=== PATIENT | male | born 1950 | race Caucasian/White ===

== ENCOUNTER 2017-11-04 09:30 | Outpatient (RCR) | payer MEDICARE, SELFPAY | END 2017-11-10 23:59 | LOC: CR 09:30 | PROVIDERS: Visit Provider Internal Medicine Cardiovascular Disease | DX: I25.118 Atherosclerotic heart disease of native coronary artery with other forms of angina pectoris (principal); I47.2 Ventricular tachycardia; I25.5 Ischemic cardiomyopathy; I50.9 Heart failure, unspecified; R06.09 Other forms of dyspnea; R07.9 Chest pain, unspecified; R94.30 Abnormal result of cardiovascular function study, unspecified; I25.2 Old myocardial infarction; Z95.1 Presence of aortocoronary bypass graft; Z98.61 Coronary angioplasty status; Z95.810 Presence of automatic (implantable) cardiac defibrillator | CPT/HCPCS: 92971; G0166 ==

== ENCOUNTER → 2018-12-14 12:55 | Outpatient (CLI) | payer MEDICARE, SELFPAY ==
--- NOTE | 2018-12-14 13:45 | RAD_ITS ---
STUDY: X-RAY CHEST REASON FOR EXAM: Male, 68 years old. History of hypercholesterolemia with amiodarone therapy. Shortness of breath. TECHNIQUE: Frontal and lateral views of the chest. COMPARISON: August 12, 2017 FINDINGS: The lungs are hyperexpanded and unchanged. There is no demonstrated pleural abnormality. There is stable cardiomegaly, sternotomy wires, changes of coronary artery bypass grafting and a dual-lead cardiac pacer. Normal mediastinum and hank. Normal visualized pulmonary arteries. There is atherosclerotic calcification of the aortic arch with tortuosity unchanged. There is osteopenia of the thoracic spine with spondylosis, mild anterior wedging of a few mid thoracic vertebral bodies and increased kyphosis. Normal visualized ribs, clavicles, and shoulders. There is no demonstrated abnormality of the visualized soft tissue structures of the upper abdomen. RAD/Chest PA and Lateral IMPRESSION: Stable cardiomegaly with hyperexpansion. No new or acute finding. Electronically Signed: Angelo Gomez MD at 17:51 EST , Service support ,
--- NOTE | 2018-12-16 11:28 | PFT ---
INTRODUCTION: The patient is a 68-year-old male that presents for pulmonary function studies secondary to a diagnosis of hypercholesterolemia. Respiratory therapy reports good patient effort. Bronchodilators were used during testing. INTERPRETATION: Forced expiration spirometry demonstrates no evidence of a large airways obstructive ventilatory defect. There was no significant response to aerosolized bronchodilators. Spirograms are of good quality and plateau gradually. Body plethysmography was performed and reveals lung volumes to be within normal limits. Diffusing capacity by single breath CO is also within normal limits at 79% of predicted. When compared to prior pulmonary function studies from February 2014, there has been a 21% reduction in TLC and a 12% reduction in DLCO. IMPRESSION: Normal pulmonary function studies. There has been changes since the last PFTs were completed in 2013, as noted above.
== END ==
PROVIDERS: Family Provider Family Medicine; PCP Family Medicine; Referring Provider Internal Medicine Cardiovascular Disease; Visit Provider Internal Medicine Cardiovascular Disease
DX: E78.00 Pure hypercholesterolemia, unspecified (principal)
CPT/HCPCS: 71046; 94060; 94726; 94729

== ENCOUNTER → 2019-01-06 08:11 | Outpatient (CLI) | payer MEDICARE, SELFPAY ==
[2018-12-12 09:48] VITALS: BMI 28.5
[2019-01-06 08:55] LABS: AST(SGOT) 19 U/L (15-37); Alanine Aminotransfer ALT/SGPT 33 U/L (16-61); Albumin, Serum 4.2 g/dL (3.2-5.0); Alkaline Phosphatase 104 U/L (45-117); Bilirubin, Direct 0.21 mg/dL (0.00-0.30); Cholesterol 160 mg/dL (200); Globulin 3.7 g/dL (2.2-4.2); High Density Lipoprotein 41 mg/dL; Protein, Total 7.9 g/dL (6.4-8.2); T4 Free Direct 1.18 ng/dL (0.76-1.46); Thyroid Stim Hormone (TSH) 8.33 uIU/mL (0.358-3.74); Triglycerides 269 mg/dL; Very Low Density Lipoprotein 54 mg/dL (5-40)
== END ==
PROVIDERS: Family Provider Family Medicine; PCP Family Medicine; Referring Provider Internal Medicine Cardiovascular Disease; Visit Provider Internal Medicine Cardiovascular Disease
DX: I50.22 Chronic systolic (congestive) heart failure (principal); E78.00 Pure hypercholesterolemia, unspecified
CPT/HCPCS: 36415; 80061; 80076; 84439; 84443

== ENCOUNTER → 2020-06-11 10:24 | Outpatient (CLI) | payer MEDICARE, SELFPAY ==
[2020-02-29 10:15] VITALS: BMI 27.0
--- NOTE | 2020-06-11 10:50 | RAD_ITS ---
STUDY: X-RAY CHEST REASON FOR EXAM: Male, 69 years old. Amiodarone therapy, no chest complaints TECHNIQUE: PA and lateral COMPARISON: 12/14/2018 FINDINGS: There is prominence of the markings in left lower lobe.. There is no demonstrated pleural abnormality. Postop change status post median sternotomy and CABG Normal size heart. Normal mediastinum and hank. Normal visualized pulmonary arteries. Normal visualized aortic arch and descending thoracic aorta. Pacer noted on the right with electrodes in satisfactory position Dorsal spine demonstrates arthritic changes and multilevel chronic compression deformities. Normal visualized ribs, clavicles, and shoulders. There is no demonstrated abnormality of the visualized soft tissue structures of the upper abdomen. No significant change since prior study RAD/Chest PA and Lateral IMPRESSION: No acute cardiopulmonary pathology Electronically Signed: Luis Marrero MD at 21:37 EDT , Service support ,
[2020-06-11 11:39] LABS: AST(SGOT) 17 U/L (15-37); Alanine Aminotransfer ALT/SGPT 26 U/L (16-61); Albumin, Serum 3.7 g/dL (3.2-5.0); Alkaline Phosphatase 122 U/L (45-117); Bilirubin, Direct 0.24 mg/dL (0.00-0.30); Cholesterol 170 mg/dL (200); Globulin 3.9 g/dL (2.2-4.2); High Density Lipoprotein 38 mg/dL; Protein, Total 7.6 g/dL (6.4-8.2); T4 Free Direct 1.26 ng/dL (0.76-1.46); Triglycerides 278 mg/dL; Very Low Density Lipoprotein 56 mg/dL (5-40)
== END ==
PROVIDERS: PCP Internal Medicine Cardiovascular Disease; Referring Provider Internal Medicine Cardiovascular Disease; Visit Provider Internal Medicine Cardiovascular Disease
DX: I25.10 Atherosclerotic heart disease of native coronary artery without angina pectoris (principal); Z95.5 Presence of coronary angioplasty implant and graft; Z95.1 Presence of aortocoronary bypass graft; I25.5 Ischemic cardiomyopathy; I50.22 Chronic systolic (congestive) heart failure; E78.00 Pure hypercholesterolemia, unspecified; Z95.810 Presence of automatic (implantable) cardiac defibrillator; Z79.899 Other long term (current) drug therapy
CPT/HCPCS: 36415; 71046; 80061; 80076; 84439; 84443

== ENCOUNTER → 2020-11-07 08:45 | Outpatient (CLI) | payer MEDICARE, SELFPAY ==
[2020-11-04 13:26] VITALS: BMI 27.8
[2020-11-07 09:46] LABS: AST(SGOT) 17 U/L (15-37); Alanine Aminotransfer ALT/SGPT 27 U/L (16-61); Albumin, Serum 3.7 g/dL (3.2-5.0); Alkaline Phosphatase 126 U/L (45-117); Bilirubin, Direct 0.21 mg/dL (0.00-0.30); Cholesterol 153 mg/dL (200); Globulin 3.9 g/dL (2.2-4.2); High Density Lipoprotein 41 mg/dL; Protein, Total 7.6 g/dL (6.4-8.2); T4 Free Direct 1.42 ng/dL (0.76-1.46); T4 Total, Thyroxin 11.2 ug/dL (4.5-12.1); Thyroid Stim Hormone (TSH) 4.82 uIU/mL (0.358-3.74); Triglycerides 254 mg/dL; Very Low Density Lipoprotein 51 mg/dL (5-40)
== END ==
PROVIDERS: Referring Provider Internal Medicine Cardiovascular Disease; Visit Provider Internal Medicine Cardiovascular Disease
DX: I50.22 Chronic systolic (congestive) heart failure (principal); I25.10 Atherosclerotic heart disease of native coronary artery without angina pectoris; Z95.5 Presence of coronary angioplasty implant and graft; Z95.1 Presence of aortocoronary bypass graft; I25.5 Ischemic cardiomyopathy; I47.2 Ventricular tachycardia; E78.00 Pure hypercholesterolemia, unspecified; Z95.810 Presence of automatic (implantable) cardiac defibrillator
CPT/HCPCS: 36415; 80061; 80076; 84436; 84439; 84443

== ENCOUNTER 2021-10-30 10:52 | Outpatient (CLI) | payer MEDICARE, SELFPAY ==
[2021-10-30 12:01] LABS: Absolute Lymphocyte Count 2.07 X10^3/uL (0.83-4.51); Absolute Neutrophil Count 5.1 X10^3/uL (2.0-7.7); Basophil# 0.06 X10^3/uL; Basophil% 0.7 % (0-1); Eosinophil# 0.24 X10^3/uL; Hematocrit 47.3 % (40-54); Hemoglobin 16.8 g/dL (13.0-16.5); Lymphocyte # 2.07 X10^3/ul (0.83-4.51); Lymphocyte % 25.5 % (19-41); Mean Corp Hgb Conc 35.5 g/dL (32-36); Mean Corpuscular Hgb 29.5 pg (27.0-32.0); Mean Corpuscular Volume 83.1 fL (80-94); Mean Platelet Vol. 9.9 fl (6.2-12.0); Monocyte# 0.63 X10^3/uL; Monocyte% 7.7 % (0-10); NRBC Flagged by Analyzer 0 % (0-5); Neutrophil # 5.08 X10^3/uL (2.7-7.7); Neutrophil % 62.5 % (47-70); Platelet Count 166 K/mm3 (150-450); RBC Distribution Width CV 12.2 % (11.6-14.6); RBC Distribution Width SD 37.1 fl (35.1-43.9); Red Blood Count 5.69 M/mm3 (4.6-6.2); White Blood Count 8.1 K/mm3 (4.4-11.0)
[2021-10-30 12:45] LABS: AST(SGOT) 13 U/L (15-37); Alanine Aminotransfer ALT/SGPT 25 U/L (16-61); Albumin, Serum 3.7 g/dL (3.2-5.0); Alkaline Phosphatase 104 U/L (45-117); Anion Gap 5 (5-15); BUN 13 mg/dL (7-18); BUN/Creat Ratio 12.3 RATIO (10-20); Bilirubin, Direct 0.27 mg/dL (0.00-0.30); Calcium,Total 9.3 mg/dL (8.5-10.1); Chloride 101 mmol/L (98-107); Cholesterol 162 mg/dL (200); Creatinine, Serum 1.06 mg/dL (0.70-1.30); EST Glomerular Filtration Rate 74 mL/min (>60); Est Glom Filt Rate - Afr Amer 89 mL/min (>60); Globulin 4.1 g/dL (2.2-4.2); Glucose 310 mg/dL (74-106); High Density Lipoprotein 41 mg/dL; Potassium 4.5 mmol/L (3.5-5.1); Protein, Total 7.8 g/dL (6.4-8.2); Sodium Level 135 mmol/L (136-145); T4 Free Direct 1.66 ng/dL (0.76-1.46); T4 Total, Thyroxin 14.9 ug/dL (4.5-12.1); Thyroid Stim Hormone (TSH) 0.92 uIU/mL (0.358-3.74); Triglycerides 212 mg/dL; Very Low Density Lipoprotein 42 mg/dL (5-40)
[2021-10-30 13:02] LABS: Digoxin Level 1.42 ng/mL (0.80-2.00)
== END 2021-10-30 23:59 | disposition short-term general hospital (02) ==
LOC: LAB 10:55
PROVIDERS: Referring Provider Nurse Practitioner Family; Visit Provider Nurse Practitioner Family
DX: I25.10 Atherosclerotic heart disease of native coronary artery without angina pectoris (principal); I50.22 Chronic systolic (congestive) heart failure; I47.2 Ventricular tachycardia; I25.5 Ischemic cardiomyopathy; E78.00 Pure hypercholesterolemia, unspecified; E03.2 Hypothyroidism due to medicaments and other exogenous substances; Z95.1 Presence of aortocoronary bypass graft; Z95.5 Presence of coronary angioplasty implant and graft; Z51.81 Encounter for therapeutic drug level monitoring; Z79.899 Other long term (current) drug therapy
CPT/HCPCS: 36415; 80048; 80061; 80076; 80162; 84436; 84439; 84443; 85025

== ENCOUNTER → 2022-06-01 | Outpatient (CLI) | payer MEDICARE, SELFPAY ==
--- NOTE | 2022-06-01 08:36 | ECHOD_ITS ---
Reason For Study: CHF Procedure This was a 2D Doppler, Color Flow transthoracic echocardiogram. The study was technically difficult. Exam performed in department. Left Ventricle Moderate segmental systolic dysfunction (see wall motion). The estimated ejection fraction is 35 %. Diastolic function is indeterminate. Infero-Basal: Hypokinetic. Basal inferoseptal: Hypokinetic. Basal anteroseptal: Hypokinetic. Mid-Anterior : Hypokinetic. Mid-Inferior: Akinetic. Mid- inferoseptal : Akinetic. Mid-anteroseptal : Akinetic. [place] : Akinetic. Right Ventricle Normal RV size. ICD or pacer leads identified within the right ventricle. Normal systolic function. Atria The left atrium is mildly enlarged. Normal right atrium. ICD or pacer leads identified within the right atrium. No doppler evidence for ASD. Mitral Valve There is no mitral annular calcification. Normal mitral valve. Trivial mitral valve insufficiency. Tricuspid Valve Normal tricuspid valve. Trivial tricuspid valve insufficiency. Unable to estimate RV systolic pressure/pulmonary artery pressure due to technically difficult study. Aortic Valve Trisinus/trileaflet aortic valve. Normal aortic valve. Trivial aortic valve insufficiency. Pulmonic Valve The pulmonic valve is not well visualized. Great Vessels The aortic root is not well visualized. Pericardium/Pleural No pericardial effusion. MMode/2D Measurements & Calculations LAV(MOD-bp): 76.9 ml LVAd ap4: 30.6 cm2 LVAd ap2: 26.8 cm2 LAV(MOD-bp) Indexed: 44.0 ml/m2 LVLd ap4: 7.7 cm LVLd ap2: 7.4 cm LAV(MOD-sp2): 62.5 ml EDV(MOD-sp4): 100.3 ml EDV(MOD-sp2): 81.1 ml LAV(MOD-sp4): 64.7 ml EDV(sp4-el): 102.4 ml EDV(sp2-el): 82.8 ml LVAs ap4: 22.8 cm2 LVAs ap2: 19.8 cm2 LVLs ap4: 7.4 cm LVLs ap2: 6.9 cm ESV(MOD-sp4): 56.0 ml ESV(MOD-sp2): 48.2 ml ESV(sp4-el): 59.6 ml ESV(sp2-el): 48.4 ml EF(MOD-sp4): 44.2 % EF(MOD-sp2): 40.6 % EF(sp4-el): 41.9 % SV(MOD-sp4): 44.3 ml SV(MOD-sp2): 33.0 ml SV(sp4-el): 42.9 ml LA A4 area: 23.1 cm2 LA dimension(2D): 4.5 cm RA A4 area: 11.3 cm2 Time Measurements MV dec time: 0.36 sec Doppler Measurements & Calculations MV E max lukas: 27.2 cm/sec Lat Peak E' Lukas: 10.7 cm/sec Med Peak E' Lukas: 4.7 cm/sec MV A max lukas: 59.8 cm/sec E/E' lat: 2.5 E/E' med: 5.8 MV E/A: 0.45 Ao V2 max: 101.5 cm/sec LV V1 max: 75.4 cm/sec MV dec slope: 76.0 cm/sec2 Ao max P.1 mmHg LV V1 max P.3 mmHg Ao V2 mean: 71.4 cm/sec LV V1 mean P.1 mmHg Ao mean P.4 mmHg LV V1 mean: 48.1 cm/sec Ao V2 VTI: 22.3 cm LV V1 VTI: 15.6 cm PA V2 max: 93.4 cm/sec ECHO/Echo Complete Interpretation Summary The study was technically difficult. Moderate segmental systolic dysfunction (see wall motion). The estimated ejection fraction is 35 %. The left atrium is mildly enlarged. Trivial mitral valve insufficiency. Trivial tricuspid valve insufficiency. Trivial aortic valve insufficiency. Unable to estimate RV systolic pressure/pulmonary artery pressure due to techni eryn difficult study. Diastolic function is indeterminate. ICD or pacer leads identified within the right atrium ICD or pacer leads identified within the right ventricle. Ordering Physician: Elijah Turcios Referring Physician: Elijah Turcios Performed By: Drea Schneider RCS
== END | disposition home or self-care (01) ==
LOC: CVS 08:36
PROVIDERS: Referring Provider Nurse Practitioner Family; Visit Provider Nurse Practitioner Family
DX: I25.10 Atherosclerotic heart disease of native coronary artery without angina pectoris (principal); I50.22 Chronic systolic (congestive) heart failure; Z95.1 Presence of aortocoronary bypass graft; Z95.5 Presence of coronary angioplasty implant and graft
CPT/HCPCS: 93306

== ENCOUNTER → 2022-12-03 | Outpatient (CLI) | payer MEDICARE, SELFPAY ==
--- NOTE | 2022-12-03 11:46 | RAD_ITS ---
INDICATION: amiodarone therapy EXAMINATION/TECHNIQUE: X-RAY - XR Chest 2 Views COMPARISON: 06/11/2020 FINDINGS: LINES/DEVICES: Stable transvenous pacemaker. LUNGS: Stable coarsening of interstitial markings. No vascular congestion, consolidation or pleural effusion. MEDIASTINUM AND CARDIOVASCULAR STRUCTURES: Cardiac silhouette not enlarged. Central airways and mediastinal contour are unremarkable. BONES AND SOFT TISSUES: No acute changes. RAD/Chest PA and Lateral IMPRESSION: No radiographic evidence of acute cardiopulmonary disease. Electronically Signed: Guanaco Armas MD at 0:24 EST ,
[2022-12-03 13:16] LABS: AST(SGOT) 18 U/L (15-37); Alanine Aminotransfer ALT/SGPT 26 U/L (16-61); Albumin, Serum 3.7 g/dL (3.2-5.0); Alkaline Phosphatase 117 U/L (45-117); Bilirubin, Direct 0.22 mg/dL (0.00-0.30); Cholesterol 185 mg/dL (200); Globulin 3.8 g/dL (2.2-4.2); High Density Lipoprotein 45 mg/dL; Protein, Total 7.5 g/dL (6.4-8.2); Thyroid Stim Hormone (TSH) 3.36 uIU/mL (0.358-3.74); Triglycerides 199 mg/dL; Very Low Density Lipoprotein 40 mg/dL (5-40)
== END | disposition home or self-care (01) ==
LOC: RAD 11:45
PROVIDERS: Visit Provider Internal Medicine Cardiovascular Disease
DX: I25.10 Atherosclerotic heart disease of native coronary artery without angina pectoris (principal); I50.22 Chronic systolic (congestive) heart failure; I47.20 Ventricular tachycardia, unspecified; Z95.5 Presence of coronary angioplasty implant and graft; Z95.1 Presence of aortocoronary bypass graft; I25.5 Ischemic cardiomyopathy; E78.00 Pure hypercholesterolemia, unspecified
CPT/HCPCS: 36415; 71046; 80061; 80076; 84436; 84443

== ENCOUNTER → 2023-12-03 | Outpatient (CLI) | payer MEDICARE, SELFPAY ==
[2023-12-03 10:36] LABS: Absolute Lymphocyte Count 2.89 X10^3/uL (0.83-4.51); Absolute Neutrophil Count 5.3 X10^3/uL (2.0-7.7); Basophil# 0.07 X10^3/uL; Basophil% 0.7 % (0-1); Eosinophil# 0.37 X10^3/uL; Eosinophils% 3.9 % (0-5); Hemoglobin 15.1 g/dL (13.0-16.5); Lymphocyte # 2.89 X10^3/ul (0.83-4.51); Lymphocyte % 30.5 % (19-41); Mean Corp Hgb Conc 34.3 g/dL (32-36); Mean Corpuscular Hgb 28.5 pg (27.0-32.0); Mean Corpuscular Volume 83.2 fL (80-94); Mean Platelet Vol. 9.8 fl (6.2-12.0); Monocyte# 0.81 X10^3/uL; Monocyte% 8.5 % (0-10); NRBC Flagged by Analyzer 0 % (0-5); Neutrophil # 5.29 X10^3/uL (2.7-7.7); Neutrophil % 55.8 % (47-70); Platelet Count 208 K/mm3 (150-450); RBC Distribution Width CV 12.6 % (11.6-14.6); Red Blood Count 5.29 M/mm3 (4.6-6.2); White Blood Count 9.5 K/mm3 (4.4-11.0)
[2023-12-03 11:45] LABS: AST(SGOT) 15 U/L (15-37); Alanine Aminotransfer ALT/SGPT 18 U/L (16-61); Albumin, Serum 3.7 g/dL (3.2-5.0); Alkaline Phosphatase 117 U/L (45-117); Anion Gap 8 (5-15); BUN 20 mg/dL (7-18); BUN/Creat Ratio 17.7 RATIO (10-20); Calcium,Total 9.5 mg/dL (8.5-10.1); Chloride 101 mmol/L (98-107); Cholesterol 189 mg/dL (200); Creatinine, Serum 1.13 mg/dL (0.70-1.30); EST Glomerular Filtration Rate 68 mL/min (>60); Est Glom Filt Rate - Afr Amer 82 mL/min (>60); Globulin 3.8 g/dL (2.2-4.2); Glucose 317 mg/dL (74-106); High Density Lipoprotein 44 mg/dL; Magnesium 1.9 mg/dL (1.6-2.6); Potassium 4.3 mmol/L (3.5-5.1); Protein, Total 7.5 g/dL (6.4-8.2); Sodium Level 137 mmol/L (136-145); T4 Free Direct 1.56 ng/dL (0.76-1.46); Thyroid Stim Hormone (TSH) 5.99 uIU/mL (0.358-3.74); Triglycerides 140 mg/dL; Very Low Density Lipoprotein 28 mg/dL (5-40)
== END | disposition home or self-care (01) ==
LOC: LAB 09:49
PROVIDERS: Referring Provider Nurse Practitioner Family; Visit Provider Nurse Practitioner Family
DX: E78.00 Pure hypercholesterolemia, unspecified (principal); I25.5 Ischemic cardiomyopathy; Z79.899 Other long term (current) drug therapy
CPT/HCPCS: 36415; 80053; 80061; 83735; 84439; 84443; 85025

== ENCOUNTER → 2025-03-26 | Outpatient (CLI) | payer MEDICARE, SELFPAY ==
[2025-03-26 12:51] LABS: Absolute Lymphocyte Count 1.56 X10^3/uL (0.83-4.51); Absolute Neutrophil Count 4.7 X10^3/uL (2.0-7.7); Basophil# 0.07 X10^3/uL; Eosinophil# 0.37 X10^3/uL; Eosinophils% 5.1 % (0-5); Hematocrit 40.9 % (40-54); Hemoglobin 13.6 g/dL (13.0-16.5); Lymphocyte # 1.56 X10^3/ul (0.83-4.51); Lymphocyte % 21.6 % (19-41); Mean Corp Hgb Conc 33.3 g/dL (32-36); Mean Corpuscular Hgb 28.8 pg (27.0-32.0); Mean Corpuscular Volume 86.7 fL (80-94); Mean Platelet Vol. 9.9 fl (6.2-12.0); Monocyte# 0.53 X10^3/uL; Monocyte% 7.4 % (0-10); NRBC Flagged by Analyzer 0 % (0-5); Neutrophil # 4.66 X10^3/uL (2.7-7.7); Neutrophil % 64.6 % (47-70); Platelet Count 196 K/mm3 (150-450); RBC Distribution Width CV 13.8 % (11.6-14.6); RBC Distribution Width SD 42.7 fl (35.1-43.9); Red Blood Count 4.72 M/mm3 (4.6-6.2); White Blood Count 7.2 K/mm3 (4.4-11.0)
[2025-03-26 13:27] LABS: Magnesium 1.8 mg/dL (1.5-2.2)
[2025-03-27 15:17] LABS: ALB/GLOB Ratio 1.3 RATIO (0.9-2.4); AST(SGOT) 20 U/L (<=37); Alanine Aminotransfer ALT/SGPT 14 U/L (<=46); Albumin, Serum 3.7 g/dL (3.4-4.8); Alkaline Phosphatase 115 U/L (40-129); Anion Gap 13 (5-15); BUN 16 mg/dL (4-19); BUN/Creat Ratio 11.8 RATIO (10-20); Calcium,Total 9.6 mg/dL (7.6-11.0); Carbon Dioxide 22.9 mmol/L (21.0-32.0); Chloride 99 mmol/L (98-108); Cholesterol 198 mg/dL (<=200); Creatinine, Serum 1.32 mg/dL (0.70-1.20); EST Glomerular Filtration Rate 57 (>60); Globulin 2.8 g/dL (2.2-4.2); Glucose 339 mg/dL (70-99); High Density Lipoprotein 38 mg/dL; Low Density Lipoprotein Calc. 131 mg/dL; Potassium 4.5 mmol/L (3.3-5.1); Protein, Total 6.5 g/dL (5.9-8.4); Sodium Level 135 mmol/L (133-145); Total Bilirubin 0.62 mg/dL (0.00-1.30); Triglycerides 150 mg/dL; Very Low Density Lipoprotein 30 mg/dL (5-40); cholesterol:hdl ratio screen 5.28
== END | disposition home or self-care (01) ==
LOC: LAB 11:32
PROVIDERS: Referring Provider Nurse Practitioner Family; Visit Provider Nurse Practitioner Family
DX: I25.10 Atherosclerotic heart disease of native coronary artery without angina pectoris (principal); I47.20 Ventricular tachycardia, unspecified; I25.5 Ischemic cardiomyopathy; Z79.899 Other long term (current) drug therapy
CPT/HCPCS: 36415; 80053; 80061; 83735; 84439; 84443; 85025

== ENCOUNTER 2025-05-21 19:14 | Inpatient (IN) | payer MEDICARE, SELFPAY ==
[2025-05-21] VITALS (17 sets, daily range): BP systolic 111–138; BP diastolic 73–103; PULSE 68–77; RESP 18–26; TEMP 36.3–36.6; O2SAT 52–100; BMI 30.6
--- NOTE | 2025-05-21 20:06 | EKG12_ITS ---
Test Reason : GENERAL ILLNESS Blood Pressure : */* mmHG Vent. Rate : 69 BPM Atrial Rate : 69 BPM P-R Int : 200 ms QRS Dur : 132 ms QT Int : 494 ms P-R-T Axes : 48 -44 142 degrees QTcB Int : 529 ms Sinus rhythm with occasional Premature ventricular complexes Left axis deviation Left ventricular hypertrophy with QRS widening ( Jake product , Romhilt-Schwarz ) T wave abnormality, consider lateral ischemia Abnormal ECG When compared with ECG of 21-May-2025 20:30, MANUAL COMPARISON REQUIRED DATA IS UNCONFIRMED Confirmed by Misael Olguin ([id number]), editorial clerk RODOLFO ALMONTE ([id number]) on 05/24/2025 6:27:43 AM Referred By: Confirmed By: Misael Olguin
[2025-05-21] MEDS: 0.9% Normal Saline (1000mL) 1,000 ML 999 ML IV (20:22)
--- NOTE | 2025-05-21 20:39 | CPS ---
Patient put on 2L NC due to desaturations during sleep
[2025-05-21 20:45] LABS: Pro- Brain NATRIURETIC PEPTIDE 25021 pg/mL (<=900)
--- NOTE | 2025-05-21 20:45 | CT_ITS ---
EXAM: CT Angiography Chest Without and With Intravenous Contrast CLINICAL INDICATION: SOB TECHNIQUE: Axial computed tomographic angiography images of the chest without and with intravenous contrast. This CT exam was performed using one or more of the following dose reduction techniques: automated exposure control, adjustment of the mA and/or kV according to patient size, and/or use of iterative reconstruction technique. MIP reconstructed images were created and reviewed. COMPARISON: No relevant prior studies available. FINDINGS: PULMONARY ARTERIES: Unremarkable. No pulmonary embolism. AORTA: No acute findings. No thoracic aortic aneurysm. LUNGS AND PLEURAL SPACES: Bilateral pleural effusion with compressive atelectasis. Hazy ground-glass attenuation may reflect pulmonary edema or multifocal pneumonia. No mass. HEART: Unremarkable. No cardiomegaly. No significant pericardial effusion. No evidence of RV dysfunction. BONES/JOINTS: No acute fracture. No dislocation. SOFT TISSUES: Unremarkable. LYMPH NODES: Unremarkable. No enlarged lymph nodes. CT/CTA Chest W/WO Contrast IMPRESSION: 1. No pulmonary embolism. 2. Bilateral pleural effusion with compressive atelectasis. Hazy ground-glass attenuation may reflect pulmonary edema or multifocal pneumonia. Reading Location: [id number]
[2025-05-21 20:48] LABS: Hematocrit 49.7 % (40-54); Hemoglobin 16.2 g/dL (13.0-16.5); Immature Granulocytes Count 0.040 X10^3/uL (0.0-0.0); Mean Corp Hgb Conc 32.6 g/dL (32-36); Mean Corpuscular Volume 87.8 fL (80-94); Mean Platelet Vol. 10.9 fl (6.2-12.0); NRBC Flagged by Analyzer 0 % (0-5); Platelet Count 175 K/mm3 (150-450); RBC Distribution Width CV 15.6 % (11.6-14.6); RBC Distribution Width SD 49.8 fl (35.1-43.9); Red Blood Count 5.66 M/mm3 (4.6-6.2); White Blood Count 8.9 K/mm3 (4.4-11.0)
--- NOTE | 2025-05-21 20:55 | EX.ED.DYSGE1 ---
HPI History of Present Illness Chief Complaint: General Illness Narrative Narrative: Patient is a 74-year-old male past medical history of heart failure, hypercholesteremia, CAD, previous PR, paroxysmal ventricular tachycardia, hypothyroidism who presents to the emergency department the chief complaint of generalized weakness, multiple falls, bilateral lower extremity swelling and right upper extremity swelling. According to family members at bedside they have been trying to get him to come to the emergency department now for a significant amount of time however he was refusing to do so. They note that 2 weekends ago he had a fall leaning to a cabinet and ever since then his right arm has been swollen. They deny any blood thinning medications. Patient states that he is short of breath with minimal movement. [facility] Medical History (Updated 05/21/25 @ 23:[address] Darryl Frazier, ) Presence of stent in coronary artery (~05/2000) Chronic systolic (congestive) heart failure Pure hypercholesterolemia Atherosclerotic heart disease of [place] coronary artery without angina pectoris Edema Chest pain Dyspnea on exertion Congestive heart failure Atherosclerosis of coronary artery bypass graft without angina pectoris Hyperlipidemia Old myocardial infarction Ischemic cardiomyopathy Paroxysmal ventricular tachycardia Encounter for long-term current use of high risk medication Hypothyroidism due to drugs Abnormal stress test Home Medications ?Medication ?Instructions ?Recorded ?Last Taken ?Type aspirin 81 mg tablet,delayed 81 mg PO DAILY 11/07/13 08/17/17 History release multivitamin with folic acid 400 1 tab PO DAILY 05/28/16 Unknown History mcg tablet Handicap Placard #1 ea 06/19/19 Unknown Rx nitroglycerin 0.4 mg sublingual 0.4 mg sublingual Q5M PRN Chest 02/29/20 Unknown Rx tablet Pain #25 tabs levothyroxine 100 mcg tablet 100 mcg PO DAILY #90 tabs 12/03/22 Unknown Rx atorvastatin 40 mg tablet (Lipitor) 40 mg PO Q OTHER DAY #45 tabs 04/17/24 Unknown Rx Handicap Placcard #1 ea 07/27/24 Unknown Rx clopidogrel 75 mg tablet 75 mg PO DAILY #90 tabs 08/24/24 Unknown Rx amiodarone 200 mg tablet 100 mg (1/2 x 200 mg) PO DAILY #45 04/20/25 Unknown Rx tabs furosemide 40 mg tablet 40 mg PO DAILY #90 tabs 04/20/25 Unknown Rx isosorbide mononitrate 60 mg 60 mg PO BID #180 tabs 04/20/25 Unknown Rx tablet,extended release 24 hr metoprolol tartrate 100 mg tablet 50 mg (1/2 x 100 mg) PO BID #90 04/20/25 Unknown Rx tabs Allergy/AdvReac Type Severity Reaction Status Date / Time lisinopril (From Prinivil) Allergy tongue Verified 05/21/25 19:18 swelling Penicillins Allergy Swelling Verified 05/21/25 19:18 Family History Father CAD (coronary artery disease) Myocardial infarction Hypertension Mother Bleeding disorder Sister Breast cancer Surgical History (Updated 05/21/25 @ 23:[address] Darryl Frazier DO) Presence of coronary angioplasty implant and graft (~05/2000) History of coronary artery bypass surgery (~09/09/01) Hx of CABG (~09/09/01) History of implantable cardiac defibrillator (ICD) Postsurgical percutaneous transluminal coronary angioplasty (PTCA) status (~05/2000) Social History Smoking Status: Never smoker alcohol intake: never substance use type: does not use caffeine: Yes Type: carbonated beverages and tea what type of physical activity do you participate in: none seatbelt use: always do you feel safe at home: Yes ROS ROS ED ROS Narrative Constitutional: Denies any fevers or chills Eyes: Denies change in vision double vision blurry vision Cardiovascular: Denies any chest pain or palpitations Respiratory: Complains of shortness of breath Abdomen: Denies abdominal pain nausea vomiting diarrhea : Denies any urinary symptoms Neurological: Complains of generalized weakness with multiple falls denies any numbness or tingling Musculoskeletal: Complains of right upper extremity swelling as well as bilateral lower extremity swelling Skin: Denies any new rashes or lesions EXAM Physical Exam Narrative Exam Narrative: General: Patient lying in bed rest comfortably did not appear to be acute distress Head: Atraumatic, normocephalic Eyes: PERRL bilaterally, EOMI bilateral, no conjunctival injection noted Neck: Soft, supple, trachea midline Cardiovascular: Regular rate and rhythm Respiratory: Clear to auscultation bilaterally Abdomen: Soft, nondistended, no tenderness palpation Extremities: Radial pulses +2/4 in the bilateral extremities, patient's right upper extremity is swollen and edematous when compared to the left, compartments are soft compressible, patient has 2+ pitting edema in the bilateral lower extremities Musculoskeletal: All bony prominences palpated joints taken through full range of motion no pain elicited Neurological: Patient following commands and that he was at [facility] years 2024 Skin: Warm, dry, see extremities Const Vital Signs: 05/21/25 19:16 05/21/25 19:59 05/21/25 20:00 Temperature 97.4 F L Temperature Source Oral Pulse Rate 70 70 70 Respiratory Rate 18 26 H 26 H Blood Pressure 114/73 Blood Pressure Mean 86 Pulse Ox 96 91 96 Oxygen Delivery Method Room Air Oxygen Flow Rate (L/min) 05/21/25 20:14 05/21/25 20:15 05/21/25 20:25 Temperature Temperature Source Pulse Rate 70 Respiratory Rate 22 H Blood Pressure Blood Pressure Mean Pulse Ox 94 95 Oxygen Delivery Method Room Air Nasal Cannula Oxygen Flow Rate (L/min) 2 05/21/25 20:30 05/21/25 20:34 05/21/25 20:34 Temperature Temperature Source Pulse Rate 68 Respiratory Rate 20 H Blood Pressure 111/87 H 111/87 H Blood Pressure Mean 94 94 Pulse Ox 96 Oxygen Delivery Method Oxygen Flow Rate (L/min) 05/21/25 20:34 05/21/25 20:45 05/21/25 21:00 Temperature Temperature Source Pulse Rate 69 77 Respiratory Rate 25 H 22 H Blood Pressure 111/87 H 138/103 H Blood Pressure Mean 94 112 Pulse Ox 98 99 Oxygen Delivery Method Oxygen Flow Rate (L/min) 05/21/25 21:15 05/21/25 21:30 05/21/25 21:45 Temperature Temperature Source Pulse Rate 71 Respiratory Rate 19 H Blood Pressure Blood Pressure Mean Pulse Ox 100 52 92 Oxygen Delivery Method Oxygen Flow Rate (L/min) 05/21/25 22:00 05/21/25 22:12 05/21/25 22:15 Temperature Temperature Source Pulse Rate 73 75 Respiratory Rate 18 19 H Blood Pressure 113/103 H Blood Pressure Mean 108 Pulse Ox 99 98 94 Oxygen Delivery Method Oxygen Flow Rate (L/min) 05/21/25 22:30 05/21/25 23:12 Temperature 97.9 F Temperature Source Pulse Rate 74 75 Respiratory Rate 18 21 H Blood Pressure 121/93 H 123/89 H Blood Pressure Mean 103 100 Pulse Ox 96 97 Oxygen Delivery Method Oxygen Flow Rate (L/min) MDM MDM MDM Narrative Medical decision making narrative: Patient is a 74-year-old male who presented to the emergency department the chief complaint of multiple falls, shortness of breath. On the differential diagnose includes but not limited to CHF, pneumonia, pneumothorax, ACS, PE, right upper extremity DVT or superficial venous thrombosis. Once workup is obtained reviewed he will be reevaluated. Patient's CBC was reviewed showed no evidence leukocytosis white blood count normal 8.9, hemoglobin 16.2, plate count was 175. Patient INR is 1.2, PT of 15. Patient sodium was 133, potassium normal 3.4, creatinine was elevated to 1.43, glucose was 428, anion gap of 20. Patient's troponin was 64 with a delta troponin of 46. Patient's EKG reviewed showed sinus rhythm with occasional PVCs noted with a rate of 69 bpm with a NM interval at 200. Patient's proBNP was noted be 25,021. Patient CTA of the chest showed no evidence of PE, bilateral pleural effusion with compressive atelectasis CT groundglass attenuation may be reflect pulmonary edema or multifocal pneumonia. Patient has not coughing anything up therefore do not believe this is pneumonia therefore we will hold off on antibiotics. Patient's echocardiogram from 06/01/2022 was reviewed which showed ejection fraction of 35% at that point in time Patient was given 40 mg IV Lasix. Will discuss case with hospitalist for admission for generalized weakness, shortness of breath with pitting edema bilateral lower extremities and evidence of heart failure. Will also discuss the patient's right upper extremity swelling with hospitalist and need for anticoagulation until duplex can be obtained since I was unable to obtain a right upper extremity ultrasound as the techs were unable to do this. Discussed case with hospitalist Dr. Chang who accept patient for admission. Updated the patient and family emerged bedside they are agreeable this plan all question concerns answered. Lab Data Labs: Laboratory Results - last 24 hr 05/21/25 05/21/25 19:56 22:15 WBC 8.9 RBC 5.66 Hgb 16.2 Hct 49.7 MCV 87.8 MCH 28.6 MCHC 32.6 RDW Std Deviation 49.8 H RDW Coeff of Shilo 15.6 H Plt Count 175 MPV 10.9 Immature Gran % (Auto) 0.400 Neut % (Auto) 69.4 Lymph % (Auto) 21.4 [place] % (Auto) 7.0 Eos % (Auto) 1.5 Baso % (Auto) 0.3 Absolute Neuts (auto) 6.2 Absolute Lymphs (auto) 1.91 Nucleated RBC % 0 PT 15.0 H INR 1.2 APTT 26.3 Sodium 133 Potassium 3.4 Chloride 89 L Carbon Dioxide 23.4 Anion Gap 20 H BUN 21 H Creatinine 1.43 H Estim Creat Clear Calc 44.86 L Est GFR (MDRD) Non-Af 52 L BUN/Creatinine Ratio 14.8 Glucose 420 H Calcium 9.1 Troponin T High Sens 64 H* Troponin T Hi Sens 2 Hr 46 [place] [address] H Radiography Diagnostic Testing: Clinical Impression(s) from Imaging Studies Chest CTA 05/21/25 20:45 IMPRESSION: 1. No pulmonary embolism. 2. Bilateral pleural effusion with compressive atelectasis. Hazy ground-glass attenuation may reflect pulmonary edema or multifocal pneumonia. Reading Location: [facility] Discharge Plan Triage Chief Complaint: General Illness ED Provider: Darryl Frazier Dx/Rx/DC Orders Clinical Impression: Dyspnea on exertion, History of implantable cardiac defibrillator (ICD), Bilateral pleural effusion, CHF exacerbation, Swelling of right upper extremity Prescriptions: No Action (DME) Handicap Placard Qty: 1 0RF Rx Instructions: Good from 06/19/2019-06/19/2024; nitroglycerin 0.4 mg tablet, sublingual 0.4 mg SUBLINGUAL Q5M PRN (Reason: Chest Pain) Qty: 25 1RF levothyroxine 100 mcg tablet 100 mcg PO DAILY Qty: 90 4RF (DME) Handicap Placcard See Rx Instructions .Route .MEDSUPPLY Qty: 1 0RF Rx Instructions: Dx: Debility Exp: 07/2029 aspirin 81 MG tablet,delayed release (DR/EC) 81 mg PO DAILY multivitamin with folic acid 1 TABLET tablet 1 tab PO DAILY atorvastatin [Lipitor] 40 mg tablet 40 mg PO Q OTHER DAY Qty: 45 3RF clopidogrel 75 mg tablet 75 mg PO DAILY Qty: 90 3RF metoprolol tartrate 100 mg tablet 50 mg PO BID Qty: 90 3RF isosorbide mononitrate 60 mg tablet extended release 24 hr 60 mg PO BID Qty: 180 3RF Rx Instructions: swallow whole with glass of water; do not crush/chew /dissolve /cut/break amiodarone 200 mg tablet 100 mg PO DAILY Qty: 45 3RF furosemide 40 mg tablet 40 mg PO DAILY Qty: 90 3RF Primary Care Provider: Care Physician,No Primary Referrals: Care Physician,No Primary [Primary Care Provider] - Print Language: Nepali Disposition Disposition: Acute Care Hospital [facility]
[2025-05-21 20:56] LABS: Prothrombin Time (Protime)PT. 15.0 SECONDS (11.7-14.9)
[2025-05-21 20:57] LABS: Partial Thromboplast Time 26.3 Seconds (24.1-36.2)
[2025-05-21 20:59] LABS: Anion Gap 20 (5-15); BUN 21 mg/dL (4-19); BUN/Creat Ratio 14.8 RATIO (10-20); Calcium,Total 9.1 mg/dL (7.6-11.0); Carbon Dioxide 23.4 mmol/L (21.0-32.0); Chloride 89 mmol/L (98-108); Estimated Creatinine Clearance 44.86 ml/min (50-250); Glucose 420 mg/dL (70-99); Potassium 3.4 mmol/L (3.3-5.1)
[2025-05-21 21:16] LABS: Troponin T High Sensitivity 64 ng/L (<=22)
--- NOTE | 2025-05-21 21:48 | CM.ED ---
Social Work Reason for visit: No PCP SW introduced self to patient and patients family, discussed role with hospital and reason for visit. Family stated they recently made patient an appointment with a doctor but would not mind a resource list. [facility] provider list given. No further needs identified at this time. Kerri Whatley, FILL MANAGER, [employer]
[2025-05-21 22:56] LABS: Troponin T High Sens 2 HR 46 ng/L (<=22)
--- NOTE | 2025-05-21 23:17 | HP.PCM.HOS_ITS ---
[facility] - General General Date of Admission: 05/21/25 Date of Service: 05/21/25 Chief Complaint: Swelling in Extremities, Generalized Weakness and Falls. HPI Narrative ALEXSANDRA MANLEY, is a 74 M with a past medical history of essential hypertension; on metoprolol and furosemide, hyperlipidemia; on atorvastatin, hypothyroidism; on levothyroxine, obesity; with BMI of 30.7 this admission, CAD; s/p OH with LAD stent (1999) and CABG x 2 (2000) on BASA and clopidogrel plus ISMO and prn SL NTG, history of paroxysmal ventricular tachycardia; on amiodarone, chronic systolic CHF; with reduced LVEF ~35% (2021), history of ischemic cardiomyopathy, history of arrhythmia; s/p PPM/AICD and OA who presents to [facility] ER complaining of swelling in extremities with generalized weakness and falls. Mr. Manley reports his symptoms began approximately 2 weeks ago after a fall with subsequent RUE swelling. He then noticed bilateral LE swelling with PERERA that progressed to SOB at rest. His family had apparently been trying to get him to the hospital sooner - but he was refusing up until now. He was noted to have suspected HSV infection of Right groin with bacterial superinfection causing Cellulitis but he states he has no pain in the area and he has no idea how long it has been there. He denies associated fever, chills, nausea, vomiting, diarrhea, constipation, chest pain, palpitations, heart racing, dysuria, hematuria or headache. In the ER he was noted to have a highly elevated NT pro-BNP II of 25,021 pg/mL present on admission with a corresponding CT scan of the chest with IV contrast that revealed no pulmonary embolism but did show bilateral pleural effusions with compressive atelectasis and hazy ground-glass attenuation which may reflect pulmonary edema or multifocal pneumonia along with a mildly elevated troponin T of 64 ng/L suspected to be due to Acute Cardiac Strain complicated by clinical evidence of Dyspnea on Exertion with Generalized Weakness and Falls with RUE swelling for ~2 weeks after recent fall complicated by suspected HSV infection of the Right groin with secondary Bacterial Cellulitis and Wound and he was then admitted to the PCU for ongoing care for a stay that is expected to extend beyond 2 midnights. [facility] Medical History (Updated 05/22/25 @ 03:[address] Edmar de David, DO) Presence of stent in coronary artery (~05/2000) Chronic systolic (congestive) heart failure Pure hypercholesterolemia Atherosclerotic heart disease of [place] coronary artery without angina pectoris Edema Chest pain Dyspnea on exertion Congestive heart failure Atherosclerosis of coronary artery bypass graft without angina pectoris Hyperlipidemia Old myocardial infarction Ischemic cardiomyopathy Paroxysmal ventricular tachycardia Encounter for long-term current use of high risk medication Hypothyroidism due to drugs Abnormal stress test Home Medications ?Medication ?Instructions ?Recorded ?Last Taken ?Type aspirin 81 mg tablet,delayed 81 mg PO DAILY 11/07/13 1 10/17/16 History release multivitamin with folic acid 400 1 tab PO DAILY Unknown History mcg tablet Handicap Placard #1 ea 06/19/19 Unknown Rx nitroglycerin 0.4 mg sublingual 0.4 mg sublingual Q5M PRN Chest 02/29/20 Unknown Rx tablet Pain #25 tabs levothyroxine 100 mcg tablet 100 mcg PO DAILY #90 tabs 12/03/22 Unknown Rx atorvastatin 40 mg tablet (Lipitor) 40 mg PO Q OTHER D AY #45 tabs 04/17/24 Unknown Rx Handicap Placcard #1 ea 07/27/24 Unknown Rx clopidogrel 75 mg tablet 75 mg PO DAILY #90 tabs 08/11 02/01 Unknown Rx amiodarone 200 mg tablet 100 mg (1/2 x 200 mg) PO LUCIA LY #45 04/20/25 Unknown Rx tabs furosemide 40 mg tablet 40 mg PO DAILY #90 tabs 04/10 11/04 Unknown Rx isosorbide mononitrate 60 mg 60 mg PO BID #180 tabs Unknown Rx tablet,extended release 24 hr metoprolol tartrate 100 mg tablet 50 mg (1/2 x 100 mg) PO BID #90 04/20/25 Unknown Rx tabs Allergy/AdvReac Type Severity Reaction Status Date / Time lisinopril (From Prinivil) Allergy tongue Verified 05/21/25 19:18 swelling Penicillins Allergy Swelling Verified 05/21/25 19:18 Family History Father CAD (coronary artery disease) Myocardial infarction Hypertension Mother Bleeding disorder Sister Breast cancer Surgical History Presence of coronary angioplasty implant and graft (~05/2000) History of coronary artery bypass surgery (~09/09/01) Hx of CABG (~09/09/01) History of implantable cardiac defibrillator (ICD) Postsurgical percutaneous transluminal coronary angioplasty (PTCA) status (~05/2000) Social History Smoking Status: Never smoker alcohol intake: never substance use type: does not use caffeine: Yes Type: carbonated beverages and tea what type of physical activity do you participate in: none seatbelt use: always do you feel safe at home: Yes ROS ROS Narrative Review of Systems: Constitutional: Patient denies fever or chills. Eyes: Patient denies changes in vision or discharge from eyes. ENT: Patient denies runny nose, sore throat or ear pain. Resp: Patient admits to PERERA that progressed to SOB at rest. CV: Patient admits to LE swelling but he denies chest pain, palpitations or heart racing. GI: Patient denies abdominal pain, nausea, vomiting, diarrhea or constipation. : Patient denies dysuria or hematuria. MSK: Patient admits to generalized weakness with fall and RUE swelling ~2 weeks ago as per HPI. Skin: Patient was unaware of groin infection until it was pointed out to him. Psych: Patient denies symptoms of uncontrolled depression or anxiety. Neuro: Patient denies headache, paresthesias or focal neurologic deficits. Allergy: Patient denies lip swelling, tongue swelling or urticaria. Hematology: Patient denies easy bleeding or easy bruisability. Endocrinology: Patient denies polyuria, polydipsia, polyphagia or heat/cold intolerance. 14 point ROS otherwise negative except for positives noted above in HPI. Vital Signs Vital Signs Vital Signs: 05/21/25 19:16 05/21/25 19:59 05/21/25 20:00 Temperature 97.4 F L Temperature Source Oral Pulse Rate 70 70 70 Respiratory Rate 18 26 H 26 H Blood Pressure 114/73 Blood Pressure Mean 86 Pulse Ox 96 91 96 Oxygen Delivery Method Room Air Oxygen Flow Rate (L/min) 05/21/25 20:14 05/21/25 20:15 05/21/25 20:25 Temperature Temperature Source Pulse Rate 70 Respiratory Rate 22 H Blood Pressure Blood Pressure Mean Pulse Ox 94 95 Oxygen Delivery Method Room Air Nasal Cannula Oxygen Flow Rate (L/min) 2 05/21/25 20:30 05/21/25 20:34 05/21/25 20:34 Temperature Temperature Source Pulse Rate 68 Respiratory Rate 20 H Blood Pressure 111/87 H 111/87 H Blood Pressure Mean 94 94 Pulse Ox 96 Oxygen Delivery Method Oxygen Flow Rate (L/min) 05/21/25 20:34 05/21/25 20:45 05/21/25 21:00 Temperature Temperature Source Pulse Rate 69 77 Respiratory Rate 25 H 22 H Blood Pressure 111/87 H 138/103 H Blood Pressure Mean 94 112 Pulse Ox 98 99 Oxygen Delivery Method Oxygen Flow Rate (L/min) 05/21/25 21:15 05/21/25 21:30 05/21/25 21:45 Temperature Temperature Source Pulse Rate 71 Respiratory Rate 19 H Blood Pressure Blood Pressure Mean Pulse Ox 100 52 92 Oxygen Delivery Method Oxygen Flow Rate (L/min) 05/21/25 22:00 05/21/25 22:12 05/21/25 22:15 Temperature Temperature Source Pulse Rate 73 75 Respiratory Rate 18 19 H Blood Pressure 113/103 H Blood Pressure Mean 108 Pulse Ox 99 98 94 Oxygen Delivery Method Oxygen Flow Rate (L/min) 05/21/25 22:30 05/21/25 23:12 Temperature 97.9 F Temperature Source Pulse Rate 74 75 Respiratory Rate 18 21 H Blood Pressure 121/93 H 123/89 H Blood Pressure Mean 103 100 Pulse Ox 96 97 Oxygen Delivery Method Oxygen Flow Rate (L/min) Weight Weight: 178 lb 9.191 oz Body Mass Index (BMI) 30.6 Physical Exam Const alert, oriented x3, no apparent distress and average body habitus Constitutional Narrative: Chronically ill but non-toxic in appearance. General Appearance: cooperative HEENT normocephalic, head/scalp atraumatic, hearing grossly normal bilaterally and moist oral mucous membranes HEENT Narrative: Patient has suspected HSV lesion on tongue. Eyes PERRL, EOMs intact bilaterally and conjunctivae normal Neck no lymphadenopathy, supple and no JVD Resp Resp Narrative: Diminished breath sounds throughout with mildly increased work of breathing. Cardio regular rate and regular rhythm GI normal to inspection, nondistended, normoactive bowel sounds, soft to palpation, non-tender and non-distended Extremity Extremity Narrative: ~2+ bilateral LE symmetrical pitting edema with RUE swollen compared to the LUE. Skin Skin Narrative: Patient has apparent HSV infection in entire Right groin with bacterial superinfection and pus emanating from wound. Neuro oriented x3, CN's II-XII intact bilaterally, moves all extremities and no focal motor deficits Sensorium / Orientation: awake, alert, oriented to person, oriented to place and oriented to time Speech: speech normal Psych affect normal Results Medical Records Data Attestation: I reviewed the patient's medical records Lab / Micro Data Attestation: I reviewed the patient's lab results. 05/21/25 19:56 05/21/25 19:56 Labs: Laboratory Results - last 24 hr 05/21/25 19:56: WBC 8.9, RBC 5.66, Hgb 16.2, Hct 49.7, MCV 87.8, MCH 28.6, MCHC 32.6, RDW Std Deviation 49.8 H, RDW Coeff of [place] 15.6 H, Plt Count 175, MPV 10.9, Immature Gran % (Auto) 0.400, Neut % (Auto) 69.4, Lymph % (Auto) 21.4, [place] % (Auto) 7.0, Eos % (Auto) 1.5, Baso % (Auto) 0.3, Absolute Neuts (auto) 6.2, Absolute Lymphs (auto) 1.91, Nucleated RBC % 0, PT 15.0 H, INR 1.2, APTT 26.3, Sodium 133, Potassium 3.4, Chloride 89 L, Carbon Dioxide 23.4, Anion Gap 20 H, BUN 21 H, Creatinine 1.43 H, Estim Creat Clear Calc 44.86 L, Est GFR (MDRD) Non-Af 52 L, BUN/Creatinine Ratio 14.8, Glucose 420 H, Calcium 9.1, T roponin T High Sens 64 H*, [place] [address] H 05/21/25 22:15: Troponin T Hi Sens 2 Hr 46 H Imaging Radiology Impression Chest CTA 05/21/25 20:45 IMPRESSION: 1. No pulmonary embolism. 2. Bilateral pleural effusion with compressive atelectasis. Hazy ground-glass attenuation may reflect pulmonary edema or multifocal pneumonia. Reading Location: [facility] Assessment & Plan Assessment/Plan (1) CHF exacerbation: QUALIFIERS: Heart failure type: systolic Qualified Code(s): I 50.23 - Acute on chronic systolic (congestive) heart failure (2) Bilateral pleural effusion: (3) Dyspnea on exertion: (4) HSV infection: (5) Cellulitis: QUALIFIERS: Site of cellulitis: other site Qualified Code(s): L 03.818 - Cellulitis of other sites (6) Swelling of right upper extremity: (7) senior care current use of amiodarone: (8) Atherosclerotic heart disease of [place] coronary artery without angina pectoris: QUALIFIERS: [place] vs. transplanted heart: [place] heart Qualified Code(s): I25.10 - Atherosclerotic heart disease of [place] coronary artery without angina pectoris (9) Presence of stent in coronary artery: (10) Ischemic cardiomyopathy: (11) Paroxysmal ventricular tachycardia: (12) History of implantable cardiac defibrillator (ICD): (13) Pure hypercholesterolemia: (14) Old myocardial infarction: PLAN: Plan 1. Highly elevated NT pro-BNP II of 25,021 pg/mL present on admission with a corresponding CT scan of the chest with IV contrast that revealed no pulmonary embolism but did show bilateral pleural effusions with compressive atelectasis and hazy ground-glass attenuation which may reflect pulmonary edema or multifocal pneumonia consistent with AE of Chronic Systolic CHF; with reduced LVEF ~35% (2021) - Admit to PCU. Continue IV furosemide begun in the ER BID plus give supplemental KCl and magnesium. Check echocardiogram to reevaluate LVEF. Give acetaminophen prn for pain or fever. Finally, we will consult [facility] to see this patient on-rounds in the AM for further recommendations with help appreciated in advance. 2. Elevated Troponin T of 64 ng/L due to #1 causing Acute Cardiac Strain in the setting of previously known CAD; s/p OH with LAD stent (1999) and CABG x 2 (2000) on BASA and clopidogrel plus ISMO and prn SL NTG - Serialize troponin. Continue BASA plus clopidogrel as before. Doubt ACS. 3. Dyspnea on exertion attributable to #1 & #2 - Wean supplemental oxygen as tolerated. 4. Pus emanating from Right groin/thigh consistent with suspected Cellulitis in the setting of Chronic HSV infection complicating #1 - #3 - Start empiric IV vancomycin and IV aztreonam given PCN allergy and drug interaction with quinolones and amiodarone. Start IV acyclovir and check to confirm HSV. Checked CT scan of abdomen and pelvis to ensure no deep abscess. Finally, we will consult Wound RN to see this patient on-rounds in the AM for further recommendations with help appreciated in advance. 5. Generalized Weakness and Falls with RUE swelling for ~2 weeks after recent fall adding to the burden of disease outlined from #1 - #4 - Check RUE Doppler in AM to evaluate for possible DVT. Patient treated with full-dose LMWH in ER. 6. Obesity; with BMI of 30.7 this admission - Weight loss will be encouraged. Check TSH. This complicates his case and may hamper recovery. 7. History of paroxysmal ventricular tachycardia; on amiodarone - Resume amiodarone as previous. 8. History of ischemic cardiomyopathy and arrhythmia; s/p PPM/AICD - Noted. 9. Essential hypertension; on metoprolol and furosemide - Maintain metoprolol and switch furosemide to IV as outlined in #1. 10. Hyperlipidemia; on atorvastatin - Continue statin and check Lipid Profile. 11. Hypothyroidism; on levothyroxine - Resume levothyroxine and check TSH. 12. OA - Give acetaminophen prn as outlined in #1. 13. DVT prophylaxis - Patient treated with full-dose LMWH for #4 until DVT ruled out in Doppler. Total time: Approximately (but not less than) 75 minutes. Charges/Coding Visit Charges Inpatient E&M: 80410 Init Hosp L3
--- NOTE | 2025-05-21 23:59 | VDUE_ITS ---
Reason For Study Reason For Study: Rt Arm Swelling Right Proximal Right jugular vein is spontaneous, widely patent, phasic, with no intraluminal echogenicity noted. Subclavian Vein is dilated and NONCOMPRESSIBLE. Finding is consistent with ACUTE DVT. Right Lower Arm Right radial vein is compressible. Right ulnar vein is compressible. Right Arm Axillary Vein is dilated and NONCOMPRESSIBLE. Finding is consistent with ACUTE DVT. Brachial Vein is dilated and NONCOMPRESSIBLE. Finding is consistent with ACUTE DVT. Right cephalic vein is compressible. Basilic Vein is dilated and NONCOMPRESSIBLE. Finding is consistent with ACUTE DVT. Patient Safety [facility]. Procedure This was a unilateral right upper extremity venous doppler examination. VL/Venous Duplex US, Unilateral Interpretation Summary Acute deep vein thrombosis noted in the right subclavian vein, axillary vein, b rachial vein. Acute superficial vein thrombosis noted in the right basilic vein. Ordering Physician: Edmar Flores Referring Physician: N/A Performed By: Eduardo Long RVT ???
--- NOTE | 2025-05-21 23:59 | ECHOD_ITS ---
Reason For Study Reason For Study: CHF Procedure This was a 2D Doppler, Color Flow transthoracic echocardiogram. The study was technically difficult. Exam performed portable in patient room. Left Ventricle Mildly dilated left ventricle. Mild eccentric left ventricular hypertrophy. EDV 5.4 cm. Severe global left ventricular systolic dysfunction. Paced septal motion. Unable to assess diastolic dysfunction due to arrhythmia. There is severe global hypokinesis noted estimated LVEF 15%. Right Ventricle Normal RV size. ICD or pacer leads identified within the right ventricle. Moderate global right ventricular systolic dysfunction. Atria The left atrium is moderately enlarged. Normal right atrium. Mitral Valve The mitral valve is structurally normal. No prolapse or stenosis seen. Moderate (2+) mitral valve insufficiency. Tricuspid Valve Normal tricuspid valve. Mild to moderate (1-2+) tricuspid valve insufficiency. Right ventricular systolic pressure estimated to be 45-50 mmhg, moderate pulmonary hypertension mmHg. Aortic Valve Trisinus/trileaflet aortic valve. Mild diffuse aortic valve thickening. Mild (1+) aortic valve insufficiency. Pulmonic Valve Normal pulmonic valve. Trivial eccentric pulmonic valve insufficiency. Great Vessels Normal sized aortic root. Normal inferior vena cava. Inferior vena cava collapse with respiration. Pericardium/Pleural No pericardial effusion. MMode/2D Measurements & Calculations LVIDd: 5.4 cm IVSd: 0.80 cm Ao root diam: 3.4 cm LVIDs: 4.7 cm LVPWd: 1.2 cm RVDd: 4.0 cm FS: 12.5 % LAV(MOD-bp): 77.8 ml LVAd ap4: 37.2 cm2 LVAd ap2: 31.8 cm2 LAV(MOD-bp) Indexed: 42.4 ml/m2 LVLd ap4: 9.0 cm LVLd ap2: 7.2 cm LAV(MOD-sp2): 77.3 ml EDV(MOD-sp4): 131.9 ml EDV(MOD-sp2): 117.9 ml LAV(MOD-sp4): 71.6 ml EDV(sp4-el): 131.0 ml EDV(sp2-el): 118.4 ml LVAs ap4: 31.7 cm2 LVAs ap2: 28.1 cm2 LVLs ap4: 8.3 cm LVLs ap2: 7.2 cm ESV(MOD-sp4): 102.2 ml ESV(MOD-sp2): 91.5 ml ESV(sp4-el): 102.9 ml ESV(sp2-el): 93.6 ml EF(MOD-sp4): 22.5 % EF(MOD-sp2): 22.4 % EF(sp4-el): 21.4 % SV(MOD-sp4): 29.6 ml SV(MOD-sp2): 26.4 ml SV(sp4-el): 28.0 ml SI(MOD-sp4): 16.2 ml/m2 SI(MOD-sp2): 14.4 ml/m2 LA A4 area: 23.6 cm2 LA dimension(2D): 3.6 cm RA A4 area: 15.6 cm2 TAPSE: 1.2 cm Time Measurements MV dec time: 0.14 sec Doppler Measurements & Calculations MV E max lukas: 78.3 cm/sec Lat Peak E' Lukas: 7.2 cm/sec Ao V2 max: 88.5 cm/sec MV A max lukas: 44.2 cm/sec E/E' lat: 10.9 Ao max P.1 mmHg MV E/A: 1.8 AI max lukas: 416.2 cm/sec LV V1 max: 66.2 cm/sec PA V2 max: 54.8 cm/sec AI max P.3 mmHg LV V1 max P.8 mmHg AI dec slope: 307.5 cm/sec2 AI P1/2t: 396.4 msec TR max lukas: 348.1 cm/sec TR max P.5 mmHg ECHO/Echo Complete Interpretation Summary Unable to assess diastolic dysfunction due to arrhythmia. Mildly dilated left ventricle.EDV 5.4 cm Severe global left ventricular systolic dysfunction. Mild eccentric left ventricular hypertrophy. There is severe global hypokinesis noted estimated LVEF 15% Normal RV size. Moderate global right ventricular systolic dysfunction. Moderate (2+) mitral valve insufficiency. Mild to moderate (1-2+) tricuspid valve insufficiency. Right ventricular systolic pressure estimated to be 45-50 mmhg, moderate pulmon lev hypertension mmHg. When compared to previous echocardiographic report only, 2021, there is signifi cant worsening systolic function noted on the current study Ordering Physician: Edmar Flores Performed By: Lucy Watts RDCS
[2025-05-22] VITALS (12 sets, daily range): BP systolic 116–133; BP diastolic 70–88; PULSE 75–95; RESP 16–18; TEMP 35.9–36.6; O2SAT 93–100; BMI 29.5; BMI 29.9
--- OUTSIDE RECORDS SUMMARY | 2025-05-22 00:07 | XMS RPT_ITS | CCD ---
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 Balta Sandoval Attending Provider [phone] Dr. Balta Sandoval Referring Provider [phone] Roof CARBONATION EQUIPMENT OPERATOR, CARBONATION EQUIPMENT OPERATOR-C Elijah Baron Attending Provider Care Physician, No Primary Primary Care Provider Unavailable Dr. Balta Sandoval Attending Provider [phone] Dr. Balta Sandoval Referring Provider Care Physician, No Primary Referring Provider Un available Valentina Catalan Attending Provider Unavailable Sari Boswell Attending Provider Unavailable Dr. Mata Das Attending Provider Dr. Mata Das Referring Provider [phone] Roof CARBONATION EQUIPMENT OPERATOR, CARBONATION EQUIPMENT OPERATOR-C Elijah Baron Attending Provider [phone] Dr. Mata Das MD Attending Provider Care Physician, No Primary Primary Care Provider Unavailable Care Physician, No Primary Referring Provider Un available Roof CARBONATION EQUIPMENT OPERATOR-CElijah Attending Provider Roof CARBONATION EQUIPMENT OPERATOR-CElijah Referring Provider Roof CARBONATION EQUIPMENT OPERATORElijah Attending Unavailable Care Physician, No Primary Referring Unava ilable Care Physician, No Primary Primary Care Unava ilable Roof CARBONATION EQUIPMENT OPERATORElijah Attending Unavailable Care Physician, No Primary Primary Care Unava ilable Roof CARBONATION EQUIPMENT OPERATORElijah Referring Unavailable Mata Das Attending Unavailable Mata Das Referring Unavailable Mata Das Attending Unavailable ThiagoMata farley Referring Unavailable Care Physician, No Primary Primary Care Unava ilable ThiagoMata farley Attending Unavailable ThiagoMata farley Referring Unavailable Care Physician, No Primary Primary Care Unava ilable Mata Das Attending Unavailable Care Physician, No Primary Referring Unava ilable Care Physician, No Primary Primary Care Unava ilable Thiago, Austin Attending Unavailable Thiago, Austin Attending Unavailable Thiago, Austin Referring Unavailable Thiago, Austin Attending Unavailable Thiago, Mata Referring Unavailable Thiago, Austin Referring Unavailable Thiago, Austin Attending Unavailable Care Physician, No Primary Primary Care Unava ilable Thiago, Austin Referring Unavailable Thiago, Mata Attending Unavailable Care Physician, No Primary Primary Care Unava ilable Thiago, Austin Referring Unavailable Thiago, Austin Attending Unavailable Allergies Allergy Classification Reported Allergen(s) Allergy Type Date of Onset Reaction(s) Facility (6 sources) Lisinopril Drug Allergy 2 tongue swelling [facility] (6 sources) Penicillins Allergy to substance 2 Swelling [facility] (1 source) Lisinopril Drug Allergy 5 [facility] (1 source) Penicillins Drug allergy (disorder) 5 [facility] Medications Current Medications Medication Drug Class(es) Dates Sig (Normalized) Sig (Original) amiodarone hydrochloride 200 mg oral tablet (20 sources) Antiarrhythmic Start: 07-16-2020 End: 04-20-2025 Amiodarone 200 mg tablet Active 100 mg PO DAILY 45 April 20, 2025 11:53am Start: 07-16-2020 End: 12-03-2022 take 100 mg by mouth once daily Amiodarone Discontinue d 100 MG PO DAILY 45 August 06, 2021 2:30pm December 03, 2022 11:01am Start: 11-22-2017 End: 07-16-2020 take 0.5 tablet by mouth once daily Amiodarone 200 mg tablet Discontinued 200 mg PO .COMPLEX 90 3 December 12, 2018 11:02am July 16, 2020 3:59pm 200 mg PO 0.5 tablet (100mg) daily Start: 11-07-2013 End: 11-22-2017 Amiodarone 200 MG tablet Discontinued 100 mg PO DAILY November 07, 2013 1:00am November 22, 2017 5:43pm Start: 11-07-2013 End: 11-22-2017 take 100 mg by mouth once daily Amiodarone Discontinue d 100 MG PO DAILY November 07, 2013 12:00am November 22, 2017 4:43pm aspirin 81 mg delayed release oral tablet (6 sources) Platelet Aggregation Inhibitor, Nonsteroidal Anti-inflammatory Drug Start: 11-07-2013 take 1 tablet by mouth once daily Aspirin 81 MG tablet,delayed release (DR/EC) Active 81 mg PO DAILY November 07, 2013 1:00am Handicap Placard (6 sources) Start: 06-19-2019 Handicap Placard Active 1 June 19, 2019 12:00am Atherosclerotic heart disease of [place] coronary artery without angina pectoris Ischemic cardiomyopathy Chronic systolic (congestive) heart failure Good from 06/19/2019-06/19/2024; Start: 06-19-[address] Active June 18, 2019 11:00pm Good from 06/19/2019-06/19/2024; Start: 06-19-[address] Active June 19, 2019 12:00am Good from 06/19/2019-06/19/2024; Handicap Placcard (3 sources) Start: 07-27-2024 Handicap Placc kojo Active 0 .Route .MEDSUPPLY 1 0 July 27, 2024 12:00am Dx: Debility Exp: 07/2029 Start: 07-27-2024 Handicap Placc kojo Active 0 .Route .MEDSUPPLY 1 July 27, 2024 12:00am Dx: Debility Exp: 07/2029 24 hr isosorbide mononitrate 60 mg extended release oral tablet (20 sources) Nitrate Vasodilator Start: 11-22-2017 End: 04-20-2025 take 1 tablet by mouth twice daily, then take 1 tablet by mouth every twenty-four hours Isosorbide Mononitrate 60 mg tablet extended release 24 hr Active 60 mg PO TWICE A DAY 180 April 20, 2025 11:52am swallow whole with glass of water; do not crush/chew /dissolve /cut/break Start: 11-07-2013 End: 11-22-2017 Isosorbide Mononitrate 30 MG tablet extended release 24 hr Discontinued 60 mg PO DAILY November 07, 2013 1:00am November 22, 2017 5:40pm metoprolol tartrate 100 mg oral tablet (20 sources) beta-Adrenergic Margy Start: 04-25-2019 End: 04-20-2025 Metoprolol Tartrate 100 mg tablet Active 50 mg PO TWICE A DAY 90 April 20, 2025 11:34am Start: 04-25-2019 End: 06-03-2023 take 50 mg by mouth twice daily Metoprolol Tartrate Ac tive 50 MG PO TWICE A DAY 90 June 03, 2023 9:02am Start: 11-07-2013 End: 04-25-2019 take 1 tablet by mouth twice daily Metoprolol Tartrate 50 MG tablet Discontinued 50 mg PO TWICE A DAY 180 November 22, 2017 5:41pm December 12, 2018 11:04am Multivitamin With Folic Acid (3 sources) Start: 05-28-2016 take 1 tablet by mouth once daily Multivitamin With Folic Acid Active 1 TABLET PO DAILY May 27, 2016 11:00pm Start: 05-28-2016 take 1 tablet by leon th once daily Multivitamin With Folic Acid Active 1 TABLET PO DAILY May 28, 2016 12:00am Multivitamin With Folic Acid 1 TABLET tablet (3 sources) Start: 05-28-2016 take 1 tablet by mouth once daily Multivitamin With Folic Acid 1 TABLET tablet Active 1 {tbl} PO DAILY May 28, 2016 12:00am Completed/Discontinued Medications Medication Drug Class(es) Dates Sig (Normalized) Sig (Original) atorvastatin 40 mg oral tablet (20 sources) HMG-CoA Reductase Inhibitor Start: 06-19-2019 End: 04-17-2024 take 1 tablet by mouth every other day Atorvastatin (Lipitor) 40 mg tablet Discontinued 40 mg PO every other day 45 July 05, 2023 1:33pm April 17, 2024 1:50pm Start: 01-11-2018 End: 06-19-2019 take 1 tablet by mouth once daily Atorvastatin (Lipitor) 40 mg tablet Discontinued 40 mg PO daily 90 January 10, 2019 4:17pm June 19, 2019 9:46am Start: 11-07-2013 End: 01-11-2018 take 1 tablet by mouth at bedtime Atorvastatin 80 MG tablet Discontinued 80 mg PO AT BEDTIME 90 November 22, 2017 5:39pm January 11, 2018 9:38am clopidogrel 75 mg oral tablet (20 sources) [id number] Platelet Inhibitor Start: 11-07-2013 End: 08-24-2024 take 1 tablet by mouth once daily Clopidogrel 75 mg tablet Discontinued 75 mg PO DAILY 90 July 05, 2023 1:33pm August 24, 2024 1:50pm digoxin 0.125 mg oral tablet (20 sources) Cardiac Glycoside Start: 11-07-2013 End: 06-03-2023 take 1 tablet by mouth once daily Digoxin 125 mcg (0.125 mg) tablet Discontinued 125 ug PO DAILY 90 4 August 06, 2021 3:30pm December 03, 2022 12:01pm furosemide 40 mg oral tablet (20 sources) Loop Diuretic Start: 11-07-2013 End: 04-20-2025 take 1 tablet by mouth once daily Furosemide 40 mg tablet Discontinued 40 mg PO DAILY 90 January 07, 2021 9:56am December 03, 2022 12:02pm hydrALAZINE hydrochloride 100 mg oral tablet (12 sources) Arteriolar Vasodilator Start: 11-07-2013 End: 01-11-2018 take 10 mg by mouth three times daily Hydralazine 100 MG tablet Discontinued 10 mg PO THREE TIMES A DAY 270 3 November 22, 2017 5:40pm January 11, 2018 9:39am Start: 11-07-2013 End: 01-11-2018 take 10 mg by mouth three times daily Hydralazine Discontinued 10 MG PO THREE TIMES A DAY 270 November 22, 2017 4:40pm January 11, 2018 8:39am levothyroxine sodium 0.1 mg oral tablet (20 sources) l-Thyroxine Start: 11-11-2020 End: 12-03-2022 take 1 tablet by mouth once daily Levothyroxine 100 mcg tablet Discontinued 100 ug PO DAILY 30 November 05, 2021 9:34am December 03, 2022 12:02pm Start: 06-13-2020 End: 11-11-2020 take 1 tablet by mouth once daily Levothyroxine 75 mcg tablet Discontinued 75 ug PO DAILY 90 June 13, 2020 9:05am November 11, 2020 4:40pm Start: 01-10-2019 End: 06-13-2020 take 1 tablet by mouth once daily Levothyroxine 50 mcg tablet Discontinued 50 ug PO DAILY 30 January 10, 2019 9:00am June 13, 2020 9:02am Start: 08-16-2017 End: 01-10-2019 take 1 tablet by mouth once daily Levothyroxine 25 MCG tablet Discontinued 25 ug PO DAILY August 16, 2017 1:00am January 10, 2019 8:59am nitroglycerin 0.4 mg sublingual tablet (18 sources) Nitrate Vasodilator Start: 05-28-2016 End: 02-29-2020 Nitroglycerin 0.4 mg tablet, sublingual Discontinued 0.4 mg SL Q5M as needed for Chest Pain 04 11January 10, 2019 9:00am February 29, 2020 10:24am Start: 05-28-2016 End: 02-29-2020 Nitroglycerin Discontinued 0 .4 MG SL Q5M January 10, 2019 8:00am February 29, 2020 9:24am microencapsulated potassium chloride 10 meq extended release oral tablet (18 sources) Start: 11-22-2017 End: 06-03-2023 take 2 tablets by mouth once daily Potassium Chloride 10 mEq tablet,ER particles/crystals Discontinued 20 meq PO DAILY 180 3 December 12, 2018 11:03am June 03, 2023 9:29am Start: 11-22-2017 End: 06-03-2023 take 20 mEq by mouth once daily Potassium Chloride Dis continued 20 MEQ PO DAILY 180 December 12, 2018 10:03am June 03, 2023 8:29am Start: 11-07-2013 End: 11-22-2017 take 2 tablets by mouth once daily Potassium Chloride 10 MEQ tablet,ER particles/crystals Discontinued 20 meq PO DAILY November 07, 2013 1:00am November 22, 2017 5:43pm Start: 11-07-2013 End: 11-22-2017 take 20 mEq by mouth once daily Potassium Chloride Dis continued 20 MEQ PO DAILY November 07, 2013 12:00am November 22, 2017 4:43pm Problems Active Problems Problem Classification Problem Date Documented Date Episodic/Chronic Cardiac dysrhythmias (15 sources) Paroxysmal ventricular tachycardia; Translations: [Ventricular tachycardia] Onset: 5 Chronic Complication of device; implant or graft (6 sources) Arteriosclerosis of coronary artery bypass graft; Translations: [Atherosclerosis of coronary artery bypass graft(s) without angina pectoris] 11-24-2018 Chronic Comment on above: CABG GARCIA graft LAD & saphenous vein graft of OM1 in 2000; Conduction disorders (15 sources) Past history of procedure; Translations: [Presence of automatic (implantable) cardiac defibrillator] Onset: 4 Chronic Comment on above: implant 05/28/[address] Deonte Congestive heart failure; nonhypertensive (17 sources) Congestive heart failure; Translations: [Heart failure, unspecified] Onset: 4 Chronic Coronary atherosclerosis and other heart disease (20 sources) Old myocardial infarction; Translations: [Old myocardial infarction] Onset: 5 Chronic Comment on above: CABG x2- GARCIA to LAD , reverse saphenous vein graft to OM1 09/09/01 Disorders of lipid metabolism (18 sources) Pure hypercholesterolemia; Translations: [Pure hypercholesterolemia, unspecified] Chronic Other aftercare (6 sources) Patient encounter status; Translations: [Other long line teamster (current) drug therapy] 12-27-2019 Episodic Other aftercare (1 source) Drug therapy finding; Translations: [Other long line teamster (current) drug therapy] 06-03-2023 Episodic Other aftercare (2 sources) Other nursing home (current) drug therapy; Translations: [Long-term (current) use of other medications] Onset: 5 12-03-2023 Episodic Other aftercare (6 sources) Long-term current use of amiodarone; Translations: [Other long line teamster (current) drug therapy] 06-03-2023 Episodic Other aftercare (6 sources) Long-term current use of drug therapy; Translations: [Other long line teamster (current) drug therapy] 12-27-2019 Episodic Comment on above: Antihyperlipidemic Other screening for suspected conditions (not mental disorders or infectious disease) (6 sources) Cardiovascular stress test abnormal; Translations: [Abnormal result of other cardiovascular function study] 12-27-2019 Episodic Thyroid disorders (6 sources) Hypothyroidism caused by drug; 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] 01-11-2018 Chronic Past or Other Problems Problem Classification Problem Date Documented Da te Episodic/Chronic Coronary atherosclerosis and other heart disease (16 sources) Stented coronary artery; Translations: [Presence of coronary angioplasty implant and graft] Onset: 10-11-1999 Episodic Comment on above: PTCA with stent to L AD 1999 Results Test Name Value Interpretation Reference Range Facility Comprehensive Metabolic Prof connor 03-27-2025 Albumin [Mass/Vol] 3.7 g/dL Normal 3.4-4.8 [facility] Comment on above: Performed By: #### L 100.0100, L501.5200, L500.4050, L500.4100, L501.9520, L506.0400 #### [facility] [address] [place], [address] Albumin/Globulin [Mass ratio] 1.3 {ratio} Normal 0.9-2.4 [facility] Comment on above: Performed By: #### L 100.0100, L501.5200, L500.4050, L500.4100, L501.9520, L506.0400 #### [facility] [address] [place], [address] ALK PHOS 115 U/L Normal 40-129 [facility] Comment on above: Performed By: #### L 100.0100, L501.5200, L500.4050, L500.4100, L501.9520, L506.0400 #### [facility] [address] [place], [address] ALT [Catalytic activity/Vol] 14 U/L Normal <=46 [facility] Comment on above: Performed By: #### L 100.0100, L501.5200, L500.4050, L500.4100, L501.9520, L506.0400 #### [facility] [address] [place], [address] AST [Catalytic activity/Vol] 20 U/L Normal <=37 [facility] Comment on above: Performed By: #### L 100.0100, L501.5200, L500.4050, L500.4100, L501.9520, L506.0400 #### [facility] [address] [place], [address] Bilirubin [Mass/Vol] 0.62 mg/dL Normal 0.00-1.30 [facility] Comment on above: Performed By: #### L 100.0100, L501.5200, L500.4050, L500.4100, L501.9520, L506.0400 #### [facility] [address] [place], [address] BUN/CRE 11.8 RATIO Normal 10-20 [facility] Comment on above: Performed By: #### L 100.0100, L501.5200, L500.4050, L500.4100, L501.9520, L506.0400 #### [facility] [address] [place], [address] Calcium [Mass/Vol] 9.6 mg/dL Normal 7.6-11.0 [facility] Comment on above: Performed By: #### L 100.0100, L501.5200, L500.4050, L500.4100, L501.9520, L506.0400 #### [facility] [address] [place], [address] Chloride [Moles/Vol] 99 mmol/L Normal 98-108 [facility] Comment on above: Performed By: #### L 100.0100, L501.5200, L500.4050, L500.4100, L501.9520, L506.0400 #### [facility] [address] [place], [address] CO2 [Moles/Vol] 22.9 mmol/L Normal 21.0-32.0 [facility] Comment on above: Performed By: #### L 100.0100, L501.5200, L500.4050, L500.4100, L501.9520, L506.0400 #### [facility] [address] [place], [address] Creatinine [Mass/Vol] 1.32 mg/dL High 0.70-1.20 [facility] Comment on above: Performed By: #### L 100.0100, L501.5200, L500.4050, L500.4100, L501.9520, L506.0400 #### [facility] [address] [place], [address] GAP 13 Normal 5-15 [facility] Comment on above: Performed By: #### L 100.0100, L501.5200, L500.4050, L500.4100, L501.9520, L506.0400 #### [facility] [address] [place], [address] GFR/1.73 sq M.predicted among non-blacks MDRD (S/P/Bld) [Vol rate/Area] 57 mL/min/{1.73_m2} Low >60 [facility] Comment on above: Result Comment: mL/m in/1.73m2 CKD-EPI Creatinine Equation (2020) Performed By: #### L 100.0100, L501.5200, L500.4050, L500.4100, L501.9520, L506.0400 #### [facility] [address] [place], [address] Globulin (S) [Mass/Vol] 2.8 g/dL Normal 2.2-4.2 [facility] Comment on above: Performed By: #### L 100.0100, L501.5200, L500.4050, L500.4100, L501.9520, L506.0400 #### [facility] [address] [place], [address] Glucose [Mass/Vol] 339 mg/dL High 70-99 [facility] Comment on above: Performed By: #### L 100.0100, L501.5200, L500.4050, L500.4100, L501.9520, L506.0400 #### [facility] [address] [place], [address] Potassium [Moles/Vol] 4.5 mmol/L Normal 3.3-5.1 [facility] Comment on above: Performed By: #### L 100.0100, L501.5200, L500.4050, L500.4100, L501.9520, L506.0400 #### [facility] [address] [place], [address] Sodium [Moles/Vol] 135 mmol/L Normal 133-145 [facility] Comment on above: Performed By: #### L 100.0100, L501.5200, L500.4050, L500.4100, L501.9520, L506.0400 #### [facility] [address] [place], [address] T PROT 6.5 g/dL Normal 5.9-8.4 [facility] Comment on above: Performed By: #### L 100.0100, L501.5200, L500.4050, L500.4100, L501.9520, L506.0400 #### [facility] [address] [place], [address] Urea nitrogen [Mass/Vol] 16 mg/dL Normal 4-19 [facility] Comment on above: Performed By: #### L 100.0100, L501.5200, L500.4050, L500.4100, L501.9520, L506.0400 #### [facility] [address] [place], [address] Lipid Profileon 03-27-2025 CHOL:HDL 5.28 Normal [facility] Comment on above: Performed By: #### L 100.0100, L501.5200, L500.4050, L500.4100, L501.9520, L506.0400 #### [facility] [address] [place], [address] Cholesterol [Mass/Vol] 198 mg/dL Normal <=200 [facility] Comment on above: Result Comment: Chol esterol level, Desirable <200 mg/dL Borderline high cholesterol 200-239 mg/dL High cholesterol >=240 mg/dL Recommendations of the NCEP Adult Treatment Panel for the following risk-cutoff thresholds for the [place] population. Performed By: #### L 100.0100, L501.5200, L500.4050, L500.4100, L501.9520, L506.0400 #### [facility] [address] [place], [address] Cholesterol in HDL [Mass/Vol] 38 mg/dL Low [facility] Comment on above: Result Comment: Omayra onal Cholesterol Education Program (NCEP) guidelines: <40 mg/dL: Low HDL-cholesterol (major risk factor for CHD) >= 60 mg/dL: High HDL-cholesterol (negative risk factor for CHD) HDL-cholesterol is affected by a number of factors, e.g. smoking, exercise, hormones, sex and age. Performed By: #### L 100.0100, L501.5200, L500.4050, L500.4100, L501.9520, L506.0400 #### [facility] [address] [place], [address] Cholesterol in LDL [Mass/Vol] 131 mg/dL Normal [facility] Comment on above: Result Comment: Bord oriuwk=565-457 mg/dL Higher Sjur=299 mg/dL or greater Performed By: #### L 100.0100, L501.5200, L500.4050, L500.4100, L501.9520, L506.0400 #### [facility] [address] [place], [address] Cholesterol in VLDL [Mass/Vol] 30 mg/dL Normal 5-40 [facility] Comment on above: Performed By: #### L 100.0100, L501.5200, L500.4050, L500.4100, L501.9520, L506.0400 #### [facility] [address] [place], [address] Triglyceride [Mass/Vol] 150 mg/dL Normal [facility] Comment on above: Result Comment: The drugs N-Acetylcysteine and Metamizole may falsely depress this assay. Normal range: <150 mg/dL Borderline High: 150-199 mg/dL High: 200-499 mg/dL Very High: >500 mg/dL Performed By: #### L 100.0100, L501.5200, L500.4050, L500.4100, L501.9520, L506.0400 #### [facility] [address] [place], [address] T4 Free Directon 03-27-2025 T4 FREE DIRECT 1.70 ng/dL High 0.76-1.46 [facility] Comment on above: Performed By: #### L 100.0100, L501.5200, L500.4050, L500.4100, L501.9520, L506.0400 #### [facility] [address] [facility] [place], [address] Thyroid Stim Hormone (TSH)on 03-27-2025 TSH 6.630 uIU/mL High 0.300-4.200 [facility] Comment on above: Performed By: #### L 100.0100, L501.5200, L500.4050, L500.4100, L501.9520, L506.0400 #### [facility] [address] [place], [place], [address] Absolute lymphocyte countOrd ered By: Elijah Turcios on 03-26-2025 Lymphocytes Auto (Unsp spec) [#/Vol] 1.56 10*3/uL 0.83-4.51 [facility] Absolute neutrophil countOrd ered By: Elijah Turcios on 03-26-2025 Neutrophils (Bld) [#/Vol] 4.7 10*3/uL 2.0-7.7 [facility] Anion gap in Serum or Plasma Ordered By: Elijah Turcios on 03-26-2025 Anion gap [Moles/Vol] 13 mmol/L 5-15 [facility] Automated lymphocyte count a s percentage of total leukocytesOrdered By: Elijah Karolina on 03-26-2025 Lymphocytes/100 WBC Auto (Unsp spec) 21.6 % 19-41 [facility] BUN/creatinine ratioOrdered By: Elijah Turcios on 03-26-2025 Urea nitrogen/Creatinine [Mass ratio] 11.8 mg/mg 10-20 [facility] Basophil percentageOrdered B y: Elijah Turcios on 03-26-2025 Basophils/100 WBC (Bld) 1.0 % 0-1 [facility] Bilirubin, totalOrdered By: Elijah Karolina on 03-26-2025 Bilirubin [Mass/Vol] 0.62 mg/dL 0.00-1.30 [facility] CBC W/Diff, Automatedon 03-11 Absolute Lymph 1.56 X10 3/uL Normal 0.83-4.51 [facility] Comment on above: Performed By: #### L 100.0100, L501.5200, L500.4050, L500.4100, L501.9520, L506.0400 #### [facility] [address] [place], [address] Absolute Neut 4.7 X10 3/uL Normal 2.0-7.7 [facility] Comment on above: Performed By: #### L 100.0100, L501.5200, L500.4050, L500.4100, L501.9520, L506.0400 #### [facility] [address] [place], [address] Basophils/100 WBC (Bld) 1.0 % Normal 0-1 [facility] Comment on above: Performed By: #### L 100.0100, L501.5200, L500.4050, L500.4100, L501.9520, L506.0400 #### [facility] [address] [place], [address] Eosinophils/100 WBC (Bld) 5.1 % High 0-5 [facility] Comment on above: Performed By: #### L 100.0100, L501.5200, L500.4050, L500.4100, L501.9520, L506.0400 #### [facility] [address] [place], [address] Erythrocyte distribution width (RBC) [Ratio] 13.8 % Normal 11.6-14.6 [facility] Comment on above: Performed By: #### L 100.0100, L501.5200, L500.4050, L500.4100, L501.9520, L506.0400 #### [facility] [address] [place], [address] Hematocrit (Bld) [Volume fraction] 40.9 % Normal 40-54 [facility] Comment on above: Performed By: #### L 100.0100, L501.5200, L500.4050, L500.4100, L501.9520, L506.0400 #### [facility] [address] [place], [address] Hemoglobin (Bld) [Mass/Vol] 13.6 g/dL Normal 13.0-16.5 [facility] Comment on above: Performed By: #### L 100.0100, L501.5200, L500.4050, L500.4100, L501.9520, L506.0400 #### [facility] [address] [place], [address] IG% 0.300 Normal 0.0-0.9 [facility] Comment on above: Result Comment: IG% - Immature Granulocytes (promyelocytes, myelocytes and metamyelocytes) > 1% indicates that a LEFT SHIFT is Present. Performed By: #### L 100.0100, L501.5200, L500.4050, L500.4100, L501.9520, L506.0400 #### [facility] [address] [place], [address] Lymphocytes/100 WBC (Bld) 21.6 % Normal 19-41 [facility] Comment on above: Performed By: #### L 100.0100, L501.5200, L500.4050, L500.4100, L501.9520, L506.0400 #### [facility] [address] [place], [address] MCH (RBC) [Entitic mass] 28.8 pg Normal 27.0-32.0 [facility] Comment on above: Performed By: #### L 100.0100, L501.5200, L500.4050, L500.4100, L501.9520, L506.0400 #### [facility] [address] [place], [address] MCHC (RBC) [Mass/Vol] 33.3 g/dL Normal 32-36 [facility] Comment on above: Performed By: #### L 100.0100, L501.5200, L500.4050, L500.4100, L501.9520, L506.0400 #### [facility] [address] [place], [address] MCV (RBC) [Entitic vol] 86.7 fL Normal 80-94 [facility] Comment on above: Performed By: #### L 100.0100, L501.5200, L500.4050, L500.4100, L501.9520, L506.0400 #### [facility] [address] [place], [address] Monocytes/100 WBC (Bld) 7.4 % Normal 0-10 [facility] Comment on above: Performed By: #### L 100.0100, L501.5200, L500.4050, L500.4100, L501.9520, L506.0400 #### [facility] [address] [place], [address] Neutrophils/100 WBC (Bld) 64.6 % Normal 47-70 [facility] Comment on above: Performed By: #### L 100.0100, L501.5200, L500.4050, L500.4100, L501.9520, L506.0400 #### [facility] [address] [place], [address] Nucleated RBC (Bld) [#/Vol] 0 10*3/uL Normal 0-5 [facility] Comment on above: Performed By: #### L 100.0100, L501.5200, L500.4050, L500.4100, L501.9520, L506.0400 #### [facility] [address] [place], [address] Platelet mean volume (Bld) [Entitic vol] 9.9 fL Normal 6.2-12.0 [facility] Comment on above: Performed By: #### L 100.0100, L501.5200, L500.4050, L500.4100, L501.9520, L506.0400 #### [facility] [address] [place], [address] Platelets (Bld) [#/Vol] 196 10*3/uL Normal 150-450 [facility] Comment on above: Performed By: #### L 100.0100, L501.5200, L500.4050, L500.4100, L501.9520, L506.0400 #### [facility] [address] [place], [address] RBC (Bld) [#/Vol] 4.72 10*6/uL Normal 4.6-6.2 [facility] Comment on above: Performed By: #### L 100.0100, L501.5200, L500.4050, L500.4100, L501.9520, L506.0400 #### [facility] [address] [place], [address] RDW SD 42.7 fl Normal 35.1-43.9 [facility] Comment on above: Performed By: #### L 100.0100, L501.5200, L500.4050, L500.4100, L501.9520, L506.0400 #### [facility] [address] [place], [address] WBC (Bld) [#/Vol] 7.2 10*3/uL Normal 4.4-11.0 [facility] Comment on above: Performed By: #### L 100.0100, L501.5200, L500.4050, L500.4100, L501.9520, L506.0400 #### [facility] [address] [place], [address] Calculated very low density lipoprotein (VLDL) cholesterol measurementOrdered By: Elijah Turcios on 03-26-2025 Calculated very low density lipoprotein (VLDL) cholesterol measurement 30 mg/dL 5-40 [facility] Carbon dioxide, total [Moles /volume] in Central venous bloodOrdered By: Elijah Turcios on 03-26-2025 CO2 [Moles/Vol] 22.9 mmol/L 21.0-32.0 [facility] Cardiology Visit Reporton Cardiology Visit Report [facility] [address] [place], [place] [address] OFFICE VISIT Date of Service: 03/26/25 MR#: [id number] Acct: [id number] Name: ALEXSANDRA HAMMER Rep #: [id number] : 1950 Provider: CAILIN ramos Age/Sex: 74/M Location: [facility] Status: Signed HPI HPI History of Present Illness Details: This is a 74-year-old white male who presents today for an outpatient cardiovascular follow-up of his history of CAD, PCI, CABG, ischemic mediated cardiomyopathy, chronic systolic mediated CHF, status post ICD placement, PVT, superimposed upon hyperlipidemia and hypertension. He denies chest, arm, jaw, or neck discomfort. He denies palpitations. He states bilateral lower extremity edema that is unchanged from previous and worse in warmer weather. He denies claudication. He denies shortness of breath with activity, shortness of breath at rest, orthopnea, or PND. He states dry, intermittent cough. He denies significant, sudden weight gain. He denies lightheadedness, dizziness, near-syncope, or syncope. He denies blood in urine, blood in stool, or epistaxis. He denies fever with chills. He denies myalgia. He continues with fatigue. His exercise level has remained stable. Intake Vital Signs 07/27/24 10:06 03/26/25 10:37 Height 5 ft 4 in 5 ft 4 in Weight: 166 lb BMI 28.5 BP 112/72 Blood Pressure Location Lt brachial Position Sitting Respiration 20 H Pulse 84 Pulse Source NIBP Intake Visit Reasons: 8 M FU Social Services Assistant Required: No Is patient in pain?: No Allergies lisinopril (From Prinivil) Allergy (Verified 03/26/25 10:41) tongue swelling Penicillins Allergy (Verified 03/26/25 10:41) Swelling Medications ???Medication ???Instructions ???Recorded ???Confirmed ???Type aspirin 81 mg tablet,delayed 81 mg PO DAILY 11/07/13 03/26/25 H istory release multivitamin with folic acid 400 1 tab PO DAILY 05/28/16 03/26/25 H istory mcg tablet Handicap Placard #1 ea 06/19/19 12/03/23 Rx nitroglycerin 0.4 mg sublingual 0.4 mg sublingual Q5M PRN Chest 03/26/25 Rx tablet Pain #25 tabs furosemide 40 mg tablet 40 mg PO DAILY #90 tabs 12/03/22 0 03/26/25 Rx levothyroxine 100 mcg tablet 100 mcg PO DAILY #90 tabs 12/03/22 03/26/25 Rx amiodarone 200 mg tablet 100 mg (1/2 x 200 mg) PO DAILY #45 04/17/24 03/26/25 Rx tabs atorvastatin 40 mg tablet (Lipitor) 40 mg PO Q OTHER DAY #45 tabs 0 04/17/24 03/26/25 Rx Handicap Placcard #1 ea 07/27/24 07/27/24 Rx clopidogrel 75 mg tablet 75 mg PO DAILY #90 tabs 08/24/24 0 03/26/25 Rx isosorbide mononitrate 60 mg 60 mg PO BID #180 tabs 01/03/25 Rx tablet,extended release 24 hr metoprolol tartrate 100 mg tablet 50 mg (1/2 x 100 mg) PO BID #90 0 02/08/25 03/26/25 Rx tabs Ejection fraction %: 35 Have you fallen in the past year?: No PFSH Medical History Presence of stent in coronary artery ( 05/2000) Chronic systolic (congestive) heart failure Pure hypercholesterolemia Atherosclerotic heart disease of [place] coronary artery without angina pectoris Edema Chest pain Dyspnea on exertion Congestive heart failure Atherosclerosis of coronary artery bypass graft without angina pectoris Hyperlipidemia Old myocardial infarction Ischemic cardiomyopathy Paroxysmal ventricular tachycardia Encounter for long-term current use of high risk medication Hypothyroidism due to drugs Abnormal stress test Surgical History Presence of coronary angioplasty implant and graft ( 05/2000) History of coronary artery bypass surgery ( 09/09/01) Hx of CABG ( 09/09/01) History of implantable cardiac defibrillator (ICD) Postsurgical percutaneous transluminal coronary angioplasty (PTCA) status ( 05/2000) Family History Father CAD (coronary artery disease) Myocardial infarction Hypertension Mother Bleeding disorder Sister Breast cancer Social History Smoking Status: Never smoker alcohol intake: never substance use type: does not use caffeine: Yes Type: carbonated beverages and tea what type of physical activity do you participate in: none seatbelt use: always do you feel safe at home: Yes ROS Const Const: Positive for fatigue (Unchanged from previous); Negative for weakness Eyes Eyes: Negative for change in vision ENT ENT: Negative for dizziness or balance problems Cardio Chest Pain: No Palpitations: No Edema: Bilateral (Unchanged-worse in warm weather) Muscle aches with walking: None Resp Respiratory: Positive for Cough (Dry cough intermittently); Negative for SOB with activity, SOB at rest or SOB orthopn (more content not included)... Normal [facility] Chloride assayOrdered By: Migdalia Turcios on 03-26-2025 Chloride [Moles/Vol] 99 mmol/L 98-108 [facility] Eosinophil percentageOrdered By: Elijah Turcios on 03-26-2025 Eosinophils/100 WBC (Bld) 5.1 % High 0-5 [facility] Erythrocyte distribution wid th ratioOrdered By: Elijah Turcios on 03-26-2025 Erythrocyte distribution width (RBC) [Ratio] 13.8 % 11.6-14.6 [facility] Erythrocyte distribution wid th standard deviationOrdered By: Elijah Turcios on 03-26-2025 Erythrocyte distribution width (RBC) [Ratio] 42.7 fl 35.1-43.9 [facility] Glomerular filtration rate ( GFR) estimation/1.73 sq m using serum, plasma, or whole bOrdered By: Elijah Turcios on 03-26-2025 GFR/1.73 sq M.predicted among non-blacks MDRD (S/P/Bld) [Vol rate/Area] 57 mL/min/{1.73_m2} Low >60 [facility] Comment on above: mL/min/1.73m2 CKD-EP I Creatinine Equation (2020) Hematocrit Auto (Bld) [Volum e fraction]Ordered By: Elijah Turcios on 03-26-2025 Hematocrit (Bld) [Volume fraction] 40.9 % 40-54 [facility] Hemoglobin measurementOrdere d By: Elijah Turcios on 03-26-2025 Hemoglobin (Bld) [Mass/Vol] 13.6 g/dL 13.0-16.5 [facility] Immature granulocytes/100 WB C Auto (Bld)Ordered By: Elijah Turcios on 03-26-2025 Immature granulocytes/100 WBC (Bld) 0.300 % 0.0-0.9 [facility] Comment on above: IG% - Immature Granu locytes (promyelocytes, myelocytes and metamyelocytes) > 1% indicates that a LEFT SHIFT is Present. LDL calc ser/plasOrdered By: Elijah Turcios on 03-26-2025 Cholesterol in LDL [Mass/Vol] 131 mg/dL [facility] Comment on above: Yotrwevwxl=367-297 m g/dL & Higher Dqtt=905 mg/dL or greater Laboratory - Chemistry and C hemistry - challengeOrdered By: Elijah Turcios on 03-26-2025 AST [Catalytic activity/Vol] 20 U/L <38 [facility] MCV (mean corpuscular volume ) determinationOrdered By: Elijah Turcios on 03-26-2025 MCV (RBC) [Entitic vol] 86.7 fL 80-94 [facility] Magnesiumon 03-26-2025 Magnesium [Mass/Vol] 1.8 mg/dL Normal 1.5-2.2 [facility] Comment on above: Performed By: #### L 100.0100, L501.5200, L500.4050, L500.4100, L501.9520, L506.0400 #### [facility] [address] [place], [place], [id number] Magnesium measurement (mass/ volume)Ordered By: Elijah Turcios on 03-26-2025 Magnesium (Unsp spec) [Mass/Vol] 1.8 mg/dL 1.5-2.2 [facility] Mean corpuscular hemoglobin (MCH) determinationOrdered By: Elijah Turcios on 03-26-2025 MCH (RBC) [Entitic mass] 28.8 pg 27.0-32.0 [facility] Mean corpuscular hemoglobin concentration (MCHC) determinationOrdered By: Elijah Turcios on 03-26-2025 MCHC (RBC) [Mass/Vol] 33.3 g/dL 32-36 [facility] Mean platelet volume determi nationOrdered By: Elijah Turcios on 03-26-2025 Platelet mean volume (Bld) [Entitic vol] 9.9 fL 6.2-12.0 [facility] Monocyte percentageOrdered B y: Elijah Turcios on 03-26-2025 Monocytes/100 WBC (Bld) 7.4 % 0-10 [facility] Neutrophil percentageOrdered By: Elijah Turcios on 03-26-2025 Neutrophils/100 WBC (Bld) 64.6 % 47-70 [facility] Nucleated red blood cell per centageOrdered By: Elijah Turcios on 03-26-2025 Nucleated RBC/100 WBC (Bld) [Ratio] 0 % 0-5 [facility] Platelet countOrdered By: Migdalia Turcios on 03-26-2025 Platelets (Bld) [#/Vol] 196 10*3/uL 150-450 [facility] Potassium measurement (mass/ volume)Ordered By: Elijah Turcios on 03-26-2025 Potassium (Unsp spec) [Mass/Vol] 4.5 mmol/L 3.3-5.1 [facility] RBC Auto (Bld) [#/Vol]Ordere d By: Elijah Turcios on 03-26-2025 RBC (Bld) [#/Vol] 4.72 10*6/uL 4.6-6.2 [facility] Screening total cholesterol/ high density lipoprotein (HDL) cholesterol ratioOrdered By: Elijah Turcios on 03-26-2025 Cholesterol.total/Tamara sterol in HDL [Mass ratio] 5.28 {ratio} [facility] Serum creatinine measurement (mass/volume)Ordered By: Elijah Turcios on 03-26-2025 Creatinine [Mass/Vol] 1.32 mg/dL High 0.70-1.20 [facility] Serum globulin measurementOr dered By: Elijah Turcios on 03-26-2025 Globulin (S) [Mass/Vol] 2.8 g/dL 2.2-4.2 [facility] Serum glucose measurement (m ass/volume)Ordered By: Elijah Turcios on 03-26-2025 Glucose [Mass/Vol] 339 mg/dL High 70-99 [facility] Serum or plasma alanine romero otransferase (ALT) measurementOrdered By: Elijah Turcios on 03-26-2025 ALT [Catalytic activity/Vol] 14 U/L <47 [facility] Serum or plasma albumin heavenly urement (mass/volume)Ordered By: Elijah Turcios on 03-26-2025 Albumin [Mass/Vol] 3.7 g/dL 3.4-4.8 [facility] Serum or plasma albumin/glob ulin mass ratioOrdered By: Elijah Turcios on 03-26-2025 Albumin/Globulin [Mass ratio] 1.3 {ratio} 0.9-2.4 [facility] Serum or plasma alkaline chapis sphatase measurementOrdered By: Elijah Turcios on 03-26-2025 ALP [Catalytic activity/Vol] 115 U/L 40-129 [facility] Serum or plasma calcium heavenly urement (mass/volume)Ordered By: Elijah Turcios on 03-26-2025 Calcium [Mass/Vol] 9.6 mg/dL 7.6-11.0 [facility] Serum or plasma cholesterol in HDL measurement (mass/volume)Ordered By: Elijah Turcios on 03-26-2025 Cholesterol in HDL [Mass/Vol] 38 mg/dL Low >40 [facility] Comment on above: National Cholesterol Education Program (NCEP) guidelines:<40 mg/dL: Low HDL-cholesterol (major risk factor for CHD)>= 60 mg/dL: High HDL-cholesterol (negative risk factor for CHD)HDL-cholesterol is affected by a number of factors, e.g. smoking, exercise, hormones, sex and age. Serum or plasma cholesterol measurement (mass/volume)Ordered By: Elijah Turcios on 03-26-2025 Cholesterol [Mass/Vol] 198 mg/dL <201 [facility] Comment on above: Cholesterol level, D esirable <200 mg/dLBorderline high cholesterol 200-239 mg/dLHigh cholesterol >=240 mg/dLRecommendations of the NCEP Adult Treatment Panel for the following risk-cutoff thresholds for the [place] population. Serum or plasma urea nitroge n measurement (mass/volume)Ordered By: Elijah Turcios on 03-26-2025 Urea nitrogen [Mass/Vol] 16 mg/dL 4-19 [facility] Sodium levelOrdered By: Elijah Turcios on 03-26-2025 Sodium [Moles/Vol] 135 mmol/L 133-145 [facility] T4 freeOrdered By: Elijah Turcios on 03-26-2025 Free T4 [Mass/Vol] 1.70 ng/dL High 0.76-1.46 [facility] TSH DL <= 0.005 mIU/L QnOrde red By: Elijah Turcios on 03-26-2025 TSH Qn 6.630 uIU/mL High 0.300-4.200 [facility] Total proteinOrdered By: Earle Turcios on 03-26-2025 Protein [Mass/Vol] 6.5 g/dL 5.9-8.4 [facility] Triglycerides measurementOrd ered By: Elijah Turcios on 03-26-2025 Triglyceride [Mass/Vol] 150 mg/dL <199 [facility] Comment on above: The drugs N-Acetylcy steine and Metamizole may falsely depress this assay. Normal range: <150 mg/dLBorderline High: 150-199 mg/dLHigh: 200-499 mg/dLVery High: >500 mg/dL White blood cell (WBC) count Ordered By: Elijah Turcios on 03-26-2025 WBC (Bld) [#/Vol] 7.2 10*3/uL 4.4-11.0 [facility] 12 Lead EKG performed by [facility] on 07-27-2024 12 Lead EKG performed by [facility] [address] [place] [address] 12 Lead EKG performed by [facility] 07/27/24 0950 MR#: [id number] Acct: [id number] Name: ALEXSANDRA HAMMER Rep #: [id number] : 1950 73 From: Mata Das MD Attending Dr: Dr. Mata Das MD Status: DEP A MB Ordering Dr: Mata Das MD Date: 07/27/24 Location: [facility] Sex: M C Admitted: [facility]/12 Lead EKG performed by [facility] ECG Report Interpretation ---Sinus Rhythm -Intraventricular conduction defect and left axis -possible anterior fascicular block consider ventricular hypertrophy. - Diffuse nonspecific T-abnormality. 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 [place] [address] OFFICE VISIT Date of Service: 07/27/24 MR#: [id number] Acct: [id number] Name: ALEXSANDRA HAMMER Rep #: [id number] : 1950 Provider: Dr. Mata Das MD Age/Sex: 73/M Location: [facility] Status: Signed [facility] History of Present Illness Details: This is a 73-year-old white male who presents today for an outpatient cardiovascular follow-up of his history of CAD, PCI, CABG, ischemic mediated cardiomyopathy, chronic systolic mediated CHF, status post ICD placement, PVT, superimposed upon hyperlipidemia and hypertension. He denies chest, arm, jaw, or neck discomfort. He denies palpitations. He denies bilateral lower extremity edema, but states right lower extremity edema that is not new. He denies claudication. He denies shortness of breath with activity, shortness of breath at rest, orthopnea, or PND. He denies chronic cough. He denies significant, sudden weight gain. He denies lightheadedness, dizziness, near-syncope, or syncope. He denies blood in urine, blood in stool, or epistaxis. He denies fever with chills. He denies myalgia. He denies fatigue. His exercise level has remained stable. He states his blood pressure is typically elevated in an office setting due to longer walk getting to office. Intake Vital Signs 06/03/23 09:22 12/03/23 08:46 07/27/24 10:06 Height 5 ft 4 in 5 ft 4 in 5 ft 4 in Weight: 162 lb BMI 27.8 BP 130/77 H Blood Pressure Location Lt brachial Position Sitting Respiration 16 Pulse 75 Pulse Source Monitor Pulse Oximetry (%) 95 Oxygen Delivery Method room air Intake Visit Reasons: 1 Y FU ICD f/u @ 10AM Accompanied by: Self Is patient in pain?: No Allergies lisinopril (From Prinivil) Allergy (Verified 07/27/24 10:02) tongue swelling Penicillins Allergy (Verified 07/27/24 10:02) Swelling Medications ???Medication ???Instructions ???Recorded ???Confirmed ???Type aspirin 81 mg tablet,delayed 81 mg PO DAILY 11/07/13 07/27/24 History release multivitamin with folic acid 400 1 tab PO DAILY 05/28/16 07/27/24 History mcg tablet Handicap Placard #1 ea 06/19/19 12/03/23 Rx nitroglycerin 0.4 mg sublingual 0.4 mg sublingual Q5M PRN Chest 02/29/20 07/27/24 Rx tablet Pain #25 tabs furosemide 40 mg tablet 40 mg PO DAILY #90 tabs 12/03/22 07/27/24 Rx levothyroxine 100 mcg tablet 100 mcg PO DAILY #90 tabs 12/03/22 07/27/24 Rx isosorbide mononitrate 60 mg 60 mg PO BID #180 tabs 06/03/23 07/27/24 Rx tablet,extended release 24 hr metoprolol tartrate 100 mg tablet 50 mg (1/2 x 100 mg) PO BID #90 06/03/23 07/27/24 Rx tabs clopidogrel 75 mg tablet 75 mg PO DAILY #90 tabs 07/05/23 07/27/24 Rx amiodarone 200 mg tablet 100 mg (1/2 x 200 mg) PO DAILY #45 04/17/24 07/27/24 Rx tabs atorvastatin 40 mg tablet (Lipitor) 40 mg PO Q OTHER DAY #45 tabs 04/17/24 07/27/24 Rx Handicap Placcard #1 ea 07/27/24 07/27/24 Rx Ejection fraction %: 35 Have you fallen in the past year?: No PFSH Medical History Presence of stent in coronary artery ( 05/2000) Chronic systolic (congestive) heart failure Pure hypercholesterolemia Atherosclerotic heart disease of [place] coronary artery without angina pectoris Edema Chest pain Dyspnea on exertion Congestive heart failure Atherosclerosis of coronary artery bypass graft without angina pectoris Hyperlipidemia Old myocardial infarction Ischemic cardiomyopathy Paroxysmal ventricular tachycardia Encounter for long-term current use of high risk medication Hypothyroidism due to drugs Abnormal stress test Surgical History Presence of coronary angioplasty implant and graft ( 05/2000) History of coronary artery bypass surgery ( 09/09/01) Hx of CABG ( 09/09/01) History of implantable cardiac defibrillator (ICD) Postsurgical percutaneous transluminal coronary angioplasty (PTCA) status ( 05/2000) Family History Father CAD (coronary artery disease) Myocardial infarction Hypertension Mother Bleeding disorder Sister Breast cancer Social History Smoking Status: Never smoker alcohol intake: never substance use type: does not use caffeine: Yes Type: carbonated beverages and tea what type of physical activity do you participate in: none seatbelt use: always do you feel safe at home: Yes ROS Const Const: Positive for weight gain; Negative for fatigue, weakness, fever(s), headache(s), chills, frequent falls, night sweats, difficulty sleeping, excessive sweating or weight loss Eyes Eyes: Negative for loss of peripheral visi (more content not included)... Normal [facility] Pacemaker Checkon 07-27-2024 Pacemaker Check [facility] [address] [place] [address]. [address] [place] [address] Pacemaker Check Date of Service: 07/27/24 1603 MR#: [id number] Acct: [id number] Name: ALEXSANDRA HAMMER Rep #: [id number] : 1950 From: Valentina Catalan Age/Sex: 73/M Location: [facility] Status: Signed Billing Codes ICD Device Billin ICD Dev Prog Eval, Dual Assessment and Plan Assessment and Plan (1) Ischemic cardiomyopathy: Status: Chronic (2) Chronic systolic (congestive) heart failure: Status: Chronic (3) Paroxysmal ventricular tachycardia: Status: Chronic (4) History of implantable cardiac defibrillator (ICD): Status: Chronic Comment: implant 05/28/[address] Clemons 07/27/24 1604 Date Valentina Osullivan Signature: Date (if applicable) CC: Normal [facility] Absolute lymphocyte countOrd ered By: Elijah Turcios on 12-03-2023 Lymphocytes Auto (Unsp spec) [#/Vol] 2.89 10*3/uL 0.83-4.51 [facility] Automated lymphocyte count a s percentage of total leukocytesOrdered By: Elijah Turcios on 12-03-2023 Lymphocytes/100 WBC Auto (Unsp spec) 30.5 % 19-41 [facility] Basophil percentageOrdered B y: Elijah Turcios on 12-03-2023 Basophils/100 WBC (Bld) 0.7 % 0-1 [facility] Bilirubin [Mass/Vol] 0.80 mg/dL 0.20-1.00 [facility] Comment on above: For patients on eltr ombopag therapy, use of Dimension [place] TBIL is not recommended. Chloride [Moles/Vol] 101 mmol/L 98-107 [facility] Cholesterol [Mass/Vol] 189 mg/dL <200 [facility] Comment on above: <200 mg/dL Desirable 200-240 mg/dL Borderline >240 mg/dL High Risk Eosinophils/100 WBC (Bld) 3.9 % 0-5 [facility] Glucose [Mass/Vol] 317 mg/dL 74-106 [facility] Comment on above: Glucose result great er than or equal to 200 mg/dLsuggests DIABETES MELLITUS per A.D.A. criteria. Hemoglobin (Bld) [Mass/Vol] 15.1 g/dL 13.0-16.5 [facility] Monocytes/100 WBC (Bld) 8.5 % 0-10 [facility] Neutrophils (Bld) [#/Vol] 5.3 10*3/uL 2.0-7.7 [facility] Neutrophils/100 WBC (Bld) 55.8 % 47-70 [facility] Potassium [Moles/Vol] 4.3 mmol/L 3.5-5.1 [facility] Protein [Mass/Vol] 7.5 g/dL 6.4-8.2 [facility] Sodium [Moles/Vol] 137 mmol/L 136-145 [facility] Triglyceride [Mass/Vol] 140 mg/dL <199 [facility] Comment on above: The drugs N-Acetylcy steine and Metamizole may falsely depress this assay.Serum Triglycerides Reference Interval Normal <150 mg/dL Borderline high 150 - 199 mg/dL High 200 - 499 mg/dL Very High > or = 500 mg/dL WBC (Bld) [#/Vol] 9.5 10*3/uL 4.4-11.0 [facility] Determination of erythrocyte mean corpuscular volume (MCV)Ordered By: Elijah Turcios on 12-03-2023 MCV (RBC) [Entitic vol] 83.2 fL 80-94 [facility] Erythrocyte distribution wid th ratioOrdered By: Elijah Turcios on 12-03-2023 Erythrocyte distribution width (RBC) [Ratio] 12.6 % 11.6-14.6 [facility] Erythrocyte distribution wid th standard deviationOrdered By: Elijah Turcios on 12-03-2023 Erythrocyte distribution width (RBC) [Entitic vol] 38.0 fL 35.1-43.9 [facility] Hematocrit Auto (Bld) [Volum e fraction]Ordered By: Elijah Turcios on 12-03-2023 Hematocrit (Bld) [Volume fraction] 44.0 % 40-54 [facility] Immature granulocytes/100 WB C Auto (Bld)Ordered By: Elijah Turcios on 12-03-2023 Immature granulocytes/100 WBC (Bld) 0.600 % 0.0-0.9 [facility] Comment on above: IG% - Immature Granu locytes (promyelocytes, myelocytes and metamyelocytes) > 1% indicates that a LEFT SHIFT is Present. Laboratory - Chemistry and C hemistry - challengeOrdered By: Elijah Turcios on 12-03-2023 Albumin/Globulin [Mass ratio] 1.0 {ratio} 0.9-2.4 [facility] ALP [Catalytic activity/Vol] 117 U/L 45-117 [facility] ALT [Catalytic activity/Vol] 18 U/L 16-61 [facility] Cholesterol in HDL [Mass/Vol] 44 mg/dL >40 [facility] Comment on above: The drugs N-Acetylcy steine and Metamizole may falsely depress this assay. Reference Range HDL <40 mg/dL Low HDL Cholesterol HDL >or= 60 mg/dL High HDL Cholesterol Cholesterol in LDL [Mass/Vol] 117 mg/dL 0-130 [facility] CO2 [Moles/Vol] 28.0 mmol/L 21.0-32.0 [facility] Globulin (S) [Mass/Vol] 3.8 g/dL 2.2-4.2 [facility] Magnesium [Mass/Vol] 1.9 mg/dL 1.6-2.6 [facility] Urea nitrogen/Creatinine [Mass ratio] 17.7 mg/mg 10-20 [facility] Laboratory - Hematology and Cell countsOrdered By: Elijah Turcios on 12-03-2023 MCH (RBC) [Entitic mass] 28.5 pg 27.0-32.0 [facility] MCHC (RBC) [Mass/Vol] 34.3 g/dL 32-36 [facility] Nucleated RBC/100 WBC (Bld) [Ratio] 0 % 0-5 [facility] Platelet mean volume (Bld) [Entitic vol] 9.8 fL 6.2-12.0 [facility] Platelets (Bld) [#/Vol] 208 10*3/uL 150-450 [facility] No Panel InformationOrdered By: Elijah Turcios on 12-03-2023 Estimated GFR (MDRD) Amer 82 mL/min >60 [facility] Comment on above: GFR Calc Estimated GFR (MDRD) Non-Af Amer 68 mL/min >60 [facility] Comment on above: Non- GFR Calc VLDL Cholesterol 28 mg/dL 5-40 [facility] RBC Auto (Bld) [#/Vol]Ordere d By: Elijah Turcios on 12-03-2023 RBC (Bld) [#/Vol] 5.29 10*6/uL 4.6-6.2 [facility] Serum or plasma calcium heavenly urement (mass/volume)Ordered By: Elijah Turcios on 12-03-2023 Calcium [Mass/Vol] 9.5 mg/dL 8.5-10.1 [facility] Serum or plasma creatinine m easurement (mass/volume)Ordered By: Elijah Turcios on 12-03-2023 Creatinine [Mass/Vol] 1.13 mg/dL 0.70-1.30 [facility] Comment on above: The validity of the calculated GFR & GFRAA in patients over 70 years has not been determined. Clinical correlation is essential. Serum or plasma thyroid stim ulating hormone (TSH) measurement (units/volume)Ordered By: Elijah Turcios on 12-03-2023 TSH Qn 5.99 uIU/mL 0.358-3.74 [facility] Serum or plasma urea nitroge n measurement (mass/volume)Ordered By: Elijah Turcios on 12-03-2023 Urea nitrogen [Mass/Vol] 20 mg/dL 7-18 [facility] Thin prep Papanicolaou smear with manual screeningOrdered By: Elijah Turcios on 12-03-2023 Thin prep Papanicolaou smear with manual screening 3.7 g/dL 3.2-5.0 [facility] Thin prep Papanicolaou smear with manual screening 15 U/L 15-37 [facility] Thin prep Papanicolaou smear with manual screening 8 5-15 [facility] Thin prep Papanicolaou smear with manual screening 1.56 ng/dL 0.76-1.46 [facility] Basophil percentageOrdered B y: Dr. Sandoval on 12-03-2022 Bilirubin [Mass/Vol] 0.90 mg/dL 0.20-1.00 [facility] Comment on above: For patients on eltr ombopag therapy, use of Dimension [place] TBIL is not recommended. Cholesterol [Mass/Vol] 185 mg/dL <200 [facility] Comment on above: <200 mg/dL Desirable 200-240 mg/dL Borderline >240 mg/dL High Risk Protein [Mass/Vol] 7.5 g/dL 6.4-8.2 [facility] Triglyceride [Mass/Vol] 199 mg/dL <199 [facility] Comment on above: The drugs N-Acetylcy steine and Metamizole may falsely depress this assay.Serum Triglycerides Reference Interval Normal <150 mg/dL Borderline high 150 - 199 mg/dL High 200 - 499 mg/dL Very High > or = 500 mg/dL Direct bilirubinOrdered By: Dr. Sandoval on 12-03-2022 Bilirubin.direct [Mass/Vol] 0.22 mg/dL 0.00-0.30 [facility] Laboratory - Chemistry and C hemistry - challengeOrdered By: Dr. Sandoval on 12-03-2022 ALP [Catalytic activity/Vol] 117 U/L 45-117 [facility] ALT [Catalytic activity/Vol] 26 U/L 16-61 [facility] Globulin (S) [Mass/Vol] 3.8 g/dL 2.2-4.2 [facility] T4 [Mass/Vol] 15.0 ug/dL 4.5-12.1 [facility] No Panel InformationOrdered By: Dr. Sandoval on 12-03-2022 Thyroid Stimulating Hormone (TSH) 3.36 uIU/mL 0.358-3.74 [facility] Serum or plasma albumin heavenly urement (mass/volume)Ordered By: Dr. Sandoval on 12-03-2022 Albumin [Mass/Vol] 3.7 g/dL 3.2-5.0 [facility] Serum or plasma cholesterol in HDL measurement (mass/volume)Ordered By: Dr. Sandoval on 12-03-2022 Cholesterol in HDL [Mass/Vol] 45 mg/dL >40 [facility] Comment on above: The drugs N-Acetylcy steine and Metamizole may falsely depress this assay. Reference Range HDL <40 mg/dL Low HDL Cholesterol HDL >or= 60 mg/dL High HDL Cholesterol Serum or plasma cholesterol in VLDL measurement (mass/volume)Ordered By: Dr. Sandoval on 12-03-2022 Cholesterol in VLDL [Mass/Vol] 40 mg/dL 5-40 [facility] Serum or plasma low density lipoprotein (LDL) cholesterol measurement (mass/volume)Ordered By: Dr. Sandoval on 12-03-2022 Cholesterol in LDL [Mass/Vol] 100 mg/dL 0-130 [facility] Thin prep Papanicolaou smear with manual screeningOrdered By: Dr. Sandoval on 12-03-2022 Thin prep Papanicolaou smear with manual screening 18 U/L 15-37 [facility] Vital Signs Date Time Vital Sign Value Performing Clinician Jose C warren 03-26-2025 10:37-0400 Body height 162.56 cm No Primary Care Physician [facility] 03-26-2025 10:37-0400 Body mass index (BMI) [Ratio] 28.5 kg/m2 No Primary Care Physician [facility] 03-26-2025 10:37-0400 Body weight 75.29 kg No Primary Care Physician [facility] 03-26-2025 10:37-0400 Diastolic blood pressure 72 mm[Hg] No Primary Care Physician [facility] 03-26-2025 10:37-0400 Heart rate 84 /min No Primary Care Physician [facility] 03-26-2025 10:37-0400 Respiratory rate 20 /min No Primary Care Physician [facility] 03-26-2025 10:37-0400 Systolic blood pressure 112 mm[Hg] No Primary Care Physician [facility] 12-03-2023 08:46-0500 Body height 162.[address] Mata Das Work Phone: [facility] 12-03-2023 08:46-0500 Body mass index (BMI) [Ratio] 27.3 kg/m2 Dr. Mata Das Work Phone: [facility] 12-03-2023 08:46-0500 Body weight 72.[address] Mata Das Work Phone: [facility] 12-03-2023 08:46-0500 Diastolic blood pressure 85 mm[Hg] Dr. Mata Das Work Phone: [facility] 12-03-2023 08:46-0500 Heart rate 69 /min Dr. Mata Das Work Phone: [facility] 12-03-2023 08:46-0500 Respiratory rate 18 /min Dr. Mata Das Work Phone: [facility] 12-03-2023 08:46-0500 Systolic blood pressure 142 mm[Hg] Dr. Mata Das Work Phone: [facility] 12-03-2022 10:58-0500 Body height 162.[address] Balta Sandoval Work Phone: [facility] 12-03-2022 10:58-0500 Body mass index (BMI) [Ratio] 26.3 kg/m2 Dr. Balta Sandoval Work Phone: [facility] 12-03-2022 10:58-0500 Body weight 69.[address] Balta Sandoval Work Phone: [facility] 12-03-2022 10:58-0500 Diastolic blood pressure 64 mm[Hg] Dr. Balta Sandoval Work Phone: [facility] 12-03-2022 10:58-0500 Heart rate 80 /min Dr. Balta Sandoval Work Phone: [facility] 12-03-2022 10:58-0500 Respiratory rate 16 /min Dr. Balta Sandoval Work Phone: [facility] 12-03-2022 10:58-0500 Systolic blood pressure 120 mm[Hg] Dr. Balta Sandoval Work Phone: [facility] 04-29-2022 08:56-0400 Body height 162.[address] Balta Sandoval Work Phone: [facility] Work Phone: 04-29-2022 08:53-0400 Body mass index (BMI) [Ratio] 26.2 kg/m2 Dr. Balta Sandoval Work Phone: [facility] Work Phone: 04-29-2022 08:53-0400 Body temperature 97.6 [degF] Dr. Balta Sandoval Work Phone: [facility] Work Phone: 04-29-2022 08:53-0400 Body weight 69.[address] Balta Sandoval Work Phone: [facility] Work Phone: 04-29-2022 08:53-0400 Diastolic blood pressure 80 mm[Hg] Dr. Balta Sandoval Work Phone: [facility] Work Phone: 04-29-2022 08:53-0400 Heart rate 66 /min Dr. Balta Sandoval Work Phone: [facility] Work Phone: 04-29-2022 08:53-0400 Respiratory rate 20 /min Dr. Balta Sandoval Work Phone: [facility] Work Phone: 04-29-2022 08:53-0400 SaO2% (BldA) [Mass fraction] 96 % Dr. Balta Sandoval Work Phone: [facility] Work Phone: 04-29-2022 08:53-0400 Systolic blood pressure 149 mm[Hg] Dr. Balta Sandoval Work Phone: [facility] Work Phone: Encounters Encounter Date Encounter Type Care Provider Facility Start: 04-16-2025 End: 04-16-2025 ambulatory No Primary Care Physician -[facility] Start: 04-16-2025 End: 04-16-[address] Mata Das MD -[facility] Work Phone: Start: 03-26-2025 End: 03-26-2025 Patient encounter procedure Elijah Turcios CARBONATION EQUIPMENT OPERATOR-C -[facility] Work Phone: Start: 03-26-2025 End: 03-26-2025 ambulatory No Primary Care Physician [facility] Work Phone: Start: 03-26-2025 End: 03-26-2025 ambulatory Elijah Turcios NP Facility:[facility] Start: 01-15-2025 End: 01-15-2025 ambulatory Mata Das Facility:[facility] Start: 01-15-2025 End: 01-15-[address] Mata Das MD -[facility] Work Phone: Start: 10-16-2024 End: 10-16-2024 ambulatory Mata Das Facility:[facility] Start: 07-28-2024 End: 07-28-2024 ambulatory No Primary Care Physician Facility:[facility] Start: 07-27-2024 End: 07-27-2024 ambulatory No Primary Care Physician Facility:[facility] Start: 07-10-2024 End: 07-10-2024 ambulatory Austinusman Das Facility:[facility] Start: 06-19-2024 End: 06-19-2024 ambulatory Mata Das Facility:[facility] Start: 06-12-2024 End: 06-12-2024 ambulatory Mata Das Facility:[facility] Start: 12-03-2023 End: 12-03-[address] Mata Das Work Phone: [facility] Work Phone: Start: 12-03-2023 End: 12-03-[address] Mata Das Work Phone: [facility] Work Phone: Start: 11-10-2023 End: 11-10-[address] Mata Das Work Phone: [facility] Work Phone: Start: 12-03-2022 End: 12-03-[address] Balta Sandoval Work Phone: [facility] Work Phone: Start: 12-03-2022 End: 12-03-[address] Balta Sandoval Work Phone: [facility] Start: 11-18-2022 Non-patient / Non-visit Dr. Jairo Sandoval Work Phone: [facility] Start: 09-17-2022 End: 09-17-[address] Balta Sandoval Work Phone: [facility] Start: 09-16-2022 End: 09-17-2022 Non-patient / Non-visit [facility] Bal[facility] Start: 06-01-2022 Non-patient / Non-visit Dr. Jairo Sandoval Work Phone: [facility] Start: 06-01-2022 End: 06-01-[address] Balta Sandoval Work Phone: [facility] Work Phone: Start: 06-01-2022 End: 06-01-[address] Balta Sandoval Work Phone: [facility] Start: 04-29-2022 End: 04-29-[address] Balta Sandoval Work Phone: [facility] Start: 03-04-2022 End: 03-04-[address] Balta Sandoval Work Phone: [facility] Procedures Date Procedure Procedure Detail Performing Clinician Start: 12-03-2022 Plain chest X-ray Dr. Mario Sandoval Work Phone: Start: 08-11-2001 History of coronary artery bypass grafting History of coronary artery bypass surgery Dr. Balta Sandoval Work Phone: Comment on above: CABG x2- GARCIA to LAD , reverse saphenous vein graft to OM1 09/09/01 Plan of Treatment Date Care Activity Detail Author CBC W Auto Differential panel - Blood [facility] Comprehensive metabo lic 1999 panel - Serum or Plasma [facility] Lipid 1996 panel - Serum or Plasma [facility] Magnesium measurement [facility] T4 free measurement [facility] Thyroid stimulating hormone measurement [facility] Payers Date Payer Category Payer Self-pay [id number] 2011 Medicare [id number] Unknown [id number] 2.16.8 [id number] Unknown [id number] 2.16.8 [id number] Unknown [id number] 2.16.8 [id number] Unknown [id number] 2.16.8 [id number] Unknown [id number] 2.16.8 [id number] Unknown [id number] 2.16.8 [id number] Unknown [id number] 2.16.8 [id number] Unknown [id number] 2.16.8 [id number] Unknown [id number] 2.16.8 [id number] Unknown [id number] 2.16.8 [id number] Unknown [id number] 2.16.8 [id number] Unknown [id number] 2.16.8 [id number] Unknown [id number] 2.16.8 [id number] Social History Date Type Detail Facility Start: 04-29-2022 End: 12-03-2023 Tobacco smoking status GAIS Unknown if ever smoked [facility] Start: 1950 Sex Assigned At Male [facility] Start: 12-03-2023 Tobacco smoking stat us GAIS Never smoked tobacco (finding) [facility] Evaluation note 03-26-2025 Note Date & Type Note Facility 03-26-2025 Evaluation note Diagnosis Onset Date Resolution half-way current use of amiodarone acute March 26, 2025 10:34am Atherosclerotic heart disease of [place] coronary artery without angina pectoris chronic March 26, 2025 10:34am History of implantable cardiac defibrillator (ICD) chronic March 26, 2025 10:34am Ischemic cardiomyopathy chronic J 2024 10:34am Paroxysmal ventricular tachycardia chronic March 26, 2025 10:34am Pure hypercholesterolemia chronic March 26, 2025 10:34am [facility] Work Phone: Evaluation note Note Date & Type Note Facility Evaluation note Diagnosis Onset Date Chronic systolic (congestive ) heart failure chronic History of implantable cardi ac defibrillator (ICD) chronic Ischemic cardiomyopathy gun synchronizer tima Paroxysmal ventricular tachycardia chronic Atherosclerotic heart diseas e of [place] coronary artery without angina pectoris chronic Chronic systolic (congestive ) heart failure chronic History of coronary artery bypass surgery August, chronic History of implantable cardi ac defibrillator (ICD) chronic Ischemic cardiomyopathy gun synchronizer tima Paroxysmal ventricular tachycardia chronic Presence of stent in coronar y artery 1999 chronic Pure hypercholesterolemia [facility] Work Phone: Evaluation note Note Date & Type Note Facility Evaluation note Diagnosis Onset Date half-way current use of amiodarone acute Atherosclerotic heart diseas e of [place] coronary artery without angina pectoris chronic History of implantable cardi ac defibrillator (ICD) chronic Ischemic cardiomyopathy gun synchronizer tima Paroxysmal ventricular tachycardia chronic Pure hypercholesterolemia [facility] Work Phone: Evaluation note Note Date & Type Note Facility Evaluation note Diagnosis Onset Date Resolution half-way current use of amiodarone acute March 26, 2025 10:34am Atherosclerotic heart disease of [place] coronary artery without angina pectoris chronic March 26, 2025 10:34am History of implantable cardiac defibrillator (ICD) chronic March 26, 2025 10:34am Ischemic cardiomyopathy chronic J 2024 10:34am Paroxysmal ventricular tachycardia chronic March 26, 2025 10:34am Pure hypercholesterolemia chronic March 26, 2025 10:34am [facility] Work Phone: Reason for referral (narrative) Note Date & Type Note Facility Reason for referral (narrative) No reason for referral information available [facility] Work Phone: Chief Complaint and Reason for Visit Chief Complaint 3 mos remote ICD f/u 6 M FU I25.10 Z95.1 Z95.5 Reason for Visit Chronic systolic (co ngestive) heart failure History of implantable cardiac defibrillator (ICD) Ischemic cardiomyopathy Paroxysmal ventricular tachycardia Atherosclerotic heart disease of [place] coronary artery without angina pectoris Chronic systolic (congestive) heart failure History of coronary artery bypass surgery History of implantable cardiac defibrillator (ICD) Ischemic cardiomyopathy Paroxysmal ventricular tachycardia Presence of stent in coronary artery Pure hypercholesterolemia Chief Complaint 3 mos remote ICD f/u 3 mos remote ICD f/u Amb Documentation 1 Y FU Reason for Visit Chronic systolic (co ngestive) heart failure History of implantable cardiac defibrillator (ICD) Ischemic cardiomyopathy Paroxysmal ventricular tachycardia Atherosclerotic heart disease of [place] coronary artery without angina pectoris Chronic systolic (congestive) heart failure History of coronary artery bypass surgery History of implantable cardiac defibrillator (ICD) Ischemic cardiomyopathy Paroxysmal ventricular tachycardia Presence of stent in coronary artery Pure hypercholesterolemia Chief Complaint Pacer Check Remote 6 M FU ITN LABS 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 Atherosclerotic heart disease of [place] coronary artery without angina pectoris History of implantable cardiac defibrillator (ICD) Ischemic cardiomyopathy Paroxysmal ventricular tachycardia Pure hypercholesterolemia Chief Complaint Admit Date Pacer Check Remote January 15, 2025 4:41 am 8 M FU March 26, 2025 10:3 4am Reason for Visit Admit Date half-way current use of amiodarone March 26, 2025 10:34am Atherosclerotic heart diseas e of [place] coronary artery without angina pectoris March 26, 2025 10:34am History of implantable cardiac defibrill ator (ICD) March 26, 2025 10:34am Ischemic cardiomyopathy March 26, 2025 10:34am Paroxysmal ventricular tachycardia March 26, 2025 10:34am Pure hypercholesterolemia March 26 10:34am Chief Complaint Admit Date Pacer Check Remote January 15, 2025 4:41 am 8 M FU March 26, 2025 10:3 4am INT LAB ORDERS March 26, 2025 11:3 1am Chief Complaint Admit Date Pacer Check Remote January 15, 2025 4:41 am 8 M FU March 26, 2025 10:3 4am INT LAB ORDERS March 26, 2025 11:3 1am Pacer Check Remote April 16, 2025 4:42a m Family History No Family History Records Found Relationship Condition Age at Onset Recorded Date/T dionicio father Coronary artery disease Unknown Myocardial infarction Unknown Hypertension Unknown mother Hemorrhagic disorder Unknown sister Malignant neoplasm of breast Unknown Advance Directives No Advanced Directives Records Found Advance Directive Response Recorded Date/ Time Living Will No August 17 9:13am Power of Shape Carver No August 17, 2017 9:13am Advance Directive Response Recorded Date/ Time Living Will No August 17 8:13am Power of Shape Carver No August 17, 2017 8:13am Advance Directive Response Recorded Date/ Time Living Will No August 17 9:13am Do you have a Healthcare Power of Shape Carver? No August 17, 2017 9:13am Summary Purpose Additional Source Comments Goals (unrecognized section and content) Goals may be documented in a n alternate sectionGoals may be documented in an alternate sectionGoals may be documented in an alternate sectionGoals may be documented in an alternate sectionGoals may be documented in an alternate sectionGoals may be documented in an alternate section Care Teams (unrecognized sec tion and content) Team Status: Active Member Role Status Dates Dr. Soheila Dang MD Family Provider Active No Primary Care Physician Primary Care Provider Active Team Status: Inactive Member Role Status Dates Dr. Balta Sandoval MD Attending Provider Active No Primary Care Physician Referring Provider Active Team Status: Inactive Member Role Status Dates No Primary Care Physician Referring Provider Active Valentina Catalan Attending Provider Active Team Status: Active Member Role Status Dates Sari Boswell Attending Provider Active Team Status: Active Member Role Status Dates Dr. Balta Sandoval MD Attending Provider, Referring Provider Active Team Status: Inactive Member Role Status Dates No Primary Care Physician Primary Care Provider Active Dr. Balta Sandoval MD Attending Provider Active Team Status: Inactive Member Role Status Dates Elijah Turcios CARBONATION EQUIPMENT OPERATOR, CARBONATION EQUIPMENT OPERATOR-C Attending Provider Active Team Status: Inactive Member Role Status Dates Dr. Mata Das MD Attending Provider, Referring Pro vider Active Team Status: Inactive Member Role Status Dates No Primary Care Physician Primary Care Provider Active Elijah Turcios CARBONATION EQUIPMENT OPERATOR, CARBONATION EQUIPMENT OPERATOR-C Attending Provider, Referring Pro vider Active Team Status: Active Member Role Status Dates No Primary Care Physician Primary Care Provider Active Team Status: Inactive Member Role Status Dates Dr. Mata Das MD Attending Provider Active S tart: January 15, 2025 End: January 15, 2025 Dr. Mata Das MD Referring Provider Active S tart: January 15, 2025 End: January 15, 2025 Team Status: Inactive Member Role Status Dates No Primary Care Physician Primary Care Provider Active Start: March 26, 2025 End: March 26, 2025 No Primary Care Physician Referring Provider Active Start: March 26, 2025 End: March 26, 2025 Elijah Turcios CARBONATION EQUIPMENT OPERATOR, CARBONATION EQUIPMENT OPERATOR-C Attending Provider Active S tart: March 26, 2025 End: March 26, 2025 Team Status: Inactive Member Role Status Dates No Primary Care Physician Primary Care Provider Active Start: March 26, 2025 End: March 26, 2025 Elijah H Roof CARBONATION EQUIPMENT OPERATOR, CARBONATION EQUIPMENT OPERATOR-C Attending Provider Active S tart: March 26, 2025 End: March 26, 2025 Elijah Turcios CARBONATION EQUIPMENT OPERATOR, CARBONATION EQUIPMENT OPERATOR-C Referring Provider Active S tart: March 26, 2025 End: March 26, 2025 Team Status: Active Member Role/Relationship Status Dates No Primary Care Physician Primary Care Provider Active Team Status: Inactive Member Role/Relationship Status Dates Dr. Mata Das MD Attending Provider Active S tart: January 15, 2025 End: January 15, 2025 Dr. Mata Das MD Referring Provider Active S tart: January 15, 2025 End: January 15, 2025 Team Status: Inactive Member Role/Relationship Status Dates No Primary Care Physician Primary Care Provider Active Start: March 26, 2025 End: March 26, 2025 No Primary Care Physician Referring Provider Active Start: March 26, 2025 End: March 26, 2025 Elijah Turcios CARBONATION EQUIPMENT OPERATOR, CARBONATION EQUIPMENT OPERATOR-C Attending Provider Active S tart: March 26, 2025 End: March 26, 2025 Team Status: Inactive Member Role/Relationship Status Dates No Primary Care Physician Primary Care Provider Active Start: March 26, 2025 End: March 26, 2025 Elijah Turcios CARBONATION EQUIPMENT OPERATOR, CARBONATION EQUIPMENT OPERATOR-C Attending Provider Active S tart: March 26, 2025 End: March 26, 2025 Elijah Turcios CARBONATION EQUIPMENT OPERATOR, CARBONATION EQUIPMENT OPERATOR-C Referring Provider Active S tart: March 26, 2025 End: March 26, 2025 Team Status: Inactive Member Role/Relationship Status Dates No Primary Care Physician Primary Care Provider Active Start: April 16, 2025 End: April 16, 2025 Dr. Mata Das MD Attending Provider Active S tart: April 16, 2025 End: April 16, 2025 (unrecognized sect ion and content) No Status Records Found INFORMATION SOURCE (unrecogn ized section and content) DATE CREATED AUTHOR 05/11/2025 [facility] FOR RECORDS PERTAINING TO PATIENTS WHO ARE OR HAVE BEEN ENROLLED IN A CHEMICAL DEPENDENCY/SUBSTANCEABUSE PROGRAM, SOME INFORMATION MAY BE OMITTED. This clinical summary was aggregated from multiple sources. Caution should be exercised in using it in the provision of clinical care. This summary normalizes information from multiple sources, and as a consequence, information in this document may materially change the coding, format and clinical context of patient data. In addition, data may be omitted in some cases. CLINICAL DECISIONS SHOULD BE BASED ON THE PRIMARY CLINICAL RECORDS. [facility] [employer] [facility]. provides no warranty or guarantee of the accuracy or completeness of information in this document.
[2025-05-22] MEDS: Potassium Chloride Oral Tablet 20 MEQ PO ×3 (00:24→21:48)
[2025-05-22 00:41] LABS: Red Blood Cells-Urine 0 SEEN /hpf (0-5)
[2025-05-22 00:42] LABS: Color, Urine Yellow (Yellow); Glucose, Dipstick 1000 mg/dl (Normal); Ketone-Dipstick Negative (Negative); Leukocyte Esterase-Dipstick Negative /ul (Negative); Nitrite-Dipstick Negative (Negative); Occult Blood-Urine Negative /ul (Negative); Protein-Dipstick 30 mg/dl (Negative); Specific Gravity, Urine 1.010 (1.002-1.030); Urine Bilirubin Dipstick Negative (Negative)
[2025-05-22 01:00] LABS: Troponin T High Sens 4 HR 49 ng/L (<=22)
[2025-05-22 01:09] LABS: Mucous, Urine RARE /hpf (<or=2+); Squamous Epithelial Cells - UA 0-5 SEEN /hpf (0-5)
[2025-05-22 01:24] LABS: D-Dimer Quantitative (DVT/PE) 3.18 FEU/ug/m (0.27-0.49)
[2025-05-22 01:30] LABS: Magnesium 1.6 mg/dL (1.5-2.2)
--- NOTE | 2025-05-22 02:45 | CT_ITS ---
PROCEDURE: ABDOMEN/PELVIS WITHOUT CONT 05/22/2025 REASON FOR EXAM: ABSCESS IN THIGH. TECHNIQUE: ABDOMEN/PELVIS WITHOUT CONT Noncontrast technique limits evaluation of the abdominal and pelvic viscera. Coronal and Sagittal reconstruction series were provided. One or more dose reduction techniques were used (e.g., Automated exposure control, adjustment of the mA and/or kV according to patient size, use of iterative reconstruction technique). RADIATION DOSE SUMMARY: CTDlvol: 9 mGy DLP: 490 mGycm COMPARISON: No FINDINGS: Moderate, xvttr-[id number]-pyrp-left effusions, adjacent atelectasis. Cardiac enlargement. Liver is upper limits of normal for size. Unremarkable gallbladder. Fatty replaced pancreas. Unremarkable spleen, and adrenal glands. There is a simple right renal cysts. Multiple bilateral renal stones measuring up to 1 cm. There is left renal scarring, correlate for previous partial nephrectomy. No hydronephrosis. Unremarkable bladder. Normal prostate. Presacral edema. No retroperitoneal or pelvic adenopathy. No free air. Nonobstructed bowel. No signs of appendicitis. Diverticulosis. No acute large bowel findings. There is bilateral upper thigh edema. Remote left femur injury status post repair. Lumbar spine degeneration. There is abdominopelvic wall edema. Bilateral inguinal fat hernias. CT/Abdomen/Pelvis without Cont IMPRESSION: Third-spacing. Reading Location: [place] [id number]
--- NOTE | 2025-05-22 02:55 | RAD_ITS ---
PROCEDURE: CHEST 1 VIEW (PORTABLE) 05/22/2025 REASON FOR EXAM: AE CHF TECHNIQUE: Frontal view of the chest. COMPARISON: CT 05/21/2025 FINDINGS: Cardiac enlargement. Status post CABG. Unremarkable cardiac device. Small bilateral effusions. Mildly under aerated lungs. Right central lung airspace opacities. Possible retrocardiac left basilar opacity. No pneumothorax. RAD/Chest 1 View (Portable) IMPRESSION: Asymmetric pulmonary edema pattern, pneumonia not completely excluded. Reading Location: [facility]
[2025-05-22] MEDS: Aztreonam 1 GM 1 GM in 0.9% Normal Saline (50mL MB+) 50 ML IV ×4 (03:09→21:32)
[2025-05-22] MEDS: 0.9% Saline Lock 10 ML Syringe IV ×2 (03:10→21:50)
[2025-05-22] MEDS: Vancomycin HCl 2,000 MG in 0.9% Normal Saline (500mL Bag) 500 ML 250 MG IV (03:20)
[2025-05-22] MEDS: DEXTROSE 5% IV ×3 (04:30→21:42)
[2025-05-22] MEDS: WATER IV ×3 (04:30→21:42)
[2025-05-22] MEDS: ACYCLOVIR IV ×3 (04:30→21:42)
--- NOTE | 2025-05-22 05:26 | PCM.RX.CS ---
Consult Antibiotic Management Pharmacy has been consulted to manage selected antibiotic: Vancomycin Type of Intervention Type of Consult: New start Labs Labs: Sodium 133 mmol/L (133-145) 05/21/25 19:56 Potassium 3.4 mmol/L (3.3-5.1) 05/21/25 19:56 Chloride 89 mmol/L (98-108) L 05/21/25 19:56 Carbon Dioxide 23.4 mmol/L (21.0-32.0) 05/21/25 19:56 Anion Gap 20 (5-15) H 05/21/25 19:56 BUN 21 mg/dL (4-19) H 05/21/25 19:56 Creatinine 1.43 mg/dL (0.70-1.20) H 05/21/25 19:56 Est GFR (MDRD) Non-Af 52 (>60) L 05/21/25 19:56 BUN/Creatinine Ratio 14.8 RATIO (10-20) 05/21/25 19:56 Glucose 420 mg/dL (70-99) H 05/21/25 19:56 Dosing Weight Weight used for dosin.1 kg Estimated Creatinine Clearance Estimated Creatinine Clearance: 44.86 Goal Trough Goal Trough: 15-20 mcg/mL Pharmacy Plan for Drug Dosing Pharmacy Plan for Drug Dosing: Pharmacy Service will continue to monitor and adjust dosing as required. LOADING DOSE 2000MG GIVEN 05/22 @ 0320. START 500MG Q12H AND DRAW TROUGH PRIOR TO 4TH DOSE Follow-Up Labs Follow-Up Labs: Trough: Vancomycin Date/Time Labs Ordered Labs to be done on [date and time ordered]: 05/23 @ 1530
--- NOTE | 2025-05-22 08:15 | CON.PCM.CA_ITS ---
Assessment & Plan Assessment/Plan (1) CHF exacerbation: QUALIFIERS: Heart failure type: systolic Qualified Code(s): I 50.23 - Acute on chronic systolic (congestive) heart failure PLAN: Patient appears to have increasing lower extremity edema although he reports this is fairly constant for him. He has fallen on his right side and has right upper extremity edema as well. He also has an infection in his right groin. The patient's respiratory status he is wheezing throughout and he has rales consistent with volume overload. His BNP is 25,000 his troponin was about what would be expected for someone with known coronary disease in this type of situation. Troponins were 64, 46, 49. Patient is on metoprolol furosemide Isorbid mononitrate 60 mg twice daily he is also on replacement therapy for hypothyroidism related to his amiodarone therapy. The patient has not had any significant ectopy his ICD has not fired. ECG shows normal sinus rhythm with LVH and left axis deviation. Patient has been diuresed with IV diuretics. His I's and O's appear to be equal since admission. He did get contrast exposure with a CTA yesterday and he does have renal insufficiency. (2) Swelling of right upper extremity: PLAN: Evaluation of the right upper extremity per the primary service. (3) Atherosclerotic heart disease of [place] coronary artery without angina pectoris: QUALIFIERS: [place] vs. transplanted heart: [place] heart Qualified Code(s): I25.10 - Atherosclerotic heart disease of [place] coronary artery without angina pectoris PLAN: Patient denies any anginal type symptoms. He is status post bypass graft surgery with a GARCIA to the LAD and a vein graft to the OM branch of the circumflex in 2000. Patient has a hemoglobin A1c of 11 I do not see a diagnosis of diabetes in his records. He is on atorvastatin and he does not smoke. Blood pressures been well-controlled as well. (4) [facility] current use of amiodarone: PLAN: Patient is on amiodarone for suppressive therapy for ventricular tachycardia. He has not been shocked in several years by his report. (5) History of implantable cardiac defibrillator (ICD): PLAN: As of April 16, 2025 his last device check his device was functioning normally. The patient denies any discharges since that point in time. PLAN: Plan 1. Agree with echocardiogram which is ordered. 2. Further recommendations pending results of the echocardiogram. Will evaluate addition of afterload reduction therapy pending results of the echo. 3. Agree with IV diuresis. HPI Consult Data Date of Consult: 05/22/25 HPI Narrative Reason for Consultation: Decompensated heart failure HPI Narrative: ALEXSANDRA HAMMER, is a 74 M who presents with a history of falls which have been chronic due to his cerebral palsy. But he is now progressive weakness he does have bilateral left greater than right lower extremity edema and he has right upper extremity edema related to a fall by his report. The patient's BNP in the emergency department was 25,000 he also has a right groin infection. 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 This is always presented to [facility] for him and he has chronic balance issues resulting in multiple mechanical falls. The patient is status post bypass graft surgery in 2000 receiving a two-vessel graft he also had a prior stenting procedure of the LAD in 1999. He carries a history of hypertension hyperlipidemia and hypothyroidism. He had a history of an EF of 35% and is status post ICD implant which is monitored through the [facility] device clinic. He denies any ICD therapies and his last device check April 16, 2025 showed normal functioning device. Patient does have a history of ventricular tachycardia and has been on suppressive therapy with amiodarone. ECG on admission showed normal sinus rhythm at 69 bpm with LVH and left axis deviation. Currently the patient is resting in bed. He does complain of some shortness of breath and PND. He reports that his lower extremity edema is chronic. He has apparently over the last 2 weeks been deteriorating slowly by the patient's family's observation from the hospital records. [facility] Medical History Presence of stent in coronary artery (~05/2000) Chronic systolic (congestive) heart failure Pure hypercholesterolemia Atherosclerotic heart disease of [place] coronary artery without angina pectoris Edema Chest pain Dyspnea on exertion Congestive heart failure Atherosclerosis of coronary artery bypass graft without angina pectoris Hyperlipidemia Old myocardial infarction Ischemic cardiomyopathy Paroxysmal ventricular tachycardia Encounter for long-term current use of high risk medication Hypothyroidism due to drugs Abnormal stress test Home Medications ?Medication ?Instructions ?Recorded ?Last Taken ?Type aspirin 81 mg tablet,delayed 81 mg PO DAILY 11/07/13 1 10/17/16 History release multivitamin with folic acid 400 1 tab PO DAILY Unknown History mcg tablet Handicap Placard #1 ea 06/19/19 Unknown Rx nitroglycerin 0.4 mg sublingual 0.4 mg sublingual Q5M PRN Chest 02/29/20 Unknown Rx tablet Pain #25 tabs levothyroxine 100 mcg tablet 100 mcg PO DAILY #90 tabs 12/03/22 Unknown Rx atorvastatin 40 mg tablet (Lipitor) 40 mg PO Q OTHER D AY #45 tabs 04/17/24 Unknown Rx Handicap Placcard #1 ea 07/27/24 Unknown Rx clopidogrel 75 mg tablet 75 mg PO DAILY #90 tabs 08/11 02/01 Unknown Rx amiodarone 200 mg tablet 100 mg (1/2 x 200 mg) PO LUCIA LY #45 04/20/25 Unknown Rx tabs furosemide 40 mg tablet 40 mg PO DAILY #90 tabs 04/10 11/04 Unknown Rx isosorbide mononitrate 60 mg 60 mg PO BID #180 tabs Unknown Rx tablet,extended release 24 hr metoprolol tartrate 100 mg tablet 50 mg (1/2 x 100 mg) PO BID #90 04/20/25 Unknown Rx tabs Allergy/AdvReac Type Severity Reaction Status Date / Time lisinopril (From Prinivil) Allergy tongue Verified 05/21/25 19:18 swelling Penicillins Allergy Swelling Verified 05/21/25 19:18 Family History Father CAD (coronary artery disease) Myocardial infarction Hypertension Mother Bleeding disorder Sister Breast cancer Surgical History Presence of coronary angioplasty implant and graft (~05/2000) History of coronary artery bypass surgery (~09/09/01) Hx of CABG (~09/09/01) History of implantable cardiac defibrillator (ICD) Postsurgical percutaneous transluminal coronary angioplasty (PTCA) status (~05/2000) Social History Smoking Status: Never smoker alcohol intake: never substance use type: does not use caffeine: Yes Type: carbonated beverages and tea what type of physical activity do you participate in: none seatbelt use: always do you feel safe at home: Yes ROS Constitutional Constitutional: Reports as per HPI Eyes Eyes: Reports systems reviewed and no addt'l complaints, except as documented ENT HEENT: Reports systems reviewed and no addt'l complaints, except as documented Cardiovascular Cardiovascular: Reports as per HPI Respiratory/Chest Respiratory/Chest: Reports as per HPI Gastrointestinal Gastrointestinal: Reports systems reviewed and no addt'l complaints, except as documented Genitourinary Genitourinary: Reports systems reviewed and no addt'l complaints, except as documented Musculoskeletal Musculoskeletal: Reports as per HPI Integumentary Integumentary: Reports systems reviewed and no addt'l complaints, except as documented Neurologic Neurologic: Reports as per HPI Psychiatric Psychiatric: Reports systems reviewed and no addt'l complaints, except as documented Endocrine Endocrinology: Reports systems reviewed and no addt'l complaints, except as documented Hematologic/Lymphatic Hematologic/Lymphatic: Reports as per HPI Allergic/Immunologic Allergic/Immunologic: Reports systems reviewed and no addt'l complaints, except as documented Physical Exam Const alert and oriented x3 HEENT normocephalic Eyes EOMs intact bilaterally Neck no JVD Chest Chest Narrative: ICD implant in the left infraclavicular area. Resp normal respiratory effort Auscultation: rales bilateral lower and wheezes expiratory wheezes and throughout Cardio Rate: regular rate Rhythm: regular rhythm Heart Sounds: S1 normal, S2 normal and gallop S3 gallop; Negative for click or murmur GI normal to inspection, nondistended, normoactive bowel sounds Extremity General Extremity: edema right upper extremity moderate and lower extremity mild and left lower extremity moderate Psych mental status grossly normal Risk Stratification Risk Stratification Applicable: No Charges/Coding Visit Charges Inpatient E&M: 27321 Init Hosp L3 Objective Data Vital Signs: Vital Signs Temp Pulse Resp BP Pulse Ox O2 Del Method O2 Flow Rate 97.7 F L 78 16 127/83 H 93 Nasal Cannula 2 05/22/25 04:22 05/22/25 04:22 05/22/25 04:22 05/22/25 04:22 05/22/25 07:56 05/22/25 07:56 05/22/25 07:56 Oxygen Flow Rate (L/min) 2 Oxygen Delivery Method Nasal Cannula Weight: 174 lb 2.643 oz Body Mass Index (BMI) 29.9 Intake & Output: Intake and Output for Last 24 Hours 05/20/25 05/21/25 05/22/25 23:59 23:59 23:59 Intake Total 1000 / 1000 902 / 902 Output Total 600 / 600 Balance 1000 / 1000 302 / 302 Lab / Micro Data Attestation: I reviewed the patient's lab results. 05/21/25 19:56 05/21/25 19:56 Labs: Laboratory Results - last 24 hr 05/21/25 19:56: WBC 8.9, RBC 5.66, Hgb 16.2, Hct 49.7, MCV 87.8, MCH 28.6, MCHC 32.6, RDW Std Deviation 49.8 H, RDW Coeff of Shilo 15.6 H, Plt Count 175, MPV 10.9, Immature Gran % (Auto) 0.400, Neut % (Auto) 69.4, Lymph % (Auto) 21.4, [place] % (Auto) 7.0, Eos % (Auto) 1.5, Baso % (Auto) 0.3, Absolute Neuts (auto) 6.2, Absolute Lymphs (auto) 1.91, Nucleated RBC % 0, PT 15.0 H, INR 1.2, APTT 26.3, Sodium 133, Potassium 3.4, Chloride 89 L, Carbon Dioxide 23.4, Anion Gap 20 H, BUN 21 H, Creatinine 1.43 H, Estim Creat Clear Calc 44.86 L, Est GFR (MDRD) Non-Af 52 L, BUN/Creatinine Ratio 14.8, Glucose 420 H, Hemoglobin A1c 11.0 H, Calcium 9.1, Troponin T High Sens 64 H*, [place] [address] H 05/21/25 22:15: Troponin T Hi Sens 2 Hr 46 H 05/22/25 00:17: Magnesium 1.6, Troponin T Hi Sens 4Hr 49 H, TSH 4.340 H 05/22/25 00:20: Urine Color Yellow, Urine Clarity Clear, Urine pH 5.0, Ur Specific [place] 1.010, Urine Protein 30 H, Urine Glucose (UA) 1000 H, Urine Ketones Negative, Urine Occult Blood Negative, Urine Nitrite Negative, Urine Bilirubin Negative, Urine Urobilinogen 1 H, Ur Leukocyte Esterase Negative, Urine RBC 0 SEEN, Urine WBC 0-5 SEEN, Ur Squamous Epith Cells 0-5 SEEN, Urine Bacteria RARE, Hyaline Casts 0-5 SEEN, Urine Mucus RARE 05/22/25 00:42: D-Dimer Quant (PE/DVT) 3.18 H* Rhythm Strip Rhythm Strip: Sinus Rhythm Rate: 69 Ectopy: PVC(s) Cardiology Labs/Tests 05/21/25 19:56: WBC 8.9, RBC 5.66, Hgb 16.2, Hct 49.7, MCV 87.8, MCH 28.6, MCHC 32.6, Plt Count 175, MPV 10.9, Immature Gran % (Auto) 0.400, Neut % (Auto) 69.4, Lymph % (Auto) 21.4, [place] % (Auto) 7.0, Eos % (Auto) 1.5, Baso % (Auto) 0.3, Absolute Neuts (auto) 6.2, Nucleated RBC % 0, PT 15.0 H, INR 1.2, APTT 26.3, Sodium 133, Potassium 3.4, Chloride 89 L, Carbon Dioxide 23.4, Anion Gap 20 H, B UN 21 H, Creatinine 1.43 H, Est GFR (MDRD) Non-Af 52 L, BUN/Creatinine Ratio 14.8, Glucose 420 H, Hemoglobin A1c 11.0 H, Calcium 9.1 05/22/25 00:17: Magnesium 1.6 05/22/25 00:20: Urine Color Yellow, Urine Clarity Clear, Urine pH 5.0, Ur Specific [place] 1.010, Urine Protein 30 H, Urine Glucose (UA) 1000 H, Urine Ketones Negative, Urine Occult Blood Negative, Urine Nitrite Negative, Urine Bilirubin Negative, Urine Urobilinogen 1 H, Ur Leukocyte Esterase Negative, Urine RBC 0 SEEN, Urine WBC 0-5 SEEN 05/22/25 00:42: D-Dimer Quant (PE/DVT) 3.18 H* Rhythm: EKG: ECHO: Stress Test: Cardiac Cath: PCI: CT Surgery: Holter monitor: EPS: PPM: CXR: Chest CT Scan: Radiography Diagnostic Testing: Radiology Impression Chest CTA 05/21/25 20:45 IMPRESSION: 1. No pulmonary embolism. 2. Bilateral pleural effusion with compressive atelectasis. Hazy ground-glass attenuation may reflect pulmonary edema or multifocal pneumonia. Reading Location: [facility] Abdomen/Pelvis CT 05/22/25 02:45 IMPRESSION: Third-spacing. Reading Location: [facility] Chest X-Ray 05/22/25 02:55 IMPRESSION: Asymmetric pulmonary edema pattern, pneumonia not completely excluded. Reading Location: [place] [address]
[2025-05-22 08:24] LABS: Hematocrit 45.0 % (40-54); Hemoglobin 15.0 g/dL (13.0-16.5); Immature Granulocytes Count 0.020 X10^3/uL (0.0-0.0); Mean Corp Hgb Conc 33.3 g/dL (32-36); Mean Corpuscular Volume 86.5 fL (80-94); Mean Platelet Vol. 10.9 fl (6.2-12.0); NRBC Flagged by Analyzer 0 % (0-5); Platelet Count 151 K/mm3 (150-450); RBC Distribution Width CV 15.3 % (11.6-14.6); RBC Distribution Width SD 48.2 fl (35.1-43.9); Red Blood Count 5.20 M/mm3 (4.6-6.2); White Blood Count 8.3 K/mm3 (4.4-11.0)
[2025-05-22 08:52] LABS: AST(SGOT) 38 U/L (<=37); Alanine Aminotransfer ALT/SGPT 43 U/L (<=46); Albumin, Serum 3.3 g/dL (3.4-4.8); Alkaline Phosphatase 111 U/L (40-129); Anion Gap 17 (5-15); BUN 20 mg/dL (4-19); BUN/Creat Ratio 16.3 RATIO (10-20); Calcium,Total 8.5 mg/dL (7.6-11.0); Carbon Dioxide 24.4 mmol/L (21.0-32.0); Chloride 94 mmol/L (98-108); Cholesterol 137 mg/dL (<=200); Estimated Creatinine Clearance 52.39 ml/min (50-250); Globulin 2.8 g/dL (2.2-4.2); Glucose 341 mg/dL (70-99); Low Density Lipoprotein Calc. 68 mg/dL; Potassium 3.3 mmol/L (3.3-5.1); Pro- Brain NATRIURETIC PEPTIDE 16971 pg/mL (<=900); Triglycerides 99 mg/dL; Very Low Density Lipoprotein 20 mg/dL (5-40); cholesterol:hdl ratio screen 2.80
[2025-05-22] MEDS: Aspirin E.C. 81 MG Tablet PO (08:55)
--- NOTE | 2025-05-22 10:14 | CASEMGMT ---
YESIKA CONTRERAS Assessment Face to Face with patient for initial transition planning/care coordination assessment. YESIKA CONTRERAS introduced self and role at [facility], pt voices understanding. Pt is A&Ox4 and is resting comfortably in bed and is calm. Care providers, pharmacy, and demographics verified. Admitting dx: AE of CHF LACE Strata: 2 PCP: No PCP. List was provided by ER LEAH Specialists: ANA MARIA Preferred Pharmacy: [facility] Insurance: [facility] A/B only Prescription Benefit: Denies. Pt states that he uses [facility] and denies concerns at this time LNOK: Dottie (SO), Pool (Son) Living Arrangements: Pt lives with his SO in a single story home with 2 steps to enter ADLs/IADLs: Pt states that he is indep at baseline but has been requiring assistance recently through his SO Transportation: Self normally. Pt's SO currently drives him DME/ Wound: Scale regarding CHF. Noted the pt has a fall at home prior to admission. Inquired if pt would be interested in a medical alert system. Pt declines reporting that he will be OK as long as Dottie is there. Pt is currently requiring additional oxygen and may qualify for home oxygen use. A verbal list of local in-network DME companies were provided to the pt at this time. Pt prefers [facility]Pt also states that he has a cane, FWW, rollator, grab bars, and BP machine. Pt states that he does not shower often and has poor hygiene. SW notified. See H&P regarding HSV. Wound RN is consulted. HHC/SNF: Reports HHC hx in 1985. Pt states he would like HHC again for a couple days a week. See below. Denies SNF hx or needs Pt?s goal: Home Plan: TBD. Follow for HH, oxygen, Rx costs, and wound care. Echo pending. At this time, pt is currently on bedrest. 6-Click score is 8, PT/OT ordered and to evaluate once appropriate. Cardio consulted. At this time, the pt states that he prefers to return home @ the time of DC. Pt states that he has support through his SO, DAINA, and GS. Pt states that he would appreciate nursing home HHC to assist with wound care and possible oxygen assistance. Pt also reports that he would be receptive to physical therapy. Pt declines wanting to review a list of HHC agencies and states that he would prefer [facility]. Pt denies further questions or concerns at this time. Report given to AILIN NAPOLES CM and SW. Jacek Renee RN CM
[2025-05-22 10:57] LABS: Staph aureus DNA By PCR NEGATIVE (Negative)
[2025-05-22] MEDS: Magnesium Chloride 64 MG Delay Rel.Tablet 128 MG PO ×2 (11:51→21:48)
[2025-05-22] MEDS: Ensure Plus High Protein 120 ML LIQUID PO (12:11)
--- NOTE | 2025-05-22 13:15 | PN.HOSP_ITS ---
Reason for Visit Chief Complaint: Swelling in Extremities, Generalized Weakness and Falls. Objective Data Objective Data Vital Signs: Vital Signs Temp Pulse Resp BP Pulse Ox O2 Del Method O2 Flow Rate 97.9 F 95 18 127/75 H 94 Room Air 2 05/22/25 10:22 05/22/25 11:50 05/22/25 10:22 05/22/25 10:22 05/22/25 10:22 05/22/25 10:22 05/22/25 07:56 Oxygen Flow Rate (L/min) 2 Oxygen Delivery Method Room Air Weight: 174 lb 2.643 oz Body Mass Index (BMI) 29.9 Intake & Output: Intake and Output for Last 24 Hours 05/20/25 05/21/25 05/22/25 23:59 23:59 23:59 Intake Total 1000 / 1000 902 / 902 Output Total 600 / 600 Balance 1000 / 1000 302 / 302 Lab / Micro Data 05/22/25 08:00 05/22/25 08:00 Labs: Laboratory Results - last 24 hr 05/21/25 19:56: WBC 8.9, RBC 5.66, Hgb 16.2, Hct 49.7, MCV 87.8, MCH 28.6, MCHC 32.6, RDW Std Deviation 49.8 H, RDW Coeff of Shilo 15.6 H, Plt Count 175, MPV 10.9, Immature Gran % (Auto) 0.400, Neut % (Auto) 69.4, Lymph % (Auto) 21.4, [place] % (Auto) 7.0, Eos % (Auto) 1.5, Baso % (Auto) 0.3, Absolute Neuts (auto) 6.2, Absolute Lymphs (auto) 1.91, Nucleated RBC % 0, PT 15.0 H, INR 1.2, APTT 26.3, Sodium 133, Potassium 3.4, Chloride 89 L, Carbon Dioxide 23.4, Anion Gap 20 H, BUN 21 H, Creatinine 1.43 H, Estim Creat Clear Calc 44.86 L, Est GFR (MDRD) Non-Af 52 L, BUN/Creatinine Ratio 14.8, Glucose 420 H, Hemoglobin A1c 11.0 H, Calcium 9.1, Troponin T High Sens 64 H*, [place] [address] H 05/21/25 22:15: Troponin T Hi Sens 2 Hr 46 H 08/12/25 00:17: Magnesium 1.6, Troponin T Hi Sens 4Hr 49 H, TSH 4.340 H 05/22/25 00:20: Urine Color Yellow, Urine Clarity Clear, Urine pH 5.0, Ur Specific Superior 1.010, Urine Protein 30 H, Urine Glucose (UA) 1000 H, Urine Ketones Negative, Urine Occult Blood Negative, Urine Nitrite Negative, Urine Bilirubin Negative, Urine Urobilinogen 1 H, Ur Leukocyte Esterase Negative, Urine RBC 0 SEEN, Urine WBC 0-5 SEEN, Ur Squamous Epith Cells 0-5 SEEN, Urine Bacteria RARE, Hyaline Casts 0-5 SEEN, Urine Mucus RARE 05/22/25 00:42: D-Dimer Quant (PE/DVT) 3.18 H* 05/22/25 01:35: S.aureus Protein A PCR NEGATIVE, MRSA (PCR) Negative 05/22/25 08:00: WBC 8.3, RBC 5.20, Hgb 15.0, Hct 45.0, MCV 86.5, MCH 28.8, MCHC 33.3, RDW Std Deviation 48.2 H, RDW Coeff of [place]ilo 15.3 H, Plt Count 151, MPV 10.9, Immature Gran % (Auto) 0.200, Neut % (Auto) 68.3, Lymph % (Auto) 23.5, [place] % (Auto) 6.6, Eos % (Auto) 0.8, Baso % (Auto) 0.6, Absolute Neuts (auto) 5.7, Absolute Lymphs (auto) 1.95, Nucleated RBC % 0, Sodium 135, Potassium 3.3, Chloride 94 L, Carbon Dioxide 24.4, Anion Gap 17 H, BUN 20 H, Creatinine 1.21 H, Estim Creat Clear Calc 52.39, Est GFR (MDRD) Non-Af 64, BUN/Creatinine Ratio 16.3, Glucose 341 H, Calcium 8.5, Phosphorus 3.3, Total Bilirubin 1.22, AST 38, ALT 43, Alkaline Phosphatase 111, [place] [address] H, Total Protein 6.1, A lbumin 3.3 L, Globulin 2.8, Albumin/Globulin Ratio 1.2, Triglycerides 99, Cholesterol 137, LDL Cholesterol, Calc 68, VLDL Cholesterol 20, HDL Cholesterol 49, Cholesterol/HDL Ratio 2.80 Radiography Diagnostic Testing: Radiology Impression Chest CTA 05/21/25 20:45 IMPRESSION: 1. No pulmonary embolism. 2. Bilateral pleural effusion with compressive atelectasis. Hazy ground-glass attenuation may reflect pulmonary edema or multifocal pneumonia. Reading Location: [facility] Echocardiogram 05/21/25 23:59 Interpretation Summary Unable to assess diastolic dysfunction due to arrhythmia. Mildly dilated left ventricle.EDV 5.4 cm Severe global left ventricular systolic dysfunction. Mild eccentric left ventricular hypertrophy. There is severe global hypokinesis noted estimated LVEF 15% Normal RV size. Moderate global right ventricular systolic dysfunction. Moderate (2+) mitral valve insufficiency. Mild to moderate (1-2+) tricuspid valve insufficiency. Right ventricular systolic pressure estimated to be 45-50 mmhg, moderate pulmonary hypertension mmHg. When compared to previous echocardiographic report only, 2021, there is significant worsening systolic function noted on the current study Ordering Physician: Edmar Flores Performed By: Lucy Watts RDCS Abdomen/Pelvis CT 05/22/25 02:45 IMPRESSION: Third-spacing. Reading Location: [place] [address] Chest X-Ray 05/22/25 02:55 IMPRESSION: Asymmetric pulmonary edema pattern, pneumonia not completely excluded. Reading Location: [facility]- Rhythm Strip Rhythm Strip: Sinus Rhythm Rate: 69 Ectopy: PVC(s) Physical Exam Narrative Seen and examined. Admitted with lower extremity swelling, generalized weakness, shortness of breath and wheezing. Denies chest pain or pressure or tightness Physical exam General: Alert, Oriented x3, Cooperative HEENT: Atraumatic, PERRLA, EOMI, Normocephalic. Oral: No Gingival or Mucosal Lesions/ Ulcerations Neck: Supple, No JVD, Negative Carotid Bruits Chest wall/Lungs: Air entry diminished in bilateral lung bases. Bilateral crepitations Cardiovascular: Regular rate and rhythm, Normal S1,S2, No M/G/R Abdomen: Bowel Sounds Present, Soft, Non Tender, Non-Distended : No dysuria. No renal angle tenderness. No suprapubic tenderness. Extremities: Bilateral leg swelling and right upper extremity swelling/edema, Capillary Refill Less than 3 Seconds Skin: Noticed to have draining wartlike lesions in groin by nursing staff. Musculoskeletal: No Tenderness to Palpation of Joints or Extremities Neurological: Cranial nerves II-XII grossly intact, DTR 2+/4. No acute focal neurological deficit. Psych/Mental Status: Flat affect. 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 1. Acute on chronic HFrEF status post AICD: Patient is being admitted in PCU. proBNP 25,000. CTPA shows no pulmonary embolism but bilateral pleural effusion with compressive atelectasis and hazy groundglass attenuation suggestive of pulmonary edema. Twelve-lead EKG NSR with LVH, LAD. On IV furosemide 40 mg twice daily. Heart failure core measures including intake and output, fluid restriction less than 1500 mL, daily weight monitoring, kidney and electrolytes monitoring. Community Health Agent consulted. physician pediatrician shows sinus rhythm. Last echo in 2021 shows EF 35%. 2. CAD, stent in 2009 CABG double vessel in 2000: Elevated Troponin T of 64 ng/L, 46 and 49. Patient denies anginal-like symptoms, ACS ruled. History of CABG with GARCIA to LAD, vein graft to OM in 2000. Continue medical management. Troponins flat does not meet criteria for non-STEMI type I. Continue baby aspirin, Plavix, isosorbide mononitrate 4. Pus emanating from Right groin/thigh consistent with suspected Cellulitis in the setting of Chronic HSV infection:- Start empiric IV vancomycin and IV aztreonam given PCN allergy and drug interaction with quinolones and amiodarone. Start IV acyclovir and check to confirm HSV. CT abdomen does not mention about the skin lesions in the groin on the reporting but there is irregularity/ulceration in the groin/scrotal region on my individual review. Wound nurse consulted. Consult ID 5. Generalized Weakness and Falls with RUE swelling for ~2 weeks after recent fall: PT and OT. Venous duplex shows multiple clots in basilic vein and cephalic vein. Started on Eliquis 10 mg p.o. twice daily for anticoagulant dose. Discontinue Plavix as patient has stent in 1999 6. Obesity; with BMI of 30.7 this admission - Weight loss encouraged. TSH upper limit of normal. 4.34 7. History of paroxysmal ventricular tachycardia; on amiodarone - Resume amiodarone as previous. 8. History of ischemic cardiomyopathy and arrhythmia; s/p PPM/AICD - Noted. 9. Essential hypertension; on metoprolol and furosemide on metoprolol.?Lisinopril 10. Hyperlipidemia; on atorvastatin - Continue statin and HDL 49. LDL 68. 11. Hypothyroidism; on levothyroxine - levothyroxine increased 12. OA - Give acetaminophen prn 13. DVT prophylaxis - Patient treated with full-dose LMWH for #4 until DVT ruled out in Doppler. Clinical Impression(s) from Imaging Studies Chest CTA 05/21/25 20:45 IMPRESSION: 1. No pulmonary embolism. 2. Bilateral pleural effusion with compressive atelectasis. Hazy ground-glass attenuation may reflect pulmonary edema or multifocal pneumonia. Reading Location: [facility] Echocardiogram 05/21/25 23:59 Interpretation Summary Unable to assess diastolic dysfunction due to arrhythmia. Mildly dilated left ventricle.EDV 5.4 cm Severe global left ventricular systolic dysfunction. Mild eccentric left ventricular hypertrophy. There is severe global hypokinesis noted estimated LVEF 15% Normal RV size. Moderate global right ventricular systolic dysfunction. Moderate (2+) mitral valve insufficiency. Mild to moderate (1-2+) tricuspid valve insufficiency. Right ventricular systolic pressure estimated to be 45-50 mmhg, moderate pulmonary hypertension mmHg. When compared to previous echocardiographic report only, 2021, there is significant worsening systolic function noted on the current study Ordering Physician: Edmar Flores Performed By: Lucy Watts, ALBERT Abdomen/Pelvis CT 05/22/25 02:45 IMPRESSION: Third-spacing. Reading Location: [place] [address] Chest X-Ray 05/22/25 02:55 IMPRESSION: Asymmetric pulmonary edema pattern, pneumonia not completely excluded. Reading Location: [place] [address] Charges/Coding Addendum Addendum: Total time of the visit including total time spent in counseling or coordination of care, (more than 50% of the total time, spent in obtaining medical information from nurses and other ancillary care providers ,explaining to the patient about labs, imaging, diagnosis and management of active complex medical conditions), , review of labs and imaging is 35 minutes. Visit Charges Inpatient E&M: 61816 [facility] Hosp L3
[2025-05-22] MEDS: APIXABAN 5 MG TABLET 10 MG PO ×2 (14:38→23:41)
--- NOTE | 2025-05-22 14:58 | CHAPLAIN ---
Type of Pastoral Visit _x__ Initial Visit ___ Follow-up Visit ___ On-call Visit ___ General Patient Visit ___ Spiritual Assessment ___ Family Conference ___ Bereavement ___ Rapid Response ___ Code Blue ___ Other (describe below) Pastoral Care Referral From _x__ Patient _x__ Family ___ Nurse ___ Physician ___ Tracer Bullet Charging Machine Operator ___ Mill Feeder ___ Other (describe below) Sacrament/Intervention _x__ Active listening ___ Anointing ___ Anabaptist ___ Bereavement ___ Communion _x__ June exploration ___ _x__ Life review _x__ Prayer ___ Reconciliation ___ Sacrament of Sick _x__ Supportive presence ___ Wedding ___ Other (describe below) Pastoral Comments patient and several family members are in the room; pt gives lots of life review and comments on his 'beliefs'; pt emphasizes that he worked many weekends and didn't get to uatsdin but that 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
--- NOTE | 2025-05-22 15:41 | CASEMGMT ---
YESIKA CONTRERAS updated by hospitalist that patient would like hospice consult and would prefer to go home with hospice. YESIKA CONTRERAS updated SW.
[2025-05-22] MEDS: Vancomycin HCl 500 MG in 0.9% Normal Saline (100mL Bag) 100 ML 100 MG IV (16:53)
[2025-05-22 19:35] LABS: HIV Nonreactive (Nonreactive)
--- NOTE | 2025-05-22 20:07 | CASEMGMT ---
Social Work Received notice from YESIKA Reyes that provider spoke with patient and family who are all now on board with a hospice referral. This lyric writer spoke with Dr. Sinclair who provided verbal order for hospice referral and confirmed the referral is hospice at home. Provider did mention that [facility] may be a good option though patient really wants to return home. Met with patient's family in the waiting area: Son Pool, [id number] Summer, and patient's significant other Dottie. Family in the process of filling out advance directive paperwork. This lyric writer voiced ability to assist with this and to get the most updated version of the documents as noted and older version was being used. Family confirms being on board with hospice referral, and wanting to respect the patient's wishes which she is to be on hospice and received comfort care only. Family confirmed patient would like to be at home on hospice. Met with patient in room, introduced self and social work role. 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 Patient confirmed history of working with hospice when the patient's now was in the dying process. The family had used [facility], now known as [facility] hospice. This lyric writer explored whether patient would like the same hospice service or to go with a different service as there are choices. Patient reported desire to go with [facility] hospice. This lyric writer also explored patient's desire to complete healthcare advanced directives. Patient would like the order of the directives to be son Pool, [id number] Summer, and significant other Dottie. Patient does have 2 other sons though patient shared they have struggled with addiction and are not around as much. Referral made to [place] hosp[facility] via phone call. Faxed referral information to confirmed fax at . Asked for return phone call with time of family meeting. Met with patient and completed advance directives. Copy is placed on the chart and original and copies returned back to patient/family. Met with family to update. Updated charge nurse. Emotional support provided to patient and family this date. Plan: Hospice pending admission assessment, and coordination of necessary medical supplies for patient to be safely cared for at home. -YANCI Fisher, CT SCAN TECHNOLOGIST *This note was generated with [employer] software. It may contain incorrect words, spelling, and punctuation that were not noted in review of the chart prior to signing*
[2025-05-22] MEDS: MELATONIN 10 MG TABLET PO (21:49)
[2025-05-23 03:00] VITALS: PULSE 71
[2025-05-23] MEDS: Vancomycin HCl 500 MG in 0.9% Normal Saline (100mL Bag) 100 ML 100 MG IV (04:24)
[2025-05-23 04:29] VITALS: BP 117/73; PULSE 71; RESP 16; TEMP 35.5; O2SAT 96
[2025-05-23 05:00] VITALS: BMI 31.3
[2025-05-23] MEDS: Aztreonam 1 GM 1 GM in 0.9% Normal Saline (50mL MB+) 50 ML IV (05:52)
[2025-05-23 06:41] VITALS: O2SAT 95
--- NOTE | 2025-05-23 08:12 | PN.CARD_ITS ---
Subjective Subjective Patient sleeping but arousable. He denies any shortness of breath resting comfortably in bed. He denies any chest symptoms. Objective Data Vital Signs: Vital Signs Temp Pulse Resp BP Pulse Ox O2 Del Method O2 Flow Rate 95.9 F L 71 16 117/73 96 Nasal Cannula 2.5 05/23/25 04:29 05/23/25 04:29 05/23/25 04:29 05/23/25 04:29 05/23/25 04:05/23/25 04:33 05/23/25 04:33 Oxygen Flow Rate (L/min) 2.5 Oxygen Delivery Method Nasal Cannula Weight: 182 lb 9.6 oz Body Mass Index (BMI) 31.3 Intake & Output: Intake and Output for Last 24 Hours 05/21/25 05/22/25 05/23/25 23:59 23:59 23:59 Intake Total 1000 / 1000 1636 / 1636 160 / 160 Output Total 1600 / 1600 900 / 900 Balance 1000 / 1000 36 / 36 -740 / -740 Lab / Micro Data Attestation: I reviewed the patient's lab results. 05/22/25 08:00 05/22/25 08:00 Labs: Laboratory Results - last 24 hr 05/22/25 01:35: S.aureus Protein A PCR NEGATIVE, MRSA (PCR) Negative 05/22/25 08:00: WBC 8.3, RBC 5.20, Hgb 15.0, Hct 45.0, MCV 86.5, MCH 28.8, MCHC 33.3, RDW Std Deviation 48.2 H, RDW Coeff of Shilo 15.3 H, Plt Count 151, MPV 10.9, Immature Gran % (Auto) 0.200, Neut % (Auto) 68.3, Lymph % (Auto) 23.5, [place] % (Auto) 6.6, Eos % (Auto) 0.8, Baso % (Auto) 0.6, Absolute Neuts (auto) 5.7, Absolute Lymphs (auto) 1.95, Nucleated RBC % 0, Sodium 135, Potassium 3.3, Chloride 94 L, Carbon Dioxide 24.4, Anion Gap 17 H, BUN 20 H, Creatinine 1.21 H, Estim Creat Clear Calc 52.39, Est GFR (MDRD) Non-Af 64, BUN/Creatinine Ratio 16.3, Glucose 341 H, Calcium 8.5, Phosphorus 3.3, Total Bilirubin 1.22, AST 38, ALT 43, Alkaline Phosphatase 111, [place] [address] H, Total Protein 6.1, A lbumin 3.3 L, Globulin 2.8, Albumin/Globulin Ratio 1.2, Triglycerides 99, Cholesterol 137, LDL Cholesterol, Calc 68, VLDL Cholesterol 20, HDL Cholesterol 49, Cholesterol/HDL Ratio 2.80 05/22/25 16:09: HIV 1&2 Antibody Nonreactive Micro: Microbiology 05/22/25 01:35 Wound - Groin Gram Stain - Final Rhythm Strip Rhythm Strip: Sinus Rhythm Rate: 85 Ectopy: PVC(s) Cardiology Labs/Tests 05/22/25 08:00: WBC 8.3, RBC 5.20, Hgb 15.0, Hct 45.0, MCV 86.5, MCH 28.8, MCHC 33.3, Plt Count 151, MPV 10.9, Immature Gran % (Auto) 0.200, Neut % (Auto) 68.3, Lymph % (Auto) 23.5, [place] % (Auto) 6.6, Eos % (Auto) 0.8, Baso % (Auto) 0.6, Absolute Neuts (auto) 5.7, Nucleated RBC % 0, Sodium 135, Potassium 3.3, C hloride 94 L, Carbon Dioxide 24.4, Anion Gap 17 H, BUN 20 H, Creatinine 1.21 H, Est GFR (MDRD) Non-Af 64, BUN/Creatinine Ratio 16.3, Glucose 341 H, Calcium 8.5, Phosphorus 3.3, Total Bilirubin 1.22, Triglycerides 99, Cholesterol 137, VLDL Cholesterol 20, HDL Cholesterol 49, Cholesterol/HDL Ratio 2.80 Rhythm: EKG: ECHO: Stress Test: Cardiac Cath: PCI: CT Surgery: Holter monitor: EPS: PPM: CXR: Chest CT Scan: Radiography Diagnostic Testing: Radiology Impression Echocardiogram 05/21/25 23:59 Interpretation Summary Unable to assess diastolic dysfunction due to arrhythmia. Mildly dilated left ventricle.EDV 5.4 cm Severe global left ventricular systolic dysfunction. Mild eccentric left ventricular hypertrophy. There is severe global hypokinesis noted estimated LVEF 15% Normal RV size. Moderate global right ventricular systolic dysfunction. Moderate (2+) mitral valve insufficiency. Mild to moderate (1-2+) tricuspid valve insufficiency. Right ventricular systolic pressure estimated to be 45-50 mmhg, moderate pulmonary hypertension mmHg. When compared to previous echocardiographic report only, 2021, there is significant worsening systolic function noted on the current study Ordering Physician: Edmar Flores Performed By: Lucy Watts RDCS Venous Doppler Study 05/21/25 23:59 Interpretation Summary Acute deep vein thrombosis noted in the right subclavian vein, axillary vein, brachial vein. Acute superficial vein thrombosis noted in the right basilic vein. Ordering Physician: Edmar Flores Referring Physician: N/A Performed By: Eduardo Long, T ??? Physical Exam Const Constitutional Narrative: Sleeping but easily arousable HEENT normocephalic Eyes EOMs intact bilaterally Neck supple Chest inspection of chest normal Chest: left pectoral incision Resp normal respiratory effort Auscultation: diminished lung sounds bilateral lower Cardio Cardio Narrative: Heart tones difficult to auscultate distant. Rate: regular rate Rhythm: regular rhythm Heart Sounds: S1 normal and S2 normal; Negative for click, gallop or murmur GI soft to palpation Extremity Extremity Narrative: Wrapped bilaterally General Extremity: edema bilateral lower extremity Details: moderate Neuro Neuro Narrative: Sleepy and lethargic but easily arousable. Psych cooperative Assessment & Plan Assessment/Plan (1) CHF exacerbation: QUALIFIERS: Heart failure type: systolic Qualified Code(s): I 50.23 - Acute on chronic systolic (congestive) heart failure PLAN: Patient's echocardiogram demonstrated an EF severely globally dilated at 15%. He has 2+ mitral regurgitation 1-2+ tricuspid regurgitation right ventricular systolic pressure 45-50. His previous echo had demonstrated an EF in the 35% range. The patient is now a DNR CCA no intubation. He has been declining with progressive weakness and falls. He also has bilateral lower extremity edema and now has a right subclavian DVT. The patient is diuresing he is negative approximately 1 L. At this point in time I would recommend continuing the current medical therapy if his vital signs will tolerate it and he improves consideration may be given of adding low-dose hydralazine to his nitrates for afterload reduction therapy. (2) History of implantable cardiac defibrillator (ICD): PLAN: Patient has a history of nonsustained VT has had multiple PVCs on his telemetry but he remains in sinus rhythm with a heart rate of 85. The patient's ICD has not fired. I would recommend he be continued on his suppressive therapy with amiodarone and 100 mg daily. (3) Right subclavian vein thrombosis: PLAN: Patient is now on Eliquis to treat the DVT in his right upper extremity. This should be continued once that therapy is done at 5 mg twice daily given his atrial fibrillation. While on the Eliquis the patient's clopidogrel can be held he should be maintained on a baby aspirin for his atherosclerotic disease. (4) Atherosclerotic heart disease of [place] coronary artery without angina pectoris: QUALIFIERS: [place] vs. transplanted heart: [place] heart Qualified Code(s): I25.10 - Atherosclerotic heart disease of [place] coronary artery without angina pectoris PLAN: Patient is status post bypass graft surgery in 2000. He is on intensive statin therapy and dual antiplatelet therapy along with Eliquis. Given the need for intensifying his Eliquis therapy for the DVT I would recommend that his clopidogrel be discontinued. He should be maintained on a baby aspirin with the Eliquis. PLAN: Plan 1. Will discontinue clopidogrel. 2. Would recommend attempt at adding hydralazine if his hemodynamics will tolerate it and his renal function stabilizes. 3. Cardiology will follow-up as directed please call if further assistance is needed. 4. If not already started a palliative care evaluation and hospice evaluation should be considered. Charges/Coding Visit Charges Inpatient E&M: 54787 Subs Hosp L2
[2025-05-23 10:00] VITALS: BP 117/84; PULSE 81; RESP 16; TEMP 36; O2SAT 97
--- NOTE | 2025-05-23 10:05 | CASEMGMT ---
Addendum entered by Rosibel Olea 05/23/25 10:26: Transport sheet completed and on chart. REUBEN Gomez Original Note: Social Work- SW called [facility] to follow up on consult. Pt and family signed with services, equipment is being delivered this morning and transport has been set with hospice for noon. [facility] faxed to hospice. Hospitalist and nurse notified. REUBEN Gomez
[2025-05-23] MEDS: ACYCLOVIR IV (10:14)
[2025-05-23] MEDS: Magnesium Chloride 64 MG Delay Rel.Tablet 128 MG PO (10:14)
[2025-05-23] MEDS: WATER IV (10:14)
[2025-05-23] MEDS: DEXTROSE 5% IV (10:14)
[2025-05-23] MEDS: APIXABAN 5 MG TABLET 10 MG PO (10:16)
[2025-05-23 10:17] VITALS: PULSE 81
[2025-05-23] MEDS: Potassium Chloride Oral Tablet 20 MEQ PO (10:17)
--- NOTE | 2025-05-23 10:44 | PCM.PN.HOSP ---
Reason for Visit Chief Complaint: Swelling in Extremities, Generalized Weakness and Falls. Objective Data Objective Data Vital Signs: Vital Signs Temp Pulse Resp BP Pulse Ox O2 Del Method O2 Flow Rate 96.8 F L 81 16 117/84 H 97 Nasal Cannula 2 05/23/25 10:00 05/23/25 10:17 05/23/25 10:00 05/23/25 10:00 05/23/25 10:00 05/23/25 10:00 05/23/25 10:00 Oxygen Flow Rate (L/min) 2 Oxygen Delivery Method Nasal Cannula Weight: 182 lb 9.6 oz Body Mass Index (BMI) 31.3 Intake & Output: Intake and Output for Last 24 Hours 05/21/25 05/22/25 05/23/25 23:59 23:59 23:59 Intake Total 1000 / 1000 1636 / 1636 160 / 160 Output Total 1600 / 1600 900 / 900 Balance 1000 / 1000 36 / 36 -740 / -740 Lab / Micro Data 05/22/25 08:00 05/22/25 08:00 Labs: Laboratory Results - last 24 hr 05/22/25 01:35: S.aureus Protein A PCR NEGATIVE, MRSA (PCR) Negative 05/22/25 16:09: HIV 1&2 Antibody Nonreactive Micro: Microbiology 05/22/25 01:35 Wound - Groin Gram Stain - Final 05/22/25 01:35 Wound - Groin Wound Culture - Preliminary Gram negative asif Radiography Diagnostic Testing: Radiology Impression Venous Doppler Study 05/21/25 23:59 Interpretation Summary Acute deep vein thrombosis noted in the right subclavian vein, axillary vein, brachial vein. Acute superficial vein thrombosis noted in the right basilic vein. Ordering Physician: Edmar Flores Referring Physician: N/A Performed By: Eduardo Long RVT ??? Rhythm Strip Rhythm Strip: Sinus Rhythm Rate: 85 Ectopy: PVC(s) Physical Exam Narrative Seen and examined. Admitted with lower extremity swelling, generalized weakness, shortness of breath and wheezing. Denies chest pain or pressure or tightness Physical exam General: Alert, Oriented x3, Cooperative HEENT: Atraumatic, PERRLA, EOMI, Normocephalic. Oral: No Gingival or Mucosal Lesions/ Ulcerations Neck: Supple, No JVD, Negative Carotid Bruits Chest wall/Lungs: Air entry diminished in bilateral lung bases. Bilateral crepitations Cardiovascular: Regular rate and rhythm, Normal S1,S2, No M/G/R Abdomen: Bowel Sounds Present, Soft, Non Tender, Non-Distended : No dysuria. No renal angle tenderness. No suprapubic tenderness. Extremities: Bilateral leg swelling and right upper extremity swelling/edema, Capillary Refill Less than 3 Seconds Skin: Noticed to have draining wartlike lesions in groin by nursing staff. Musculoskeletal: No Tenderness to Palpation of Joints or Extremities Neurological: Cranial nerves II-XII grossly intact, DTR 2+/4. No acute focal neurological deficit. Psych/Mental Status: Flat affect. 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 transplanted heart: [place] heart Qualified Code(s): I25.10 - Atherosclerotic heart disease of [place] coronary artery without angina pectoris (9) Presence of stent in coronary artery: (10) Ischemic cardiomyopathy: (11) Paroxysmal ventricular tachycardia: (12) History of implantable cardiac defibrillator (ICD): (13) Pure hypercholesterolemia: (14) Old myocardial infarction: PLAN: Plan 72-year-old gentleman was admitted for worsening dyspnea, generalized weakness, nausea and lower extremity and right upper extremity edema. 1. Acute on chronic HFrEF status post AICD: Patient is being admitted in PCU. proBNP 25,000. CTPA shows no pulmonary embolism but bilateral pleural effusion with compressive atelectasis and hazy groundglass attenuation suggestive of pulmonary edema. Twelve-lead EKG NSR with LVH, LAD. On IV furosemide 40 mg twice daily. Heart failure core measures including intake and output, fluid restriction less than 1500 mL, daily weight monitoring, kidney and electrolytes monitoring. [employer] consulted. alarm security or surveillance monitor shows sinus rhythm. Last echo in 2021 shows EF 35%. 2. CAD, stent in 2009 CABG double vessel in 2000: Elevated Troponin T of 64 ng/L, 46 and 49. Patient denies anginal-like symptoms, ACS ruled. History of CABG with GARCIA to LAD, vein graft to OM in 2000. Continue medical management. Troponins flat does not meet criteria for non-STEMI type I. Continue baby aspirin, Plavix, isosorbide mononitrate 4. Pus emanating from Right groin/thigh consistent with suspected Cellulitis in the setting of Chronic HSV infection:- Start empiric IV vancomycin and IV aztreonam given PCN allergy and drug interaction with quinolones and amiodarone. Start IV acyclovir and check to confirm HSV. CT abdomen does not mention about the skin lesions in the groin on the reporting but there is irregularity/ulceration in the groin/scrotal region on my individual review. Wound nurse consulted. Consult ID 5. Generalized Weakness and Falls with RUE swelling for ~2 weeks after recent fall: PT and OT. Venous duplex shows multiple clots in basilic vein and cephalic vein. Started on Eliquis 10 mg p.o. twice daily for anticoagulant dose. Discontinue Plavix as patient has stent in 1999 6. Obesity; with BMI of 30.7 this admission - Weight loss encouraged. TSH upper limit of normal. 4.34 7. History of paroxysmal ventricular tachycardia; on amiodarone - Resume amiodarone as previous. 8. History of ischemic cardiomyopathy and arrhythmia; s/p PPM/AICD - Noted. 9. Essential hypertension; on metoprolol and furosemide on metoprolol.?Lisinopril 10. Hyperlipidemia; on atorvastatin - Continue statin and HDL 49. LDL 68. 11. Hypothyroidism; on levothyroxine - levothyroxine increased 12. OA - Give acetaminophen prn 13. DVT prophylaxis - Patient treated with full-dose LMWH until DVT ruled out in Doppler. Clinical Impression(s) from Imaging Studies Chest CTA 05/21/25 20:45 IMPRESSION: 1. No pulmonary embolism. 2. Bilateral pleural effusion with compressive atelectasis. Hazy ground-glass attenuation may reflect pulmonary edema or multifocal pneumonia. Reading Location: [facility] Echocardiogram 05/21/25 23:59 Interpretation Summary Unable to assess diastolic dysfunction due to arrhythmia. Mildly dilated left ventricle.EDV 5.4 cm Severe global left ventricular systolic dysfunction. Mild eccentric left ventricular hypertrophy. There is severe global hypokinesis noted estimated LVEF 15% Normal RV size. Moderate global right ventricular systolic dysfunction. Moderate (2+) mitral valve insufficiency. Mild to moderate (1-2+) tricuspid valve insufficiency. Right ventricular systolic pressure estimated to be 45-50 mmhg, moderate pulmonary hypertension mmHg. When compared to previous echocardiographic report only, 2021, there is significant worsening systolic function noted on the current study Ordering Physician: Edmar Flores Performed By: Lucy Watts RDCS Abdomen/Pelvis CT 05/22/25 02:45 IMPRESSION: Third-spacing. Reading Location: [place] [address] Chest X-Ray 05/22/25 02:55 IMPRESSION: Asymmetric pulmonary edema pattern, pneumonia not completely excluded. Reading Location: [place] [address]
--- NOTE | 2025-05-23 10:45 | PCM.DC ---
Discharge Instructions DC O2, CPAP, BIPAP needs Home O2 Discharge instructions: Yes Type of respiratory needs?: Oxygen Oxygen frequency: Continuous Continuous oxygen liters per minute: 2 Dressing / Incision Discharge Activity: Return to Normal Activity Weight Bearing Status: Weight bearing as tolerated Dressing / Incision Call your doctor if you observe: Chest pain and - (Discharged with home hospice care.) Follow Up Care When: IN 2 WEEKS Test Results: Test results from this visit will be discussed in further detail at your follow-up appointment, if applicable. Discharge Plan Admission Admit Date/Time: 05/21/25 23:51 Primary Reason for Your Visit: Multiple issues, acute on chronic HFrEF. Home with home hospice Attending Provider: Brandon Sinclair Primary Care Provider: Care Physician,No Primary Consulting Providers: Edmar Flores; Alpesh Pinto; Nuno Morales; Tootie Allen; Sanjay Cordova; Blaine Palmer; Rehan Harden; Robbie Arriola; Mata Das; Edmar Carmichael; Kate Ivey; Misael Olguin; Dakota Prater; Dale De; Edgar Jaffe; Toño Rios; Elijah Turcios [employer]; Sari Blancas PA; Mian Davis; John Hayes Discharge Orders/Prescriptions Prescriptions: New Eliquis 5 mg Tablet 10 mg PO Q12 5 Days Qty: 22 0RF Rx Instructions: Last dosage on night of 05/28/2025 Eliquis 5 mg Tablet 5 mg PO Q12 30 Days Qty: 60 2RF Rx Instructions: Start on 05/29/2025 magnesium chloride [Mag 64] 64 mg Tablet,Delayed Release (Dr/Ec) 128 mg PO BID 30 Days Qty: 120 0RF spironolactone 25 mg tablet 25 mg PO DAILY 30 Days Qty: 30 0RF furosemide 40 mg tablet 40 mg PO BID 30 Days Qty: 60 0RF doxycycline monohydrate 100 mg tablet 100 mg PO BID 7 Days Qty: 14 0RF Continued (DME) Handicap Placard Qty: 1 0RF Rx Instructions: Good from 06/19/2019-06/19/2024; nitroglycerin 0.4 mg tablet, sublingual 0.4 mg SUBLINGUAL Q5M PRN (Reason: Chest Pain) Qty: 25 1RF levothyroxine 100 mcg tablet 100 mcg PO DAILY Qty: 90 4RF (DME) Handicap Placcard See Rx Instructions .Route .MEDSUPPLY Qty: 1 0RF Rx Instructions: Dx: Debility Exp: 07/2029 aspirin 81 MG tablet,delayed release (DR/EC) 81 mg PO DAILY multivitamin with folic acid 1 TABLET tablet 1 tab PO DAILY atorvastatin [Lipitor] 40 mg tablet 40 mg PO Q OTHER DAY Qty: 45 3RF metoprolol tartrate 100 mg tablet 50 mg PO BID Qty: 90 3RF isosorbide mononitrate 60 mg tablet extended release 24 hr 60 mg PO BID Qty: 180 3RF Rx Instructions: swallow whole with glass of water; do not crush/chew /dissolve /cut/break amiodarone 200 mg tablet 100 mg PO DAILY Qty: 45 3RF furosemide 40 mg tablet 40 mg PO DAILY Qty: 90 3RF Discontinued clopidogrel 75 mg tablet 75 mg PO DAILY Qty: 90 3RF Referrals / Follow Up: Care Physician,No Primary [Primary Care Provider] - Disposition Disposition (needs filled in before D/C Order can be placed): Hospice in Home
--- NOTE | 2025-05-23 10:57 | PCM.DC.SUM ---
Providers Date of Admission: 05/21/25 Date of Discharge: 05/23/25 Primary Care Physician: Clair Primary Care Phys Consultations 05/22/25 00:47 Consult: Cardiology Routine Consulting Provider: Kuldip Velez Reason for Consult: AE of Chronic Systolic CHF. 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 EMERGENT Consult: No Notified: Yes Date Notified: 05/22/25 Time Notified: 13:22 Method of Notification: Text Reason For Visit: AE OF CHRONIC SYSTOLIC CHF Diagnosis Discharge Diagnosis (1) CHF exacerbation: Status: Chronic Code(s): I50.9 - Heart failure, unspecified Qualifiers: Heart failure type: systolic Qualified Code(s): I50.23 - Acute on chronic systolic (congestive) heart failure (2) Bilateral pleural effusion: Status: Acute Code(s): J90 - Pleural effusion, not elsewhere classified (3) Dyspnea on exertion: Status: Acute Code(s): R06.09 - Other forms of dyspnea (4) HSV infection: Status: Acute Code(s): B00.9 - Herpesviral infection, unspecified (5) Cellulitis: Status: Acute Code(s): L03.90 - Cellulitis, unspecified Qualifiers: Site of cellulitis: other site Qualified Code(s): L03.818 - Cellulitis of other sites (6) Swelling of right upper extremity: Status: Acute Code(s): M79.89 - Other specified soft tissue disorders (7) detention current use of amiodarone: Status: Acute Code(s): Z79.899 - Other long term care administrator (current) drug therapy (8) Atherosclerotic heart disease of [place] coronary artery without angina pectoris: Status: Chronic Code(s): I25.10 - Atherosclerotic heart disease of [place] coronary artery without angina pectoris Qualifiers: [place] vs. transplanted heart: [place] heart Qualified Code(s): I25.10 - Atherosclerotic heart disease of [place] coronary artery without angina pectoris (9) Presence of stent in coronary artery: Status: Chronic Code(s): Z95.5 - Presence of coronary angioplasty implant and graft (10) Ischemic cardiomyopathy: Status: Chronic Code(s): I25.5 - Ischemic cardiomyopathy (11) Paroxysmal ventricular tachycardia: Status: Chronic Code(s): I47.2 - Ventricular tachycardia (12) History of implantable cardiac defibrillator (ICD): Status: Chronic (13) Pure hypercholesterolemia: Status: Chronic Code(s): E78.00 - Pure hypercholesterolemia, unspecified (14) Old myocardial infarction: Status: Chronic Code(s): I25.2 - Old myocardial infarction Plan 72-year-old gentleman was admitted for worsening dyspnea, generalized weakness, nausea and lower extremity and right upper extremity edema. 1. Acute on chronic HFrEF status post AICD: Patient is being admitted in PCU. proBNP 25,000. CTPA shows no pulmonary embolism but bilateral pleural effusion with compressive atelectasis and hazy groundglass attenuation suggestive of pulmonary edema. Twelve-lead EKG NSR with LVH, LAD. On IV furosemide 40 mg twice daily. Heart failure core measures including intake and output, fluid restriction less than 1500 mL, daily weight monitoring, kidney and electrolytes monitoring. Telecom Analyst consulted. monitoring coordinator shows sinus rhythm. Last echo in 2021 shows EF 35%. Patient is discharged on furosemide 40 mg p.o. twice daily, spironolactone 25 mg daily. Discharged on Eliquis 2. CAD, stent in 2009 CABG double vessel in 2000: Elevated Troponin T of 64 ng/L, 46 and 49. Patient denies anginal-like symptoms, ACS ruled. History of CABG with GARCIA to LAD, vein graft to OM in 2000. Continue medical management. Troponins flat does not meet criteria for non-STEMI type I. Continue baby aspirin, Plavix, isosorbide mononitrate 4. Pus emanating from Right groin/thigh consistent with suspected Cellulitis in the setting of Chronic HSV infection:- Start empiric IV vancomycin and IV aztreonam given PCN allergy and drug interaction with quinolones and amiodarone. Start IV acyclovir and check to confirm HSV. CT abdomen does not mention about the skin lesions in the groin on the reporting but there is irregularity/ulceration in the groin/scrotal region on my individual review. Wound nurse consulted. Consult ID I discussed with the ID. Patient accepted home hospice care but try to treat the infection. Discharge on Valtrex 1 g twice daily for 1 week and doxycycline 100 mg twice daily. We agreed on canceling the consult. 5. Generalized Weakness and Falls with RUE swelling for ~2 weeks after recent fall: PT and OT. Venous duplex shows multiple clots in basilic vein and cephalic vein. Started on Eliquis 10 mg p.o. twice daily for anticoagulant dose. Discontinue Plavix as patient has stent in 1999 Discharged on Eliquis 10 mg p.o. twice daily, through night 05/28/2025 then changed to 5 mg p.o. twice daily. Will need 3 months of anticoagulant 6. Obesity; with BMI of 30.7 this admission - Weight loss encouraged. TSH upper limit of normal. 4.34 7. History of paroxysmal ventricular tachycardia; on amiodarone - Resume amiodarone as previous. 8. History of ischemic cardiomyopathy and arrhythmia; s/p PPM/AICD - Noted. 9. Essential hypertension; on metoprolol and furosemide on metoprolol.?Lisinopril 10. Hyperlipidemia; on atorvastatin - Continue statin and HDL 49. LDL 68. 11. Hypothyroidism; on levothyroxine - levothyroxine increased 12. OA - Give acetaminophen prn 13. DVT prophylaxis - Patient treated with full-dose LMWH until DVT ruled out in Doppler. Patient and his family agreed for DNR CCA with home hospice care. Yesterday I spent 15 minutes in discussion. Hospice meeting was done and family setting for home hospice care. CODE STATUS was changed to DNR CC inpatient hospice care and physical form was signed. Discharge medication reconciliation done. Discharge follow-up instructions completed. Discharge process discussed with the patient and all questions were answered to patient's satisfaction. Follow with PCP in 1 to 2 weeks Total time spent, exact 35 minutes on discharge meds reconciliation, examination, coordination of care with nurses and ancillary staff, review of imaging and blood test and discussion with the patient on follow-up instructions. Clinical Impression(s) from Imaging Studies Chest CTA 05/21/25 20:45 IMPRESSION: 1. No pulmonary embolism. 2. Bilateral pleural effusion with compressive atelectasis. Hazy ground-glass attenuation may reflect pulmonary edema or multifocal pneumonia. Reading Location: [facility] Echocardiogram 05/21/25 23:59 Interpretation Summary Unable to assess diastolic dysfunction due to arrhythmia. Mildly dilated left ventricle.EDV 5.4 cm Severe global left ventricular systolic dysfunction. Mild eccentric left ventricular hypertrophy. There is severe global hypokinesis noted estimated LVEF 15% Normal RV size. Moderate global right ventricular systolic dysfunction. Moderate (2+) mitral valve insufficiency. Mild to moderate (1-2+) tricuspid valve insufficiency. Right ventricular systolic pressure estimated to be 45-50 mmhg, moderate pulmonary hypertension mmHg. When compared to previous echocardiographic report only, 2021, there is significant worsening systolic function noted on the current study Ordering Physician: Edmar Flores Performed By: Lucy Watts, ALBERT Abdomen/Pelvis CT 05/22/25 02:45 IMPRESSION: Third-spacing. Reading Location: [facility] Chest X-Ray 05/22/25 02:55 IMPRESSION: Asymmetric pulmonary edema pattern, pneumonia not completely excluded. Reading Location: [facility] Medications at Discharge Home Medications aspirin 81 mg tablet,delayed release 81 mg PO DAILY heart health 11/07/13 multivitamin with folic acid 400 mcg tablet 1 tab PO DAILY vitamin 05/28/16 Handicap Placard #1 ea 06/19/19 nitroglycerin 0.4 mg sublingual tablet 0.4 mg sublingual Q5M PRN Chest Pain #25 tabs 02/29/20 levothyroxine 100 mcg tablet 100 mcg PO DAILY thyroid #90 tabs 12/03/22 atorvastatin 40 mg tablet (Lipitor) 40 mg PO Q OTHER DAY cholesterol #45 tabs 04/17/24 Handicap Placcard #1 ea 07/27/24 amiodarone 200 mg tablet 100 mg (1/2 x 200 mg) PO DAILY heart rate #45 tabs 04/20/25 furosemide 40 mg tablet 40 mg PO DAILY diuretic #90 tabs 04/20/25 isosorbide mononitrate 60 mg tablet,extended release 24 hr 60 mg PO BID heart #180 tabs 04/20/25 metoprolol tartrate 100 mg tablet 50 mg (1/2 x 100 mg) PO BID blood pressure #90 tabs 04/20/25 apixaban 5 mg tablet (Eliquis) 5 mg PO Q12 30 days #60 tabs 05/23/25 apixaban 5 mg tablet (Eliquis) 10 mg (2 x 5 mg) PO Q12 5 days #22 tabs 05/23/25 doxycycline monohydrate 100 mg tablet 100 mg PO BID 7 days #14 tabs 05/23/25 furosemide 40 mg tablet 40 mg PO BID 1 month #60 tabs 05/23/25 magnesium chloride 64 mg (magnesium chloride) tablet,delayed release (Mag 64) 128 mg (2 x 64 mg) PO BID 30 days #120 tabs 05/23/25 spironolactone 25 mg tablet 25 mg PO DAILY 1 month #30 tabs 05/23/25 valacyclovir 1 gram tablet (Valtrex) 1,000 mg PO BID 1 week #14 tabs 05/23/25 Physical Exam Narrative Seen and examined. Admitted with lower extremity swelling, generalized weakness, shortness of breath and wheezing. Denies chest pain or pressure or tightness Physical exam General: Alert, Oriented x3, Cooperative HEENT: Atraumatic, PERRLA, EOMI, Normocephalic. Oral: No Gingival or Mucosal Lesions/ Ulcerations Neck: Supple, No JVD, Negative Carotid Bruits Chest wall/Lungs: Air entry diminished in bilateral lung bases. Bilateral crepitations improved Cardiovascular: Regular rate and rhythm, Normal S1,S2, No M/G/R Abdomen: Bowel Sounds Present, Soft, Non Tender, Non-Distended : No dysuria.Bilateral inguinal region are ulcerated, reddish with rough, warty lesions. mildly tender. Scrotal region itself is not ulcerated. Extremities: Bilateral leg swelling and right upper extremity swelling/edema, Capillary Refill Less than 3 Seconds Skin: Noticed to have draining wartlike lesions in groin by nursing staff. Musculoskeletal: No Tenderness to Palpation of Joints or Extremities Neurological: Cranial nerves II-XII grossly intact, DTR 2+/4. No acute focal neurological deficit. Psych/Mental Status: Flat affect. Weight / BMI Weight Weight: 182 lb 9.6 oz Body Mass Index (BMI) 31.3 ABG / Lab / Microbiology Data 05/22/25 08:00 05/22/25 08:00 Laboratory: Laboratory Results - last 24 hr 05/22/25 16:09: HIV 1&2 Antibody Nonreactive Microbiology: Microbiology 05/22/25 01:35 Wound - Groin Gram Stain - Final 05/22/25 01:35 Wound - Groin Wound Culture - Preliminary Gram negative asif Radiography Diagnostic Testing: Radiology Impression Venous Doppler Study 05/21/25 23:59 Interpretation Summary Acute deep vein thrombosis noted in the right subclavian vein, axillary vein, brachial vein. Acute superficial vein thrombosis noted in the right basilic vein. Ordering Physician: Edmar Flores Referring Physician: N/A Performed By: Eduardo Long RVT ??? D/C Instructions Weight Bearing Status: Weight bearing as tolerated Call your doctor if you observe: Chest pain and - (Discharged with home hospice care.) DC O2, CPAP, BIPAP Needs Home O2 Discharge instructions: Yes Type of respiratory needs?: Oxygen Oxygen frequency: Continuous Continuous oxygen liters per minute: 2 DC home with Oxygen: Yes Home O2 Review: I have reviewed the oxygen testing, and the patient qualifies for home oxygen equipment and portability. The patient is mobile in the home and the community. When: IN 2 WEEKS Meaningful Use Info Meaningful Use Meaningful Use Diagnoses (Choose all that apply): None applicable Discharge Plan Admission Admit Date/Time: 05/21/25 23:51 Primary Reason for Your Visit: Multiple issues, acute on chronic HFrEF. Home with home hospice Attending Provider: Brandon Sinclair Primary Care Provider: Care Physician,No Primary Consulting Providers: Edmar Flores; Alpesh Pinto; Nuno Morales; Tootie Allen; Sanjay Cordova; Blaine Palmer; Rehan Harden; Robbie Arriola; Mata Das; Edmar Carmichael; Kate Ivey; Misael Olguin; Dakota Prater; Dale De; Edgar Jaffe; Toño Rios; Elijah Turcios NP; Sari Blancas PA; Mian Davis Discharge Orders/Prescriptions Prescriptions: New Eliquis 5 mg Tablet 10 mg PO Q12 5 Days Qty: 22 0RF Rx Instructions: Last dosage on night of 05/28/2025 Eliquis 5 mg Tablet 5 mg PO Q12 30 Days Qty: 60 2RF Rx Instructions: Start on 05/29/2025 magnesium chloride [Mag 64] 64 mg Tablet,Delayed Release (Dr/Ec) 128 mg PO BID 30 Days Qty: 120 0RF spironolactone 25 mg tablet 25 mg PO DAILY 30 Days Qty: 30 0RF furosemide 40 mg tablet 40 mg PO BID 30 Days Qty: 60 0RF doxycycline monohydrate 100 mg tablet 100 mg PO BID 7 Days Qty: 14 0RF valacyclovir [Valtrex] 1 gram tablet 1,000 mg PO BID 7 Days Qty: 14 0RF Continued (DME) Handicap Placard Qty: 1 0RF Rx Instructions: Good from 06/19/2019-06/19/2024; nitroglycerin 0.4 mg tablet, sublingual 0.4 mg SUBLINGUAL Q5M PRN (Reason: Chest Pain) Qty: 25 1RF levothyroxine 100 mcg tablet 100 mcg PO DAILY Qty: 90 4RF (DME) Handicap Placcard See Rx Instructions .Route .MEDSUPPLY Qty: 1 0RF Rx Instructions: Dx: Debility Exp: 07/2029 aspirin 81 MG tablet,delayed release (DR/EC) 81 mg PO DAILY multivitamin with folic acid 1 TABLET tablet 1 tab PO DAILY atorvastatin [Lipitor] 40 mg tablet 40 mg PO Q OTHER DAY Qty: 45 3RF metoprolol tartrate 100 mg tablet 50 mg PO BID Qty: 90 3RF isosorbide mononitrate 60 mg tablet extended release 24 hr 60 mg PO BID Qty: 180 3RF Rx Instructions: swallow whole with glass of water; do not crush/chew /dissolve /cut/break amiodarone 200 mg tablet 100 mg PO DAILY Qty: 45 3RF furosemide 40 mg tablet 40 mg PO DAILY Qty: 90 3RF Discontinued clopidogrel 75 mg tablet 75 mg PO DAILY Qty: 90 3RF Referrals / Follow Up: Care Physician,No Primary [Primary Care Provider] - Disposition Disposition (needs filled in before D/C Order can be placed): Hospice in Home Charges/Coding Visit Charges Inpatient E&M: 70298 Disch Hosp >30min
== END 2025-05-23 13:21 | disposition hospice, home (50) | DRG 291 ==
LOC: ED 23:22 → PCU 05-22 00:05
PROVIDERS: Admitting Provider Internal Medicine; Emergency Provider Emergency Medicine; Visit Provider Internal Medicine
DX: I11.0 Hypertensive heart disease with heart failure (principal); I50.23 Acute on chronic systolic (congestive) heart failure; I82.B11 Acute embolism and thrombosis of right subclavian vein; I82.611 Acute embolism and thrombosis of superficial veins of right upper extremity; I47.20 Ventricular tachycardia, unspecified; L03.115 Cellulitis of right lower limb; L03.314 Cellulitis of groin; Z66 Do not resuscitate; Z95.1 Presence of aortocoronary bypass graft; G80.8 Other cerebral palsy; I48.91 Unspecified atrial fibrillation; E03.9 Hypothyroidism, unspecified; I34.0 Nonrheumatic mitral (valve) insufficiency; E66.9 Obesity, unspecified; L98.499 Non-pressure chronic ulcer of skin of other sites with unspecified severity; I25.5 Ischemic cardiomyopathy; I25.10 Atherosclerotic heart disease of native coronary artery without angina pectoris; E78.00 Pure hypercholesterolemia, unspecified; M19.90 Unspecified osteoarthritis, unspecified site; I25.2 Old myocardial infarction; R29.6 Repeated falls; I49.3 Ventricular premature depolarization; Z68.30 Body mass index [BMI] 30.0-30.9, adult; Z79.02 Long term (current) use of antithrombotics/antiplatelets; Z79.890 Hormone replacement therapy; Z79.82 Long term (current) use of aspirin; Z79.899 Other long term (current) drug therapy; Z95.5 Presence of coronary angioplasty implant and graft; Z95.810 Presence of automatic (implantable) cardiac defibrillator
CPT/HCPCS: 36415; 71045; 71275; 74176; 80048; 80053; 80061; 81001; 83036; 83735; 83880; 84100; 84443; 84484; 85025; 85379; 85610; 85730; 86703; 87070; 87077; 87184; 87186; 87205; 87640; 93005; 93306; 93971; 94668; 97162; 97166; 97802; 99285; Q9967; A4216; J1938